=== PATIENT | male | born 1950 | race Caucasian/White ===

== ENCOUNTER 2021-12-17 15:43 | Observation (INO) | payer OTHER, MEDICARE ==
[2021-12-17] MEDS ORDERED: MORPHINE SULFATE 4 MG/ML SYRINGE IV STA (16:13)
[2021-12-17] MEDS ORDERED: SODIUM CHLORIDE 0.9% 500 ML 500 ML IV STA (16:13)
[2021-12-17] MEDS ORDERED: ONDANSETRON 4 MG/2 ML VIAL IVP STA (16:17)
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
[2021-12-17 16:27] LABS: Basophils % (A) 0 %; Eosinophils # (A) 0.1 k/uL (0-0.7); Eosinophils % (A) 1 %; HCT 47.1 % (39.0-53.0); HGB 14.7 gm/dL (13.0-17.5); Lymphocytes % (A) 17 %; MCH 28.2 pg (25.0-35.0); MCHC 31.1 g/dL (31.0-37.0); MCV 90.6 fL (80.0-100.0); Mean Platelet Volume 8.7; Monocytes # (A) 0.5 k/uL (0-1.0); Monocytes % (A) 4 %; Neutrophils # (A) 9.1 k/uL (1.3-7.7); Neutrophils % (A) 77 %; Platelet Count 228 k/uL (150-450); RDW 15.2 % (11.5-15.5); WBC 11.9 k/uL (3.8-10.6)
[2021-12-17 16:35] LABS: Albumin 4.3 g/dL (3.5-5.0); Calcium 9.3 mg/dL (8.4-10.2); Potassium 4.2 mmol/L (3.5-5.1); Total Bilirubin 0.9 mg/dL (0.2-1.3); Total Protein 7.5 g/dL (6.3-8.2)
[2021-12-17 16:42] LABS: INR 0.9 (<1.2); Prothrombin Time 9.6 sec (9.0-12.0)
[2021-12-17] MEDS ORDERED: HYDROmorphone 0.5 MG/0.5 ML SYRINGE IVP STA (17:45)
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
[2021-12-17] MEDS ORDERED: HYDROmorphone 1 MG/ML 1 ML SYRINGE IVP STA (18:32)
[2021-12-17] MEDS ORDERED: ONDANSETRON 4 MG/2 ML VIAL IVP PRN (19:00)
[2021-12-17] MEDS ORDERED: NALOXONE 0.4 MG/ML 1 ML VIAL IV PRN (19:00)
[2021-12-17] MEDS ORDERED: DIPH,PERTUS(ACELL)TETVAC-LF 0.5 ML VIAL IM ONE (19:02)
[2021-12-17] MEDS: SODIUM CHLORIDE 0.9% 1,000 ML IV SCH (19:21)
[2021-12-17] MEDS: KETOROLAC 15 MG/ML 1 ML VIAL IVP SCH (20:51)
[2021-12-18] MEDS: HYDROmorphone 0.5 MG/0.5 ML SYRINGE IVP PRN ×5 (00:13→19:34)
[2021-12-18] MEDS: SODIUM CHLORIDE 0.9% 1,000 ML IV SCH ×3 (03:00→18:09)
[2021-12-18] MEDS: KETOROLAC 15 MG/ML 1 ML VIAL IVP SCH ×3 (06:01→20:44)
[2021-12-18] MEDS ORDERED: ALBUTEROL NEBULIZED 2.5 MG/3 ML INHALATION PRN (08:48)
[2021-12-18] MEDS ORDERED: BUDESONIDE 0.5 MG/2 ML NEBU INHALATION PRN (08:48)
[2021-12-18] MEDS ORDERED: MONTELUKAST 10 MG TAB PO SCH (09:00)
[2021-12-18] MEDS ORDERED: PANTOPRAZOLE 40 MG TABLET PO SCH (09:00)
[2021-12-18] MEDS ORDERED: PANTOPRAZOLE 40 MG/10 ML VIAL IV SCH (09:00)
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
--- NOTE | 2021-12-18 10:06 | XR ---
EXAMINATION TYPE: XR tibia fibula RT DATE OF EXAM: 12/18/2021 CLINICAL HISTORY: pain TECHNIQUE: AP and lateral images of the right tibia and fibula are obtained. COMPARISON: 12/17/2021 FINDINGS: Medial malleolar fracture is redemonstrated. Vague linear lucency lateral malleolus may ref lect additional fracture. No additional fractures identified within the [id number]. Total knee art hroplasty changes noted. The overlying soft tissue appears unremarkable. IMPRESSION: Medial malleolar fracture is redemonstrated. Vague linear lucency lateral malleolus may reflect addit ional fracture. No additional fractures identified at this time.
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
[2021-12-18 11:03] LABS: HCT 40.5 % (39.0-53.0); HGB 12.7 gm/dL (13.0-17.5); MCH 29.1 pg (25.0-35.0); MCHC 31.5 g/dL (31.0-37.0); MCV 92.7 fL (80.0-100.0); Mean Platelet Volume 9.1; Platelet Count 185 k/uL (150-450); RBC 4.37 m/uL (4.30-5.90); RDW 15.2 % (11.5-15.5); WBC 11.1 k/uL (3.8-10.6)
[2021-12-18 11:18] LABS: ALT 71 U/L (4-49); AST 50 U/L (17-59); African American GFR (CKD) 67 (>60 ml/min/1.73 sqM); Albumin 3.6 g/dL (3.5-5.0); Albumin/Globulin Ratio 1.3; Alkaline Phosphatase 61 U/L (38-126); Anion Gap 4 mmol/L; Blood Urea Nitrogen 25 mg/dL (9-20); Calcium 8.5 mg/dL (8.4-10.2); Carbon Dioxide 29 mmol/L (22-30); Chloride 101 mmol/L (98-107); Globulin 2.7 g/dL; Glucose 97 mg/dL (74-99); Non-African American GFR(CKD) 58 (>60 ml/min/1.73 sqM); Potassium 4.4 mmol/L (3.5-5.1); Sodium 134 mmol/L (137-145); Total Bilirubin 0.9 mg/dL (0.2-1.3); Total Protein 6.3 g/dL (6.3-8.2)
[2021-12-18] MEDS: SPIRONOLACTONE 25 MG TAB PO SCH (12:13)
[2021-12-18] MEDS: ISOSORBIDE MONONITRATE ER 30 MG TAB.ER.24H PO SCH (12:13)
[2021-12-18] MEDS: ASPIRIN 81 MG PO SCH (12:13)
[2021-12-18] MEDS: ATORVASTATIN 40 MG TAB PO SCH (12:14)
[2021-12-18] MEDS: METOPROLOL TARTRATE 25 MG TAB PO SCH (12:14)
[2021-12-18] MEDS: BRIMONIDINE TARTRATE 0.2% DROPS 5 ML BTL BOTH EYES SCH (12:14)
--- NOTE | 2021-12-18 13:07 | P.PN ---
Progress Note - Text Progress Note Date: 12/18/21 Orthopedics: Previously placed splint over the right lower extremity has been removed at the bedside. A new right lower extremity leg splint has been placed for his bimalleolar ankle fracture. Patient will remain strict nonweightbearing on right lower extremity. Patient will be cleared for discharge from an orthopedic standpoint once cleared by trauma surgery. We will plan to have the patient follow up early next week on 12/20/2021, or 12/21/2021, for further evaluation at [facility]. Pertinent studies: X-rays of the right tibia and fibula taken on 12/18/2021: Medial malleolus fracture redemonstrated; a linear lucency at the lateral malleolus which could represent fracture; no additional fractures identified at this time; evidence of right total knee arthroplasty changes
[2021-12-18 14:26] LABS: Appearance,Urine Clear (Clear); Bilirubin,Urine Negative (Negative); Blood,Urine Negative (Negative); Color,Urine Yellow; Glucose,Urine (UA) Negative (Negative); Ketones,Urine Negative (Negative); Leukocyte Esterase,Urine Negative (Negative); Nitrite,Urine Negative (Negative); PH, Urine 5.5 (5.0-8.0); Protein,Urine Negative (Negative); Specific Gravity,Urine 1.017 (1.001-1.035); Urobilinogen,Urine <2.0 mg/dL (<2.0)
[2021-12-18] MEDS: LOSARTAN-HCTZ 50-12.5 MG 1 EACH TAB PO SCH (14:40)
--- NOTE | 2021-12-18 16:27 | XR ---
EXAMINATION TYPE: XR chest 1V portable DATE OF EXAM: 12/18/2021 COMPARISON: NONE HISTORY: Bloody sputum TECHNIQUE: Single view portable FINDINGS: There is no heart failure nor confluent pneumonic infiltrate. Costophrenic angles are clear . There are no hilar masses. Bony thorax appears intact. IMPRESSION: No active cardiopulmonary disease.
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
[2021-12-19] MEDS: HYDROmorphone 0.5 MG/0.5 ML SYRINGE IVP PRN ×2 (01:35→04:13)
[2021-12-19 03:25] VITALS: RESP 18
[2021-12-19] MEDS: SODIUM CHLORIDE 0.9% 1,000 ML IV SCH (04:14)
[2021-12-19] MEDS: KETOROLAC 15 MG/ML 1 ML VIAL IVP SCH (05:40)
[2021-12-19 07:55] VITALS: BP 126/74; TEMP 98
[2021-12-19] MEDS ORDERED: PANTOPRAZOLE 40 MG TABLET PO SCH (09:00)
[2021-12-19] MEDS: ATORVASTATIN 40 MG TAB PO SCH (10:01)
[2021-12-19] MEDS: SPIRONOLACTONE 25 MG TAB PO SCH (10:02)
[2021-12-19] MEDS: ASPIRIN 81 MG PO SCH (10:02)
[2021-12-19] MEDS: BRIMONIDINE TARTRATE 0.2% DROPS 5 ML BTL BOTH EYES SCH (10:05)
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
[2021-12-19 10:27] VITALS: PULSE 54
[2021-12-19] MEDS: LOSARTAN-HCTZ 50-12.5 MG 1 EACH TAB PO SCH (10:43)
[2021-12-19] MEDS: ISOSORBIDE MONONITRATE ER 30 MG TAB.ER.24H PO SCH (10:43)
[2021-12-19] MEDS: METOPROLOL TARTRATE 25 MG TAB PO SCH (10:43)
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
[2021-12-19 11:14] LABS: Basophils % (A) 0 %; Eosinophils % (A) 1 %; HCT 42.3 % (39.0-53.0); HGB 12.9 gm/dL (13.0-17.5); Hypochromasia Slight; Lymphocytes # (A) 0.9 k/uL (1.0-4.8); Lymphocytes % (A) 10 %; MCH 28.9 pg (25.0-35.0); MCHC 30.6 g/dL (31.0-37.0); MCV 94.5 fL (80.0-100.0); Mean Platelet Volume 8.2; Monocytes # (A) 0.5 k/uL (0-1.0); Monocytes % (A) 6 %; Neutrophils # (A) 7.3 k/uL (1.3-7.7); Neutrophils % (A) 82 %; Platelet Count 171 k/uL (150-450); RBC 4.48 m/uL (4.30-5.90); RDW 15.3 % (11.5-15.5); WBC 8.9 k/uL (3.8-10.6)
[2021-12-19 11:28] LABS: ALT 54 U/L (4-49); AST 38 U/L (17-59); African American GFR (CKD) 69 (>60 ml/min/1.73 sqM); Albumin 3.7 g/dL (3.5-5.0); Albumin/Globulin Ratio 1.2; Alkaline Phosphatase 62 U/L (38-126); Anion Gap 6 mmol/L; Blood Urea Nitrogen 22 mg/dL (9-20); Calcium 8.6 mg/dL (8.4-10.2); Carbon Dioxide 25 mmol/L (22-30); Chloride 106 mmol/L (98-107); Glucose 108 mg/dL (74-99); Non-African American GFR(CKD) 60 (>60 ml/min/1.73 sqM); Potassium 4.8 mmol/L (3.5-5.1); Sodium 137 mmol/L (137-145); Total Bilirubin 0.9 mg/dL (0.2-1.3); Total Protein 6.7 g/dL (6.3-8.2)
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
== END 2021-12-19 12:16 | disposition home or self-care (01) ==
LOC: EC 15:43 → 6NMEDSUR 19:00
PROVIDERS: ADMIT Surgery; ATTEND Surgery
DX: S36.429A Contusion of unspecified part of small intestine, initial encounter (principal); S20.219A Contusion of unspecified front wall of thorax, initial encounter; S82.51XA Displaced fracture of medial malleolus of right tibia, initial encounter for closed fracture; S00.81XA Abrasion of other part of head, initial encounter; R04.2 Hemoptysis; M54.2 Cervicalgia; Z23 Encounter for immunization; Z79.82 Long term (current) use of aspirin; Z79.899 Other long term (current) drug therapy; V43.52XA Car driver injured in collision with other type car in traffic accident, initial encounter; Y92.410 Unspecified street and highway as the place of occurrence of the external cause; I10 Essential (primary) hypertension; I25.10 Atherosclerotic heart disease of native coronary artery without angina pectoris; E78.5 Hyperlipidemia, unspecified; E66.9 Obesity, unspecified; Z68.41 Body mass index [BMI] 40.0-44.9, adult; J45.909 Unspecified asthma, uncomplicated; L40.9 Psoriasis, unspecified; M19.90 Unspecified osteoarthritis, unspecified site; Z96.651 Presence of right artificial knee joint; Z83.3 Family history of diabetes mellitus; Z82.49 Family history of ischemic heart disease and other diseases of the circulatory system
CPT/HCPCS: 99285; 96376 ×4; 96361 ×3; 96375 ×2; 90471; 96374; 36415; 80053 ×3; 83690; 85025 ×2; 85027; 85610; 85730; 81003; 73590; 73610; 71045; 72125; 70450; 71260; 74177; 90715; G0378 ×3; L0120; J2270; J2405; J1170 ×4; J1885 ×3; C9113; Q9967

== ENCOUNTER → 2023-06-14 | Outpatient (CLI) | payer MEDICARE ==
[2023-06-14 09:17] VITALS: BP 120/71; PULSE 89; RESP 15; TEMP 98.2
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
== END ==
LOC: PNWHC3 08:12
PROVIDERS: ATTEND Specialist
DX: M51.36 Other intervertebral disc degeneration, lumbar region (principal); M19.90 Unspecified osteoarthritis, unspecified site; J45.909 Unspecified asthma, uncomplicated; I10 Essential (primary) hypertension; E78.5 Hyperlipidemia, unspecified; K21.9 Gastro-esophageal reflux disease without esophagitis; Z79.899 Other long term (current) drug therapy; Z79.82 Long term (current) use of aspirin
CPT/HCPCS: 99211

== ENCOUNTER 2023-06-27 08:17 | Day surgery (SDC) | payer MEDICARE ==
[~2023-06-27 08:17] MED LIST: LACTATED RINGERS 1,000 ML IV SCH
[2023-06-27 08:37] LABS: Glucose,Whole Blood 121 mg/dL (70-110)
[2023-06-27] MEDS ORDERED: methylPREDNISolone ACETATE 40 MG/ML 1 ML VIAL ONE (08:43)
[2023-06-27] MEDS ORDERED: IOPAMIDOL M200 10 ML VIAL ONE (08:43)
[2023-06-27 08:57] VITALS: RESP 16; TEMP 98.3
[2023-06-27 09:18] VITALS: BP 122/56; PULSE 58
--- NOTE | 2023-06-27 09:20 | FL ---
Intraoperative/procedural fluoroscopic services were provided for lumbar epidural steroid injection. Total fluoroscopy time is 8.5 seconds with a total of 1 submitted image to PACS. Total DAP [id number] mG ym2. Please see the operative note for further details.
--- NOTE | 2023-06-27 09:35 | P.PCN ---
Date of Procedure: 06/27/23 Description of Procedure: PREOPERATIVE DIAGNOSIS: lumbar radiculopathy POSTOPERATIVE DIAGNOSIS: Lumbar radiculopathy PROCEDURE 1. Lumbar epidural steroid injection under fluoroscopic guidance at the L 4/5 level. 2. Lumbar epidurogram. Imaging: Fluoroscopy was used, images where saved to the medical record ANESTHESIA: Local only EBL: Minimal PROCEDURE INDICATION: The patient with low back pain and radiculitis symptoms unresponsive to conservative treatment. Fluoroscopy was used to optimize visualization of the needle placement and to maximize safety. PROCEDURE DESCRIPTION / TECHNIQUE: The patient was seen and identified in the preoperative area. Risks, benefits, complications including but not limited to infections, bleeding, allergic r eaction to medications, nerve damage and incomplete pain relief, as well as alternatives to the procedure were discussed with the patient. The patient agreed to proceed with the procedure and signed the consent. IV was started if indicated above, and vital signs were stable. Patient was taken to the OR and time out was completed. The patient was placed in the prone position on procedure table and a pillow was placed under the abdomen to reduce lumbar lordosis. The lumbosacral area was prepped and draped in the usual sterile fashion. Vitals were closely monitored during the procedure. Using anterior-posterior fluoroscopy, the L4/5 interlaminar space was identified and the skin over this site was marked and then infiltrated with 1% lidocaine subcutaneously. Subsequently, a 20-gauge Tuohy epidural needle was inserted and advanced toward the epidural space using the Loss of resistance technique and guided by AP and lateral fluoroscopy. The correct needle position in the epidural space was verified with the injection of 1 mL of Omnipaque 180 contrast to observe an acceptable epidurogram, after negative aspiration for blood and CSF and in the absence of paresthesias. Again after negative aspiration, a 3 ml mixture containing 40mg of depomedrol and 2 ml of preservative free Normal Saline was injected and a washout of epidurogram was seen. Needle was withdrawn intact, skin was cleansed, and bandages were applied. COMPLICATIONS: None DISPOSITION / PLANS: The patient was placed in a supine position and transferred to the recovery area in a stable condition for observation. There was no evidence of lower extremity motor or sensory deficit after the procedure. Patient was discharged from the recovery room after meeting discharge criteria. Home discharge instructions were given to the patient by the staff. The patient was reexamined prior to discharge. The patient will follow up as directed.
== END 2023-06-27 09:23 | disposition home or self-care (01) ==
LOC: ORPAIN 08:17
PROVIDERS: ATTEND Hospitalist
DX: M54.16 Radiculopathy, lumbar region (principal); Z79.82 Long term (current) use of aspirin
CPT/HCPCS: 62323; J1030; Q9966

== ENCOUNTER → 2023-07-24 | Outpatient (CLI) | payer MEDICARE ==
[2023-07-24 08:57] VITALS: BP 134/82; PULSE 85; RESP 15; TEMP 98.5
--- NOTE | 2023-07-24 12:30 | P.PAINPG ---
PQRS Measure Charge Sheet Comment: HISTORY OF PRESENT ILLNESS: 72 yr old male w at side presents today w severe and chronic LBP x 2 yrs secondary to DDD, spondylosis and facet arthropathy without myelopathy for evaluation s/p LYNN L4-L5 #1. Pt states he experienced 60 % pain relief x 2-3 wks s/p procedure. Pt states pain level is provoked at 8 /10 in intensity, constant, localized in the mid to lower lumbar spine, predominantly axial, achy in character w occasional shooting pain towards the BLEs and ankles. Pain is provoked by standing/ walking/laying in 1 position for periods of 15 min or more. Pain is alleviated by PT integrated w massage x 6 wks which ended in May 2023, chiropractic treatments semi monthly in January 2023, heat, medications, topical, repositioning and rest. Oswestry axial pain score at 23. Interventional procedures include LYNN L4-L5 #1 Medications include Tyl #3, Ibu REVIEW OF ORGAN SYSTEMS: CONSTITUTIONAL: No fevers or chills. No recent weight loss. NEUROLOGICAL: + numbness and tingling along the distal extremities. No seizure disorders or headaches. MUSCULOSKELETAL: + pain PSYCHIATRIC: Denies current depression or suicidal thoughts. Physical Examinations : Constitutional : Cooperative , not in acute distress . Neurologic : Cranial nerve II to XII intact. No focal neurological deficits. Psychiatric : alert & oriented x 3. Matching mood & appropriate affect. Judgment & insight intact. Musculoskeletal : Cervical Spine Motor strength in the deltoid and biceps: Normal right side. Normal Left side Motor strength biceps and the wrist extensors: Normal right side . Normal left side Motor strength in the triceps muscle: Normal right side. Normal left side Deep tendon reflexes: Normal at the biceps. Normal at Brachioradialis. Normal at triceps Vertebral body tenderness to deep palpation over Cervical facet loading test: positive bilaterally Spurling test: positive bilaterally Neck distraction test: positive bilaterally Lucy sign: positive bilaterally Lumbar spine Motor strength lower extremities ,thigh and legs 5/5 Right side , 5/5 Left side Deep tendon reflexes : Normal Knee Jerk. Normal Ankle Jerk Vertebral body tenderness over L5 Carter Test positive Lumbar facet Loading Test: positive Right / positive Left Range of motion of the lumbar spine Flexion 30 degrees, extension 10 degrees Straight Leg Raise test: Left/ Right positive at 35 degrees Efrain test: positive right / positive left. Severe tenderness over the Sacroiliac joint on the Right / Left sides Gaenslen test: positive bilaterally Seated flexion test: positive bilaterally. Sacral spine : Severe tenderness over the Sacroiliac joint: right side / left side Range of motion: Flexion of the lumbar spine <60 degrees Range of motion: Extension of the lumbar spine <20 degrees Gaenslen's Test positive Daniel's Test positive Efrain test: positive right side / left side Thigh Thrust Test Sacral Thrust Test Imaging: MRI noncontrast of the lumbar spine from 04/17/23 reviewed Assessment/ Plan : Lumbar DDD Recommendation of LYNN L5-S1 #2. May need a series of injections for optimal pain relief. Risks, benefits of procedure discussed and patient verbalized understanding. Admits to anti- coagulant use or medical history of diabetes. Protocol for discontinuation/ continuation of medications ivania procedure discussed. Minimal anesthesia provided, if clinically indicated, consisting of Versed and Fentanyl. All questions answered. I have spent greater than 30 minutes on patient care today. Dr Owen was available by phone for the evaluation of this patient. The time was used to review the medical records including relevant urine studies and Prescription history (MAPs), review of the available imaging, evaluation and examination of the patient, coordination of care with the medical staff and if applicable referring physicians, as well as creation of the medical record - Pain Location Bilateral Lower Back Non-Pharmacological Interventions: Ice, Position/Reposition, Sitting Pharmacological Interventions: Epidural, PRN Medication PQRS Narrative: Hx Alcohol Use (MH) No Home Medications: Ambulatory Orders Albuterol Nebulized [Ventolin Nebulized] 2.5 mg INHALATION RT-TID PRN 12/17/21 Aspirin EC [Ecotrin Low Dose] 81 mg PO DAILY 12/17/21 Atorvastatin [Lipitor] 40 mg PO DAILY 12/17/21 Brimonidine Tartrate [Alphagan P 0.15% Ophth Soln] 1 drops BOTH EYES DAILY 12/17/21 Fluocinonide [Fluocinonide 0.1%] 1 applic TOPICAL BID 12/17/21 Losartan/Hydrochlorothiazide [Losartan-Hctz 50-12.5 mg Tab] 1 tab PO DAILY 12/17/21 Metoprolol Tartrate [Lopressor] 25 mg PO DAILY 12/17/21 Spironolactone 12.5 mg PO DAILY 12/17/21 metHOTREXate sodium 15 mg PO MO 12/17/21 HYDROcodone/APAP 7.5-325MG [[place] 7.5-325] 1 tab PO Q4H PRN 3 Days #18 tab 12/19/21 Benralizumab [Fasenra] 1 dose SQ Q56D 06/23/23 Famotidine [Pepcid] 10 mg PO DAILY 06/23/23 Folic Acid 1 mg PO DAILY 06/23/23 Furosemide [Lasix] 20 mg PO BID 06/23/23 metFORMIN HCL [Glucophage] 500 mg PO BID 06/23/23 Controlled Substance Measures - Controlled Substance Measures Is patient prescribed a controlled substance at discharge?: No
== END ==
LOC: PNWHC3 08:08
PROVIDERS: ATTEND Specialist
DX: M51.36 Other intervertebral disc degeneration, lumbar region (principal); Z79.82 Long term (current) use of aspirin
CPT/HCPCS: 99211

== ENCOUNTER 2023-08-10 09:35 | Day surgery (SDC) | payer MEDICARE ==
[2023-08-08 10:39] VITALS: BMI 41.0
[2023-08-10 10:05] LABS: Glucose,Whole Blood 108 mg/dL (70-110)
[2023-08-10 10:13] VITALS: TEMP 98.1
[2023-08-10] MEDS ORDERED: IOPAMIDOL M200 10 ML VIAL ONE (10:14)
[2023-08-10] MEDS ORDERED: methylPREDNISolone ACETATE 40 MG/ML 1 ML VIAL ONE (10:14)
--- NOTE | 2023-08-10 10:27 | P.PCN ---
Date of Procedure: 08/10/23 Procedure(s) Performed: PREOPERATIVE DIAGNOSIS: 1- Lumbar Degenerative Disc Diseases 2-lumbar radiculopathy POSTOPERATIVE DIAGNOSIS: 1-lumbar degenerative disc disease. 2-lumbar radiculopathy. PROCEDURE 1. Lumbar epidural steroid injection under fluoroscopic guidance at the L5-S1 level. (Fluoroscopy imaging was available in radiology department) 2. Lumbar epidurogram. ANESTHESIA: Lidocaine 1% 3 and then only. EBL: Minimal PROCEDURE INDICATION: The patient with low back pain and radiculitis symptoms unresponsive to conservative treatment. Fluoroscopy was used to optimize visualization of the needle placement and to maximize safety. PROCEDURE DESCRIPTION / TECHNIQUE: The patient was seen and identified in the preoperative area. Risks, benefits, complications including but not limited to infections ,bleeding ,allergic reaction to the medications ,nerve damage and not complete pain releife , and alternatives were discussed with the patient. The patient agreed to proceed with the procedure and signed the consent, and vital signs were stable. Patient was taken to the OR and time out was completed. The patient was placed in the prone position on procedure table and a pillow was placed under the abdomen to reduce lumbar lordosis. The lumbosacral area was prepped and draped in the usual sterile fashion.ere closely monitored during the procedure. Vital signs was monitered during the entire procedure. Using anterior-posterior fluoroscopy, the L5-S1 interlaminar space was identified and the skin over this site was marked and then infiltrated with 1% lidocaine subcutaneously. Subsequently, a 20-gauge Tuohy epidural needle was inserted and advanced toward the epidural space using the ``Loss of resistance technique and guided by AP and lateral fluoroscopy. The correct needle position in the epidural space was verified with the injection of 2 mL of the water soluble contrast dye Isovue 200 contrast and observing an excellent epidurogram with the epidural spread of the dye, after negative aspiration for blood and CSF and in the absence of paresthesias. Again after negative aspiration, a 6 ml mixture containing 40 mg of Depo-medrol ( Preservetive Free ), and 2 ml of preservative free Normal Saline, and 2 ml of preservative free lidocaine 1% solution was injected and a washout of epidurogram was seen. Needle was withdrawn intact, skin was cleansed, and bandages were applied. COMPLICATIONS: None DISPOSITION / PLANS: The patient was placed in a supine position and transferred to the recovery area in a stable condition for observation. There was no evidence of lower extremity motor or sensory deficit after the procedure. Patient was discharged from the recovery room after meeting discharge criteria. Home discharge instructions were given to the patient by the staff. The patient was reexamined prior to discharge. The patient will schedule a follow up in the clinic in 2-4 weeks.
[2023-08-10 10:37] VITALS: BP 134/77; PULSE 68; RESP 17
--- NOTE | 2023-08-10 10:40 | FL ---
Fluoroscopy History: LESI 3 sec fl time used dap [id number] lesi with doctor leopoldo
== END 2023-08-10 11:15 | disposition home or self-care (01) ==
LOC: ORPAIN 09:35
PROVIDERS: ATTEND Specialist
DX: M51.16 Intervertebral disc disorders with radiculopathy, lumbar region (principal); E11.9 Type 2 diabetes mellitus without complications; Z79.82 Long term (current) use of aspirin; Z79.899 Other long term (current) drug therapy
CPT/HCPCS: 62323; J1030; Q9966

== ENCOUNTER → 2023-09-11 | Outpatient (CLI) | payer MEDICARE ==
[2023-09-11 08:44] VITALS: BP 129/82; PULSE 89; RESP 15; TEMP 98.7
--- NOTE | 2023-09-11 13:56 | P.PAINPG ---
PQRS Measure Charge Sheet Comment: HISTORY OF PRESENT ILLNESS: A 72 yr old male w at side presents today w severe and chronic LBP x 2 yrs secondary to DDD, spondylosis and facet arthropathy without myelopathy for evaluation s/p LYNN L5- S1 #2. Pt states he experienced 0 % pain relief x 2-3 wks s/p procedure. Pt states pain level is provoked at 9/10 in intensity, constant, localized in the mid to lower lumbar spine, predominantly axial, achy in character w occasional shooting pain towards the BLEs and ankles. Pain is provoked by standing/ walking/laying in 1 position for periods > 15 min. Pain is alleviated by PT integrated w massage x 6 wks which ended in May 2023, chiropractic treatments semi monthly in January 2023, heat, medications, topical, repositioning and rest. Oswestry axial pain score at 23. Interventional procedures include LYNN L4-L5 #1, L5-S1 x1 Medications include Tyl #3, Ibu REVIEW OF ORGAN SYSTEMS: CONSTITUTIONAL: No fevers or chills. No recent weight loss. NEUROLOGICAL: + numbness and tingling along the distal extremities. No seizure disorders or headaches. MUSCULOSKELETAL: + pain PSYCHIATRIC: Denies current depression or suicidal thoughts. Physical Examinations : Constitutional : Cooperative , not in acute distress . Neurologic : Cranial nerve II to XII intact. No focal neurological deficits. Psychiatric : alert & oriented x 3. Matching mood & appropriate affect. Judgment & insight intact. Musculoskeletal : Cervical Spine Motor strength in the deltoid and biceps: Normal right side. Normal Left side Motor strength biceps and the wrist extensors: Normal right side . Normal left side Motor strength in the triceps muscle: Normal right side. Normal left side Deep tendon reflexes: Normal at the biceps. Normal at Brachioradialis. Normal at triceps Vertebral body tenderness to deep palpation over Cervical facet loading test: positive bilaterally Spurling test: positive bilaterally Neck distraction test: positive bilaterally Lucy sign: positive bilaterally Lumbar spine Motor strength lower extremities ,thigh and legs 5/5 Right side , 5/5 Left side Deep tendon reflexes : Normal Knee Jerk. Normal Ankle Jerk Vertebral body tenderness Carter Test positive Lumbar facet Loading Test: positive Right / positive Left over L4-L5-, L5-S1 Range of motion of the lumbar spine Flexion 30 degrees, extension 10 degrees Straight Leg Raise test: Left/ Right positive at 35 degrees Efrain test: positive right / positive left. Severe tenderness over the Sacroiliac joint on the Right / Left sides Gaenslen test: positive bilaterally Seated flexion test: positive bilaterally. Sacral spine : Severe tenderness over the Sacroiliac joint: right side / left side Range of motion: Flexion of the lumbar spine <60 degrees Range of motion: Extension of the lumbar spine <20 degrees Gaenslen's Test positive Daniel's Test positive Efrain test: positive right side / left side Thigh Thrust Test Sacral Thrust Test Imaging: MRI noncontrast of the lumbar spine from 04/17/23 reviewed Assessment/ Plan : Lumbar DDD Recommendation of BL L4-L5, L5-S1 #1. May need a series of injections, up until RFA, for optimal pain relief. Risks, benefits of procedure discussed and patient verbalized understanding. Admits to anti- coagulant use or medical history of diabetes. Protocol for discontinuation/ continuation of medications ivania procedure discussed. Minimal anesthesia provided, if clinically indicated, consisting of Versed and Fentanyl. All questions answered. I have spent greater than 30 minutes on patient care today. Dr Owen was available by phone for the evaluation of this patient. The time was used to review the medical records including relevant urine studies and Prescription history (MAPs), review of the available imaging, evaluation and examination of the patient, coordination of care with the medical staff and if applicable referring physicians, as well as creation of the medical record PQRS Narrative: Hx Alcohol Use (MH) No Home Medications: Ambulatory Orders Aspirin EC [Ecotrin Low Dose] 81 mg PO DAILY 12/17/21 Atorvastatin [Lipitor] 40 mg PO DAILY 12/17/21 Brimonidine Tartrate [Alphagan P 0.15% Ophth Soln] 1 drops BOTH EYES DAILY 12/17/21 Fluocinonide [Fluocinonide 0.1%] 1 applic TOPICAL BID 12/17/21 Losartan/Hydrochlorothiazide [Losartan-Hctz 50-12.5 mg Tab] 1 tab PO DAILY 12/17/21 Metoprolol Tartrate [Lopressor] 25 mg PO DAILY 12/17/21 Spironolactone 12.5 mg PO DAILY 12/17/21 metHOTREXate sodium 15 mg PO MO 12/17/21 HYDROcodone/APAP 7.5-325MG [[place] 7.5-325] 1 tab PO Q4H PRN 3 Days #18 tab 12/19/21 Benralizumab [Fasenra] 1 dose SQ Q56D 06/23/23 Famotidine [Pepcid] 10 mg PO DAILY 06/23/23 Folic Acid 1 mg PO DAILY 06/23/23 Furosemide [Lasix] 20 mg PO BID 06/23/23 metFORMIN HCL [Glucophage] 500 mg PO BID 06/23/23 Ibuprofen [Advil] 200 mg PO Q8HR PRN 08/10/23 Controlled Substance Measures - Controlled Substance Measures Is patient prescribed a controlled substance at discharge?: No
== END ==
LOC: PNWHC3 08:17
PROVIDERS: ATTEND Specialist
DX: M51.37 Other intervertebral disc degeneration, lumbosacral region (principal); Z79.82 Long term (current) use of aspirin
CPT/HCPCS: 99211

== ENCOUNTER 2023-09-29 08:14 | Day surgery (SDC) | payer MEDICARE ==
[2023-09-29 08:41] VITALS: TEMP 97.6
[2023-09-29 08:52] LABS: Glucose,Whole Blood 98 mg/dL (70-110)
[2023-09-29] MEDS ORDERED: ROPIVACAINE 5MG/ML 20ML VIAL ONE (09:11)
[2023-09-29] MEDS ORDERED: fentaNYL (PF) 50 MCG/ML 2 ML AMP ONE (09:12)
[2023-09-29] MEDS ORDERED: MIDAZOLAM 2 MG/2 ML VIAL ONE (09:12)
--- NOTE | 2023-09-29 09:47 | P.PCN ---
Description of Procedure: Preprocedure diagnosis. 1. Lumbar spondylosis with facet joint arthropathy without myelopathy. 2. Lumbar degenerative disc disease. Postprocedure diagnosis. As above. Procedure done. Bilateral diagnostic block with local anesthetics at L3, L4, L5 medial branch to target the facet joint L4- 5 and L5-S1 with fluoroscopic guidance (fluoroscopy images are available in the radiology department) . Anesthesia. As per anesthesia department. In OR, continuous pulse ox, EKG, blood pressure and verbal communication was maintained. Blood loss. Minimal. Indication. The patient has low back pain secondary to lumbar facet joint arthropathy. Discussed the procedure and alternative and complications which includes infection, bleeding, nerve damage, paralysis ,aggravation of pain. Patient understands and all questions were answered. Patient iunderstands that if any pain relief occurs it will last for a few hours to a few days maximum. Procedure description. After getting consent patient was taken in the OR in prone position. Back prepped with chlorhexidine and draped in sterile fashion. After injecting 5 mL of plain 1% lidocaine subcutaneously, a 22-gauge spinal needle was introduced under tunnel vision of the fluoroscope at the junction of the superior articular process with RIGHT ala of the sacrum. With slight oblique fluoroscope, after injecting 5 mL of plain 1% lidocaine subcutaneously, a 22-gauge spinal needle was introduced under tunnel vision of the fluoroscope at the junction of the superior articular process with RIGHT L5 transverse process, junction of the superior articular process with the RIGHT L4 transverse process. Negative CSF, negative blood, negative paresthesia. After needle p osition confirmation by AP and crosstable lateral view, after negative aspiration, half milliliters of 0.5% ropivacaine were injected at each point. In exactly same way, LEFT sided injections were done at the following 3 points. Junction of the superior articular process with left ala of the sacrum, junction of the superior articular process with the left L5 transverse process, junction of the superior articular process with left L4 transverse process using 0.5 mL of 0.5% preservative-free ropivacaine at each point. Spinal needles were taken out and bandages were applied. Disposition. Patient tolerated the procedure well. No complication. Discharged home in stable condition.
[2023-09-29 09:56] LABS: Glucose,Whole Blood 109 mg/dL (70-110)
[2023-09-29 10:01] VITALS: RESP 16
[2023-09-29 10:27] VITALS: BP 130/79; PULSE 65
--- NOTE | 2023-09-29 12:37 | FL ---
EXAMINATION TYPE: FL guided pain mgmt statistic DATE OF EXAM: 09/29/2023 FLUOROSCOPY Fluoroscopy time of 1 minute 10 seconds was used during bilateral lumbar facet blocks. 4 image/s docu ment/s the procedure. .[id number] Gycm2 DAP
== END 2023-09-29 10:24 ==
LOC: ORPAIN 08:14
PROVIDERS: ATTEND Pain Medicine Interventional Pain Medicine
DX: M51.36 Other intervertebral disc degeneration, lumbar region (principal); M47.816 Spondylosis without myelopathy or radiculopathy, lumbar region; I25.10 Atherosclerotic heart disease of native coronary artery without angina pectoris; I10 Essential (primary) hypertension; E78.5 Hyperlipidemia, unspecified; J45.909 Unspecified asthma, uncomplicated; G47.33 Obstructive sleep apnea (adult) (pediatric); K21.9 Gastro-esophageal reflux disease without esophagitis; E11.9 Type 2 diabetes mellitus without complications; Z79.51 Long term (current) use of inhaled steroids; Z79.82 Long term (current) use of aspirin; Z79.84 Long term (current) use of oral hypoglycemic drugs; Z79.899 Other long term (current) drug therapy; Z90.49 Acquired absence of other specified parts of digestive tract; Z96.653 Presence of artificial knee joint, bilateral; Z98.890 Other specified postprocedural states
CPT/HCPCS: 64493; 64494 ×2; J2250; J3010; J2795

== ENCOUNTER → 2023-10-18 | Outpatient (CLI) | payer MEDICARE ==
[2023-10-18 09:06] VITALS: BP 147/86; PULSE 77; RESP 15; TEMP 98.5
--- NOTE | 2023-10-18 14:27 | P.PAINPG ---
PQRS Measure Charge Sheet Comment: HISTORY OF PRESENT ILLNESS: A 72 yr old male w at side presents today w severe and chronic LBP x 2 yrs secondary to DDD, spondylosis and facet arthropathy without myelopathy for evaluation s/p BL MBB L3-L5 #1. Pt states he experienced 100 % pain relief x 4 hrs s/p procedure. Pt states pain level is provoked at 9/10 in intensity, constant, localized in the mid to lower lumbar spine, predominantly axial, achy in character w occasional shooting pain towards the BLEs and ankles. Pain is provoked by standing/ walking/laying in 1 position for periods > 15 min. Pain is alleviated by PT integrated w massage x 6 wks which ended in May 2023, chiropractic treatments semi monthly in January 2023, heat, medications, topical, repositioning and rest. Oswestry axial pain score at 22. Interventional procedures include LYNN L4-L5 #1, L5-S1 x1, BL MBB L3-L5 x1 Medications include Tyl #3, Ibu REVIEW OF ORGAN SYSTEMS: CONSTITUTIONAL: No fevers or chills. No recent weight loss. NEUROLOGICAL: + numbness and tingling along the distal extremities. No seizure disorders or headaches. MUSCULOSKELETAL: + pain PSYCHIATRIC: Denies current depression or suicidal thoughts. Physical Examinations : Constitutional : Cooperative , not in acute distress . Neurologic : Cranial nerve II to XII intact. No focal neurological deficits. Psychiatric : alert & oriented x 3. Matching mood & appropriate affect. Judgment & insight intact. Musculoskeletal : Cervical Spine Motor strength in the deltoid and biceps: Normal right side. Normal Left side Motor strength biceps and the wrist extensors: Normal right side . Normal left side Motor strength in the triceps muscle: Normal right side. Normal left side Deep tendon reflexes: Normal at the biceps. Normal at Brachioradialis. Normal at triceps Vertebral body tenderness to deep palpation over Cervical facet loading test: positive bilaterally Spurling test: positive bilaterally Neck distraction test: positive bilaterally Lucy sign: positive bilaterally Lumbar spine Motor strength lower extremities ,thigh and legs 5/5 Right side , 5/5 Left side Deep tendon reflexes : Normal Knee Jerk. Normal Ankle Jerk Vertebral body tenderness Carter Test positive Lumbar facet Loading Test: positive Right / positive Left over L4-L5-, L5-S1 Range of motion of the lumbar spine Flexion 30 degrees, extension 10 degrees Straight Leg Raise test: Left/ Right positive at 35 degrees Efrain test: positive right / positive left. Severe tenderness over the Sacroiliac joint on the Right / Left sides Gaenslen test: positive bilaterally Seated flexion test: positive bilaterally. Sacral spine : Severe tenderness over the Sacroiliac joint: right side / left side Range of motion: Flexion of the lumbar spine <60 degrees Range of motion: Extension of the lumbar spine <20 degrees Gaenslen's Test positive Daniel's Test positive Efrain test: positive right side / left side Thigh Thrust Test Sacral Thrust Test Imaging: MRI noncontrast of the lumbar spine from 04/17/23 reviewed Assessment/ Plan : Lumbar DDD Recommendation of BL MBB L4-L5, L5-S1 #2. May need a series of injections, up until RFA, for optimal pain relief. Risks, benefits of procedure discussed and patient verbalized understanding. Admits to anti- coagulant use or medical history of diabetes. Protocol for discontinuation/ continuation of medications ivania procedure discussed. Minimal anesthesia provided, if clinically indicated, consisting of Versed and Fentanyl. All questions answered. I have spent greater than 30 minutes on patient care today. Dr Owen was available by phone for the evaluation of this patient. The time was used to review the medical records including relevant urine studies and Prescription history (MAPs), review of the available imaging, evaluation and examination of the patient, coordination of care with the medical staff and if applicable referring physicians, as well as creation of the medical record PQRS Narrative: Hx Alcohol Use (MH) No Home Medications: Ambulatory Orders Aspirin EC [Ecotrin Low Dose] 81 mg PO QAM 12/17/21 Atorvastatin [Lipitor] 40 mg PO DAILY 12/17/21 Brimonidine Tartrate [Alphagan P 0.15% Ophth Soln] 1 drops BOTH EYES DAILY 12/17/21 Fluocinonide [Fluocinonide 0.1%] 1 applic TOPICAL BID 12/17/21 Losartan/Hydrochlorothiazide [Losartan-Hctz 50-12.5 mg Tab] 1 tab PO DAILY 12/17/21 Metoprolol Tartrate [Lopressor] 25 mg PO DAILY 12/17/21 Spironolactone 12.5 mg PO DAILY 12/17/21 metHOTREXate sodium 15 mg PO MO 12/17/21 HYDROcodone/APAP 7.5-325MG [[place] 7.5-325] 1 tab PO Q4H PRN 3 Days #18 tab 12/19/21 Benralizumab [Fasenra] 1 dose SQ Q56D 06/23/23 Famotidine [Pepcid] 10 mg PO DAILY 06/23/23 Folic Acid 1 mg PO DAILY 06/23/23 Furosemide [Lasix] 20 mg PO BID 06/23/23 metFORMIN HCL [Glucophage] 500 mg PO BID 06/23/23 Ibuprofen [Advil] 200 mg PO Q8HR PRN 08/10/23 Controlled Substance Measures - Controlled Substance Measures Is patient prescribed a controlled substance at discharge?: No
== END ==
LOC: PNWHC3 08:09
PROVIDERS: ATTEND Specialist
DX: M51.37 Other intervertebral disc degeneration, lumbosacral region (principal); Z79.82 Long term (current) use of aspirin
CPT/HCPCS: 99211

== ENCOUNTER → 2023-11-20 | Outpatient (CLI) | payer MEDICARE ==
--- NOTE | 2023-11-20 13:16 | P.PAINPG ---
PQRS Measure Charge Sheet Comment: HISTORY OF PRESENT ILLNESS: A 72 yr old male w at side presents today w severe and chronic LBP x 2 yrs secondary to DDD, spondylosis and facet arthropathy without myelopathy for evaluation s/p BL MBB L3-L5 #2. Pt states he experienced 80 % pain relief x 24 hrs s/p procedure. Pt states pain level is provoked at 8/10 in intensity, constant, localized in the mid to lower lumbar spine, predominantly axial, achy in character w occasional shooting pain towards the BLEs and ankles. Pain is provoked by standing/ walking/laying in 1 position for periods > 15 min. Pain is alleviated by PT integrated w massage x 6 wks which ended in May 2023, chiropractic treatments semi monthly in January 2023, physician guided home stretching regimen since May 2023, heat, medications, topical, repositioning and rest. Oswestry axial pain score at 21. Interventional procedures include LYNN L4-L5 #1, L5-S1 x1, BL MBB L3-L5 x2 Medications include Tyl #3, Ibu REVIEW OF ORGAN SYSTEMS: CONSTITUTIONAL: No fevers or chills. No recent weight loss. NEUROLOGICAL: + numbness and tingling along the distal extremities. No seizure disorders or headaches. MUSCULOSKELETAL: + pain PSYCHIATRIC: Denies current depression or suicidal thoughts. Physical Examinations : Constitutional : Cooperative , not in acute distress . Neurologic : Cranial nerve II to XII intact. No focal neurological deficits. Psychiatric : alert & oriented x 3. Matching mood & appropriate affect. Judgment & insight intact. Musculoskeletal : Cervical Spine Motor strength in the deltoid and biceps: Normal right side. Normal Left side Motor strength biceps and the wrist extensors: Normal right side . Normal left side Motor strength in the triceps muscle: Normal right side. Normal left side Deep tendon reflexes: Normal at the biceps. Normal at Brachioradialis. Normal at triceps Vertebral body tenderness to deep palpation over Cervical facet loading test: positive bilaterally Spurling test: positive bilaterally Neck distraction test: positive bilaterally Lucy sign: positive bilaterally Lumbar spine Motor strength lower extremities ,thigh and legs 5/5 Right side , 5/5 Left side Deep tendon reflexes : Normal Knee Jerk. Normal Ankle Jerk Vertebral body tenderness Carter Test positive Lumbar facet Loading Test: positive Right / positive Left over L4-L5-, L5-S1 Range of motion of the lumbar spine Flexion 30 degrees, extension 10 degrees Straight Leg Raise test: Left/ Right positive at 35 degrees Efrain test: positive right / positive left. Severe tenderness over the Sacroiliac joint on the Right / Left sides Gaenslen test: positive bilaterally Seated flexion test: positive bilaterally. Sacral spine : Severe tenderness over the Sacroiliac joint: right side / left side Range of motion: Flexion of the lumbar spine <60 degrees Range of motion: Extension of the lumbar spine <20 degrees Gaenslen's Test positive Daniel's Test positive Efrain test: positive right side / left side Thigh Thrust Test Sacral Thrust Test Imaging: MRI noncontrast of the lumbar spine from 04/17/23 reviewed Assessment/ Plan : Lumbar DDD Recommendation of BL RFA L4-L5, L5-S1. Exhibited optimal pain relief w prior MBB procedures. Risks, benefits of procedure discussed and patient verbalized understanding. Admits to anti- coagulant use or medical history of diabetes. Protocol for discontinuation/ continuation of medications ivania procedure discussed. Minimal anesthesia provided, if clinically indicated, consisting of Versed and Fentanyl. All questions answered. I have spent greater than 30 minutes on patient care today. Dr Owen was available by phone for the evaluation of this patient. The time was used to review the medical records including relevant urine studies and Prescription history (MAPs), review of the available imaging, evaluation and examination of the patient, coordination of care with the medical staff and if applicable referring physicians, as well as creation of the medical record PQRS Narrative: Hx Alcohol Use (MH) No Home Medications: Ambulatory Orders Aspirin EC [Ecotrin Low Dose] 81 mg PO QAM 12/17/21 Atorvastatin [Lipitor] 40 mg PO DAILY 12/17/21 Brimonidine Tartrate [Alphagan P 0.15% Ophth Soln] 1 drops BOTH EYES DAILY 12/17/21 Fluocinonide [Fluocinonide 0.1%] 1 applic TOPICAL BID 12/17/21 Losartan/Hydrochlorothiazide [Losartan-Hctz 50-12.5 mg Tab] 1 tab PO DAILY 12/17/21 Metoprolol Tartrate [Lopressor] 25 mg PO DAILY 12/17/21 Spironolactone 12.5 mg PO DAILY 12/17/21 metHOTREXate sodium 15 mg PO MO 12/17/21 HYDROcodone/APAP 7.5-325MG [[place] 7.5-325] 1 tab PO Q4H PRN 3 Days #18 tab 12/19/21 Benralizumab [Fasenra] 1 dose SQ Q56D 06/23/23 Famotidine [Pepcid] 10 mg PO DAILY 06/23/23 Folic Acid 1 mg PO DAILY 06/23/23 Furosemide [Lasix] 20 mg PO BID 06/23/23 metFORMIN HCL [Glucophage] 500 mg PO BID 06/23/23 Ibuprofen [Advil] 200 mg PO Q8HR PRN 08/10/23 Controlled Substance Measures - Controlled Substance Measures Is patient prescribed a controlled substance at discharge?: No
[2023-11-20 14:37] VITALS: BP 133/77; PULSE 72; RESP 15; TEMP 98.4
== END ==
LOC: PNWHC3 08:12
PROVIDERS: ATTEND Specialist
DX: M51.37 Other intervertebral disc degeneration, lumbosacral region (principal); Z79.82 Long term (current) use of aspirin
CPT/HCPCS: 99211

== ENCOUNTER 2023-12-08 10:54 | Day surgery (SDC) | payer MEDICARE ==
[2023-12-08] MEDS: LACTATED RINGERS 1,000 ML IV ONE (11:21)
[2023-12-08] MEDS ORDERED: LACTATED RINGERS 1,000 ML IV SCH (11:22)
[2023-12-08 11:32] VITALS: TEMP 97.7
[2023-12-08 11:43] LABS: Glucose,Whole Blood 118 mg/dL (70-110)
[2023-12-08] MEDS ORDERED: MIDAZOLAM 2 MG/2 ML VIAL ONE (11:47)
[2023-12-08] MEDS ORDERED: fentaNYL (PF) 50 MCG/ML 2 ML AMP ONE (11:47)
[2023-12-08] MEDS ORDERED: ROPIVACAINE 5MG/ML 20ML VIAL ONE (11:47)
--- NOTE | 2023-12-08 12:29 | FL ---
Fluoroscopy History: Ean Lumbar Rad Freq Ean Lumbar Rad Freq 1.15min fluoro time .[id number] DAP
[2023-12-08] MEDS: IV FLUID CONTINUATION 1,000 ML IV ONE (12:32)
--- NOTE | 2023-12-08 12:36 | P.PCN ---
Description of Procedure: Preprocedure diagnosis. 1. Lumbar spondylosis with facet joint arthropathy without myelopathy. 2. Lumbar degenerative disc disease. Procedure diagnosis. 1. Lumbar spondylosis with facet joint arthropathy without myelopathy. Space 2. Lumbar degenerative disc disease. Procedure.Bilateral radiofrequency thermocoagulation L3, L4 and L5 medial branch, with fluoroscopic guidance (fluoroscopy images are available in the radiology department) (to Denervate the facet joint at bilateral L4- 5 and L5-S1 levels) Anesthesia. Monitored anesthesia care as per anesthesia department, moderate sedation with intravenous Versed 2 mg and fentanyl 100 g and local infiltration with ropivacaine 0.5%. Continuous verbal communication was maintained with patient. EBL minimal. Procedure indication. The patient with low back pain secondary to lumbar facet arthropathy who he had more than 50% relief of her pain with previous diagnostic lumbar medial branch block with local anesthetics.The patient was seen and identified in the preoperative area. Risks: Benefits, complications, including but not limited to risk of infection, bleeding, ALLERGIC reaction to the medications and no complete pain relief and alternatives were discussed with the patient, the patient admitted to proceed with the procedure and signed the consent. Procedure description/technique. Patient was taken to the OR and timeout was completed. The patient was placed in prone position on the procedure table. The lumbar area was prepped and draped in the usual sterile fashion. After injecting 5 ml of 1% Lidocaine subcutaneously,using AP and then oblique, lateral view of fluoroscopy, 18-gauge 100 mm radiofrequency cannula with a 10 mm active tip was advanced and guided by fluoroscopy at the junction of supirior articular process with RIGHT ala of the sacrum, transverse process of L4&L5. Each site then underwent positive sensory testing with 50 Hz and 0-1 V and negative motor testing at 2.5 Hz and 0-3 V with local stimulation but no radicular symptoms down the leg. Thereafter each sites underwent radiofrequency thermocoagulation at 80C for 90 seconds after injecting 1 mL of preservative- free 0.5% ropivacaine. Repeat radiofrequency ablation was done at each points after rotating the needle 180 with same setting. This same procedure was repeated twice on the LEFT side at the junction of superior articular process with ala of sacrum,transverse process of L4, L5 with the same settings after positive sensory,negative motor stimulation and infiltration of 1.0 ml 5% Ropivacaine at each site . RF needles were taken out. At the end of the procedure the skin was cleansed and Band-Aids were applied. Disposition patient tolerated the procedure well. No complication. She was placed in supine position and transferred to the recovery area in stable condition for observation and was discharged home from recovery room after meeti ng discharge criteria. Discharge instructions given to the patient by the staff. The patient were examined prior to discharge the patient will schedule a follow-up in the clinic in 2-4 weeks.
[2023-12-08 12:54] VITALS: BP 117/77; PULSE 61; RESP 18
== END 2023-12-08 13:02 | disposition home or self-care (01) ==
LOC: ORPAIN 10:54
PROVIDERS: ATTEND Pain Medicine Interventional Pain Medicine
DX: M47.816 Spondylosis without myelopathy or radiculopathy, lumbar region (principal); M51.36 Other intervertebral disc degeneration, lumbar region; E11.9 Type 2 diabetes mellitus without complications; Z79.82 Long term (current) use of aspirin
CPT/HCPCS: 64635; 64636 ×2; 99152; J2250; J3010; J2795; 99153

== ENCOUNTER → 2023-12-28 | Outpatient (CLI) | payer MEDICARE ==
[2023-12-28 08:42] VITALS: BP 132/72; PULSE 72; RESP 15; TEMP 98.5
--- NOTE | 2023-12-28 15:02 | P.PAINPG ---
PQRS Measure Charge Sheet Comment: HISTORY OF PRESENT ILLNESS: A 72 yr old male w at side presents today w severe and chronic LBP x 2 yrs secondary to DDD, spondylosis and facet arthropathy without myelopathy for evaluation s/p BL RFA L3-L5. Pt states he experienced 0% pain relief s/p procedure. Pt states pain level is provoked at 8/10 in intensity, constant, localized in the lower lumbar spine, predominantly axial, achy in character w occasional shooting pain towards the R hip and BLEs. Pain is provoked by standing/ walking/laying in 1 position for periods > 15 min. Pain is alleviated by PT integrated w massage x 6 wks which ended in May 2023, chiropractic treatments semi monthly in January 2023, physician guided home stretching regimen since May 2023, heat, medications, topical, repositioning and rest. Oswestry axial pain score at 20. Interventional procedures include LYNN L4-L5 #1, L5-S1 x1, BL RFA L3-L5 Medications include [place] 10/325mg, Neurontin, Ibu REVIEW OF ORGAN SYSTEMS: CONSTITUTIONAL: No fevers or chills. No recent weight loss. NEUROLOGICAL: + numbness and tingling along the distal extremities. No seizure disorders or headaches. MUSCULOSKELETAL: + pain PSYCHIATRIC: Denies current depression or suicidal thoughts. Physical Examinations : Constitutional : Cooperative , not in acute distress . Neurologic : Cranial nerve II to XII intact. No focal neurological deficits. Psychiatric : alert & oriented x 3. Matching mood & appropriate affect. Judgment & insight intact. Musculoskeletal : Cervical Spine Motor strength in the deltoid and biceps: Normal right side. Normal Left side Motor strength biceps and the wrist extensors: Normal right side . Normal left side Motor strength in the triceps muscle: Normal right side. Normal left side Deep tendon reflexes: Normal at the biceps. Normal at Brachioradialis. Normal at triceps Vertebral body tenderness to deep palpation over Cervical facet loading test: positive bilaterally Spurling test: positive bilaterally Neck distraction test: positive bilaterally Lucy sign: positive bilaterally Lumbar spine Motor strength lower extremities ,thigh and legs 5/5 Right side , 5/5 Left side Deep tendon reflexes : Normal Knee Jerk. Normal Ankle Jerk Vertebral body tenderness Carter Test positive Lumbar facet Loading Test: positive Right / positive Left over L4-L5-, L5-S1 Range of motion of the lumbar spine Flexion 30 degrees, extension 10 degrees Straight Leg Raise test: Left/ Right positive at 35 degrees Efrain test: positive right / positive left. Severe tenderness over the Sacroiliac joint on the Right / Left sides Gaenslen test: positive bilaterally Seated flexion test: positive bilaterally. Sacral spine : Severe tenderness over the Sacroiliac joint: right side / left side Range of motion: Flexion of the lumbar spine <60 degrees Range of motion: Extension of the lumbar spine <20 degrees Gaenslen's Test positive Daniel's Test positive Efrain test: positive right side / l eft side Thigh Thrust Test Sacral Thrust Test Imaging: MRI noncontrast of the lumbar spine from 04/17/23 reviewed Assessment/ Plan : Lumbar DDD Recommendation of followup w their referral to Dr Garcia (neurosurgery). January RTC on an as needed basis. All questions answered. I have spent greater than 30 minutes on patient care today. Dr Owen was available by phone for the evaluation of this patient. The time was used to review the medical records including relevant urine studies and Prescription history (MAPs), review of the available imaging, evaluation and examination of the patient, coordination of care with the medical staff and if applicable referring physicians, as well as creation of the medical record PQRS Narrative: Hx Alcohol Use (MH) No Home Medications: Ambulatory Orders Aspirin EC [Ecotrin Low Dose] 81 mg PO QAM 12/17/21 Atorvastatin [Lipitor] 40 mg PO DAILY 12/17/21 Brimonidine Tartrate [Alphagan P 0.15% Ophth Soln] 1 drops BOTH EYES DAILY PRN 12/17/21 Fluocinonide [Fluocinonide 0.1%] 1 applic TOPICAL BID 12/17/21 Losartan/Hydrochlorothiazide [Losartan-Hctz 50-12.5 mg Tab] 1 tab PO DAILY 12/17/21 Metoprolol Tartrate [Lopressor] 12.5 mg PO BID 12/17/21 Spironolactone 12.5 mg PO DAILY 12/17/21 metHOTREXate sodium 15 mg PO MO 12/17/21 HYDROcodone/APAP 7.5-325MG [[place] 7.5-325] 1 tab PO Q4H PRN 3 Days #18 tab 12/19/21 Benralizumab [Fasenra] 1 dose SQ Q56D 06/23/23 Famotidine [Pepcid] 10 mg PO DAILY 06/23/23 Folic Acid 1 mg PO DAILY 06/23/23 Furosemide [Lasix] 40 mg PO DAILY 06/23/23 metFORMIN HCL [Glucophage] 500 mg PO BID 06/23/23 Ibuprofen [Advil] 800 mg PO Q8HR PRN 08/10/23 Clotrimazole/Betamethasone Dip [Clotrimazole-Betamethasone Lot] 1 applic TOPICAL DAILY PRN 12/08/23 Docusate [Colace] 100 mg PO DAILY 12/08/23 Econazole 1% Cream [Spectazole] 1 cream TOPICAL DAILY PRN 12/08/23 Pantoprazole Sodium 40 mg PO DAILY 12/08/23 allopurinoL 300 mg PO DAILY 12/08/23 predniSONE 5 mg PO DAILY 12/08/23 Controlled Substance Measures - Controlled Substance Measures Is patient prescribed a controlled substance at discharge?: No
== END ==
LOC: PNWHC3 08:03
PROVIDERS: ATTEND Specialist
DX: M51.37 Other intervertebral disc degeneration, lumbosacral region (principal); M47.817 Spondylosis without myelopathy or radiculopathy, lumbosacral region; G89.29 Other chronic pain
CPT/HCPCS: 99211

== ENCOUNTER → 2024-01-16 | Outpatient (CLI) | payer MEDICARE ==
--- NOTE | 2024-01-16 10:47 | CT ---
EXAMINATION TYPE: CT abdomen wo con DATE OF EXAM: 01/16/2024 COMPARISON: 12/17/2021 HISTORY: chest pain back pain abd pain CT DLP: 1773.4 mGycm Examination of the solid and hollow viscera is limited given the lack of contrast. FINDINGS: LUNG BASES: No evidence for nodule. No evidence for infiltrate. LIVER/GB: The gallbladder is surgically absent. Underlying hepatic steatosis and mild hepatomegaly. N o space-occupying hepatic lesion. PANCREAS: No pancreatic mass identified. No inflammatory process seen. SPLEEN: No evidence for splenomegaly. No intrasplenic lesions seen. ADRENALS: No adrenal nodules identified. No evidence for thickening. KIDNEYS: No evidence for renal mass. No nephrolithiasis. No hydronephrosis. BOWEL: Visualized bowel loops reveals normal caliber. Lymph nodes: No evidence for adenopathy greater than 1 cm. Abdominal aorta: Atheromatous changes seen. At the level of the aortic hiatus there is a mild aneurys m noted measuring 3.2 cm AP dimension. The remainder of the abdominal aorta is of normal caliber. Other: No significant abnormality. IMPRESSION: 1. Mild abdominal aortic aneurysm at the level of the aortic hiatus. 2. Hepatomegaly with underlying hepatic steatosis.
== END | disposition home or self-care (01) ==
LOC: RADCTMAIN 09:27
PROVIDERS: ATTEND Internal Medicine Interventional Cardiology
DX: I71.40 Abdominal aortic aneurysm, without rupture, unspecified (principal); K76.0 Fatty (change of) liver, not elsewhere classified; R16.0 Hepatomegaly, not elsewhere classified
CPT/HCPCS: 74150

== ENCOUNTER → 2024-01-25 | Outpatient (CLI) | payer MEDICARE ==
[2024-01-25 14:39] LABS: HCT 42.1 % (39.6-50.0); HGB 13.2 g/dL (13.0-17.0); MCH 30.1 pg (27.0-32.0); MCHC 31.4 g/dL (32.0-37.0); MCV 95.9 FL (80.0-97.0); Mean Platelet Volume 11.8 FL (9.5-12.2); NRBC Per 100 WBC 0 X 10*3/uL (0.00-0.01); Platelet Count 261 X 10*3/uL (140-440); RBC 4.39 X 10*6/uL (4.40-5.60); WBC 7.34 X 10*3/uL (4.50-10.00)
[2024-01-25 15:15] LABS: ALT 100 U/L (10-49); AST 86 U/L (14-35); Albumin 4.3 g/dL (3.8-4.9); Albumin/Globulin Ratio 1.65 Ratio (1.60-3.17); Alkaline Phosphatase 65 U/L (41-126); BUN/Creat Ratio 11.93 Ratio (12.00-20.00); Blood Urea Nitrogen 17.9 mg/dL (9.0-27.0); Carbon Dioxide 21.7 mmol/L (21.6-31.8); Chloride 103 mmol/L (96-109); Globulin 2.6 g/dL (1.6-3.3); Glucose 135 mg/dL (70-110); Sodium 142 mmol/L (135-145); Total Bilirubin 0.6 mg/dL (0.3-1.2); Total Protein 6.9 g/dL (6.2-8.2)
[2024-01-26 15:33] LABS: Amylase 23 U/L (23-121); Lipase 13 U/L (14-60)
== END | disposition home or self-care (01) ==
LOC: LABWHC1 10:13
PROVIDERS: ATTEND Internal Medicine Interventional Cardiology
DX: I10 Essential (primary) hypertension (principal); I25.10 Atherosclerotic heart disease of native coronary artery without angina pectoris; E11.9 Type 2 diabetes mellitus without complications
CPT/HCPCS: 36415; 80053; 82150; 83690; 85027

== ENCOUNTER → 2024-01-26 | Outpatient (CLI) | payer MEDICARE ==
--- NOTE | 2024-01-26 15:54 | XR ---
EXAMINATION TYPE: XR thoracic spine complete DATE OF EXAM: 01/26/2024 COMPARISON: None HISTORY: Back pain TECHNIQUE: 4 view thoracic spine FINDINGS: Spondylosis is present. There are 12 thoracic type vertebral bodies. Pedicles are intact. B jose heights are preserved. Disc heights are preserved. IMPRESSION: 1. Mild spondylosis within the thoracic spine
--- NOTE | 2024-01-26 15:57 | XR ---
EXAMINATION TYPE: XR lumbar spine 2 or 3V DATE OF EXAM: 01/26/2024 COMPARISON: None HISTORY: Low back pain TECHNIQUE: 3 view lumbar spine FINDINGS: There are 5 lumbar-type T12 bodies. Pedicles are intact. Spondylosis of L2 is evident. Disc heights are preserved. Vertebral body heights are preserved. Limbus vertebra of L5 is noted. IMPRESSION: 1. No acute osseous abnormality lumbar spine
== END | disposition home or self-care (01) ==
LOC: RADXRMAIN 13:04
PROVIDERS: ATTEND Internal Medicine Geriatric Medicine
DX: M47.814 Spondylosis without myelopathy or radiculopathy, thoracic region (principal); M54.50 Low back pain, unspecified
CPT/HCPCS: 72072; 72100

== ENCOUNTER → 2024-02-02 | Day surgery (SDC) | payer MEDICARE ==
[~2024-02-02] MED LIST changes: +ALPRAZolam 0.25 MG TAB PO PRN; +ALPRAZolam 0.5 MG TAB PO PRN; +ASPIRIN 81 MG ONE; +HEPARIN SODIUM 1,000 UN/ML (10ML VL) ONE; +HYDROcodone/APAP 7.5-325MG 1 EACH TAB ONE; -LACTATED RINGERS 1,000 ML IV SCH; +NITROGLYCERIN SL TABS 0.4 MG TAB SUBLINGUAL PRN; +SODIUM CHLORIDE 0.9% 1,000 ML in EMPTY BAG 1 BAG IV SCH; +VERAPAMIL 2.5 MG/ML 2 ML AMP ONE; +fentaNYL (PF) 50 MCG/ML 2 ML AMP ONE
[2024-02-02] MEDS: SODIUM CHLORIDE 0.9% 1,000 ML IV SCH (07:03)
[2024-02-02 07:08] LABS: Glucose,Whole Blood 122 mg/dL (70-110)
[2024-02-02] MEDS: HYDROcodone/APAP 7.5-325MG 1 EACH TAB PO PRN (07:17)
[2024-02-02] MEDS: ASPIRIN 325 MG TAB PO STA (07:18)
[2024-02-02 07:59] VITALS: TEMP 98.3
--- NOTE | 2024-02-02 09:10 | CA ---
Transthoracic Echo Report Name: Kar Moncada Age: 73 Gender: M : 1950 Exam Date: 02/02/2024 08:05 Exam Location: [place] [facility] Ht (in): 68 Wt (lb): 278 Ordering Physician: Linda Monique MD Attending/Referring Phys: Putty Worker Milena Hou RDCS Procedure CPT: Indications: assess valves/function Cardiac Hx: Technical Quality: Technically difficult study Contrast 1: Definity Total Dose (mL): 2 Contrast 2: Total Dose (mL): MEASUREMENTS (Male / Female) Normal Values 2D ECHO LV Diastolic Diameter PLAX 4.5 cm 4.2 - 5.9 / 3.9 - 5.3 cm LV Systolic Diameter PLAX 3.8 cm IVS Diastolic Thickness 1.3 cm 0.6 - 1.0 / 0.6 - 0.9 cm LVPW Diastolic Thickness 1.5 cm 0.6 - 1.0 / 0.6 - 0.9 cm LV Relative Wall Thickness 0.6 RV Internal Dim ED PLAX 3.9 cm LVOT Diameter 2.0 cm LA Volume 116.8 cm??? 18 - 58 / 22 - 52 cm??? LA Volume Index 46.3 cm???/m??? 16 - 28 cm???/m??? M-MODE LV Diastolic Diameter MM 6.5 cm 4.2 - 5.9 / 3.9 - 5.3 cm LV Systolic Diameter MM 4.1 cm LV Cardiac Index MM Teich 3341.4 cm???/min???m??? IVS Diastolic Thickness MM 1.2 cm 0.6 - 1.0 / 0.6 - 0.9 cm LVPW Diastolic Thickness MM 1.6 cm 0.6 - 1.0 / 0.6 - 0.9 cm LV Relative Wall Thickness MM 0.4 0.24 - 0.42 / 0.22 - 0.42 LV Mass Index MM 179.8 g/m??? 49 - 115 / 43 - 95 g/m??? Aortic Root Diameter MM 4.0 cm LA Systolic Diameter MM 4.5 cm LA Ao Ratio MM 1.1 DOPPLER AV Peak Velocity 149.0 cm/s AV Peak Gradient 8.9 mmHg AV Mean Velocity 88.0 cm/s AV Mean Gradient 3.8 mmHg AV Velocity Time Integral 26.1 cm LVOT Peak Velocity 96.3 cm/s LVOT Peak Gradient 3.7 mmHg LVOT Velocity Time Integral 21.2 cm LVOT Stroke Volume 67.2 cm??? LVOT Stroke Volume Index 28.6 ml/m??? LVOT Cardiac Index 1598.6 cm???/min???m??? AV Area Cont Eq vti 2.6 cm??? AV Area Cont Eq pk 2.1 cm??? MV Area PHT 3.5 cm??? Mitral E Point Velocity 68.5 cm/s Mitral A Point Velocity 78.2 cm/s Mitral E to A Ratio 0.9 MV Deceleration Time 219.6 ms MV E' Velocity 6.1 cm/s Mitral E to MV E' Ratio 11.2 TR Peak Velocity 260.4 cm/s TR Peak Gradient 27.1 mmHg Right Ventricular Systolic Press 32.1 mmHg FINDINGS Left Ventricle Severely increased left ventricular mass. Mild concentric left ventricular hypertrophy. Mildly reduced global left ventricular systolic function. Left ventricular ejection fraction is estimated at 45-50 %. Grade 2 diastolic dysfunction. There is inferoseptal and basal mild hypokinesia noted Right Ventricle Right ventricular dilatation. Right ventricular systolic pressure within normal limits. Right Atrium Right atrium not well visualized. Left Atrium Moderately increased left atrial volume. Moderately increased left atrial area. Mitral Valve Structurally normal mitral valve. No mitral stenosis, regurgitation or prolapse. Aortic Valve No aortic valve stenosis or regurgitation. Aortic valve sclerosis. Tricuspid Valve Structurally normal tricuspid valve. Mild tricuspid regurgitation. Pulmonic Valve Pulmonic valve not well visualized. Pericardium No pericardial effusion. Aorta Normal size aortic root and proximal ascending aorta. CONCLUSIONS Technically difficult study. LV size is normal there is moderate concentric LVH with inferoseptal basal hypokinesia. Right ventricle is enlarged but RV pressures are in the normal range. Mitral annular calcification enlarged atria no significant mitral or tricuspid regurgitation. No pericardial effusion. Previewed by: Dr. Linda Monique MD (Electronically Signed) Final Date: 02 Feb 2024 09:09
[2024-02-02] MEDS: MIDAZOLAM 2 MG/2 ML VIAL IVP ONE ×3 (10:43→10:52)
[2024-02-02] MEDS: LIDOCAINE 1% INJ 10MG/ML (20 ML MDV) SQ ONE (10:48)
[2024-02-02] MEDS: VERAPAMIL 2.5 MG/ML 4 ML VIAL INTRAARTER ONE (10:49)
[2024-02-02] MEDS: HEPARIN SODIUM 1,000 UN/ML (10ML VL) IVP ONE (10:57)
[2024-02-02] MEDS: IOPAMIDOL-370 100ML BTL INJ ONE (11:14)
--- NOTE | 2024-02-02 11:22 | P.CARDCATH ---
Date of Procedure: 02/02/24 Description of Procedure: History: Patient was referred for cardiac catheterization to evaluate for CAD. This patient has history of known CAD with a total occlusion of RCA and subtotal occlusion of mid LAD without significant disease and circumflex based on a cardiac cath in 2016. He has diabetes obesity obstructive sleep apnea rheumatoid arthritis and hypertension. He has obstructive sleep apnea wears his CPAP regularly. Because of symptoms strongly suggestive of angina he was advised to cardiac cath after due discussion regarding risks benefits and options he was brought in for the procedure with optimal hydration. I requested Dr. Mckeon to assist me in the procedure which we performed together. Moderate conscious sedation time was 13 minutes. Patient was administered Versed oxygen saturation hemodynamics and EKG were monitored closely Procedure: Left heart catheterization and coronary angiography Performed by: Dr. Jake Mckeon Assisted by: Dr. SUSAN Monique Procedure Details: The risks, benefits, complications, treatment options, and expected outcomes were discussed with the patient. The patient and/or family concurred with the proposed plan, giving informed consent. Patient was brought to the finishing lab technician after IV hydration was begun and oral premedication was given. Patient was further sedated with midazolam. Patient was prepped and draped in the usual manner. Under strict aseptic precautions and local anesthesia with the help of ultrasound, a 6 [place] intro ducer was placed in the right radial artery. Using a JL 3/5 and a JR 4/0 catheters I performed coronary angiography and the pigtail catheter was used to check LV pressures and LV gram was not performed. After the procedure was completed the sheaths and catheters were all removed. Hemostasis was achieved with TR band. Saturation in the fingers of the right hand was about 97%. Moderate conscious sedation time was 13 minutes. Patient's oxygen saturation hemodynamics and EKG were monitored closely. Findings: Hemodynamics: The left ventricle end-diastolic pressure was 10 mmHg without any gradient across aortic valve Left Main: No significant disease, mild calcification distally, trifurcates into LAD circumflex and ramus intermedius LAD: This vessel is totally occluded in the midportion after 2 diagonal branches and has a subtotal/total occlusion but feels a late with antegrade injection of the left coronary artery. Distal segment as well as the segment of LAD just beyond the total occlusion is diffusely diseased perhaps not easily graftable. 2 diagonal branches have 30 to 40% narrowing and supplied a fair amount of myocardium and has no significant disease in the mid and distal portion. CIRC: The ramus intermedius is a fair caliber vessel supplies a fair amount of myocardium has minor irregularities and ostial disease of about 30 to 40%. The circumflex itself runs in the AV groove and gives off at least a 2 good-sized distal branches. The ostium of the circumflex is heavily calcified as eccentric 80 to 90% lesion which represents a progression of disease. Circumflex also provides with its left atrial branch and distal branches and reach network of collaterals that opacifies the distal branches of RCA and also to some extent the main trunk of RCA. RCA: This is a dominant vessel which is totally occluded in the midportion without much antegrade flow but there is a rich network of collaterals coming from the circumflex system that opacifies the distal branches of RCA LV: Not performed Closure Device: TR band Complications: None Estimated Blood Loss: Minimal Impression: This patient has normal filling pressures and no gradient. A right dominant system with total occlusion of mid RCA as well as mid LAD with collaterals ipsilateral for LAD and contralateral from circumflex to the RCA with 80% ostial circumflex lesion that is heavily calcified Pre Procedure Diagnosis: CAD triple-vessel Final Post Procedure Diagnosis: CAD triple-vessel Recommendation: Based on the findings and the progression of disease in RCA, I would recommend aortocoronary bypass surgery especially if LAD is graftable. Grafts will be placed to the distal LAD, the branches of circumflex and also distal RCA. If surgery is thought to be a high risk then we can attempt percut aneous intervention of circumflex ostium which is heavily calcified and also involves the distal left main to some extent. However surgery would be the first option. Discussed this with the patient and family. For now we will optimize medical therapy and patient will be hydrated prior to discharge. Complications: None; patient tolerated the procedure well. Disposition: ESU - hemodynamically stable. Condition: Stable Discharge Disposition: Discharge patient home later on today.
[2024-02-02 13:20] VITALS: RESP 16
--- NOTE | 2024-02-02 13:37 | XR ---
EXAMINATION TYPE: XR chest 2V DATE OF EXAM: 02/02/2024 COMPARISON: 12/18/2021 INDICATION: Pre surgical TECHNIQUE: Frontal and lateral views of the chest are obtained. FINDINGS: The heart size is normal. The pulmonary vasculature is normal. The lungs are clear. IMPRESSION: 1. No acute pulmonary process.
[2024-02-02 13:52] LABS: Appearance,Urine Clear (Clear); Bilirubin,Urine Negative (Negative); Blood,Urine Negative (Negative); Color,Urine Colorless; Glucose,Urine (UA) Negative (Negative); Ketones,Urine Negative (Negative); Leukocyte Esterase,Urine Negative (Negative); Nitrite,Urine Negative (Negative); Protein,Urine Negative (Negative); Specific Gravity,Urine 1.036 (1.001-1.035); Urobilinogen,Urine <2.0 mg/dL (<2.0)
[2024-02-02 14:13] VITALS: BP 121/68; PULSE 60
--- NOTE | 2024-02-02 14:57 | US ---
EXAMINATION TYPE: Pre-Operative Non-Invasive Evaluation of the hand for Potential Radial Artery Negrito bynum, Measurements only DATE OF EXAM: 02/02/2024 2:21 PM CLINICAL INDICATION: Male, 73 years old with history of PreOp Cardiac Surgery; Preop SIDE PERFORMED: Left TECHNIQUE: Radial artery is measured utilizing real time linear array sonography. Dominant hand: Right Duplex Findings: Radial Artery: Color flow seen Measurements in mm, transverse view: Left Radial: Proximal: 3.4 x 3.1 mm Mid: 3.2 x 2.5 mm Distal: 2.9 x 2.1 mm IMPRESSION: 1. Bilateral Radial artery measurements listed above. 2. Performing surgeon to determine viability as conduit.
[2024-02-02 15:25] LABS: HCT 38.4 % (39.0-53.0); HGB 12.1 gm/dL (13.0-17.5); MCH 30.3 pg (25.0-35.0); MCHC 31.5 g/dL (31.0-37.0); MCV 96.4 fL (80.0-100.0); Mean Platelet Volume 9.5; Platelet Count 187 k/uL (150-450); RBC 3.98 m/uL (4.30-5.90); RDW 13.9 % (11.5-15.5)
[2024-02-02 15:35] LABS: INR 0.9 (<1.2); Partial Thromboplastin Time 25.2 sec (22.0-30.0); Prothrombin Time 10.3 sec (10.0-12.5)
[2024-02-02 15:36] LABS: ALT 82 U/L (4-49); AST 76 U/L (17-59); African American GFR (CKD) 73 (>60 ml/min/1.73 sqM); Albumin 3.7 g/dL (3.5-5.0); Alkaline Phosphatase 66 U/L (38-126); Anion Gap 8 mmol/L; Blood Urea Nitrogen 19 mg/dL (9-20); Calcium 8.7 mg/dL (8.4-10.2); Carbon Dioxide 23 mmol/L (22-30); Chloride 107 mmol/L (98-107); Glucose 147 mg/dL (74-99); Magnesium 1.9 mg/dL (1.6-2.3); Non-African American GFR(CKD) 64 (>60 ml/min/1.73 sqM); Potassium 3.7 mmol/L (3.5-5.1); Sodium 138 mmol/L (137-145); Total Bilirubin 0.5 mg/dL (0.2-1.3); Total Protein 6.3 g/dL (6.3-8.2)
--- NOTE | 2024-02-02 16:21 | P.GSCN ---
History of Present Illness Consult date: 02/02/24 Reason for Consult: Multivessel coronary artery disease Requesting physician: Linda Monique History of present illness: This is a 73-year-old gentleman who follows on an outpatient basis with Dr. Júnior Paniagua for his primary care and with Dr. SUSAN Monique for his cardiology care. He has a past medical history significant for coronary artery disease, hypertension, hyperlipidemia, remote history of SVT status post adenosine and cardioversion around 20 years ago, chronic kidney disease stage III, obstructive sleep apnea with home CPAP use, asthma, diabetes mellitus type 2, morbid obesity with a BMI of 42.9 kg/m, psoriasis, and is a lifetime non-smoker. Recently, the patient has been experiencing episodes of progressive shortness of breath with activity, episodes of nausea chest pain and diaphoresis. He denies any recent fever, chills, emesis, constipation, hemoptysis, hematemesis, lightheadedness, headache, cough, presyncope or syncope. Subsequently, he presented to Dr. Monique's office with the above-mentioned symptoms, he was recommended to undergo coronary angiography and optimize medical therapy. Med ications were adjusted by Dr. Monique with the addition of nitrates. The heart catheterization was completed today February 02, 2024 which revealed a right dominant system with total occlusion of the mid right coronary artery as well as the mid left anterior descending coronary artery with collaterals ipsilateral from the LAD and contralateral from the circumflex coronary artery to the right coronary artery with an 80% ostial circumflex lesion that was found to be heavily calcified. A transthoracic 2D echocardiogram was also completed which demonstrated severely increased left ventricular mass, mildly reduced global left ventricular systolic function with the left ventricular ejection fraction of 45 to 50%, grade 2 diastolic dysfunction, no mitral valve stenosis, regurgitation or prolapse, no aortic valve stenosis or regurgitation, mild tricuspid valve regurgitation, no pericardial effusion and a normal size aortic root and proximal ascending aorta. Subsequently, due to the findings on the cardiac catheterization and progression of his disease he was referred to Dr. Cristino Samson from cardiothoracic surgery for further evaluation and treatment recommendations including myocardial revascularization surgery. Review of Systems A review of systems was completed and was negative except as mentioned in the HPI. 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, NIDDM type II, CKD stage III, JOSÉ LUIS with cpap History of Any Multi-Drug Resistant Organisms: None Reported Past Surgical History: Cholecystectomy, Heart Catheterization, Hernia Repair, Joint Replacement Additional Past Surgical History / Comment(s): Bilateral eye cataract removed, bilateral total knees, total R hip, PAIN CLINIC PROCEDURE, COLONOSCOPY, EGD Past Anesthesia/Blood Transfusion Reactions: No Reported Reaction Past Psychological History: No Psychological Hx Reported Smoking Status: Never smoker Past Alcohol Use History: Rare Past Drug Use History: None Reported - Past Family History Father Family Medical History: CVA/TIA, Diabetes Mellitus Additional Family Medical History / Comment(s): Massive cva at 78yrs Mother Additional Family Medical History / Comment(s): Chronic kidney disease, coronary artery disease, history of myocardial infarction Medications and Allergies Home Medications Medication Instructions Recorded Confirmed Type Aspirin EC [Ecotrin Low Dose] 81 mg PO QAM 12/17/21 02/02/24 History Atorvastatin [Lipitor] 40 mg PO HS 12/17/21 02/02/24 History Spironolactone 12.5 mg PO QAM 12/17/21 02/02/24 History metHOTREXate sodium 20 mg PO MO 12/17/21 02/02/24 History HYDROcodone/APAP 7.5-325MG [[place] 1 tab PO Q4H PRN 3 Days #18 tab 12/19/21 02/02/24 Rx 7.5-325] Benralizumab [Fasenra] 1 dose SQ Q56D 06/23/23 01/31/24 History Folic Acid 1 mg PO SUTUWETHFRSA 06/23/23 02/02/24 History Furosemide [Lasix] 40 mg PO QAM 06/23/23 02/02/24 History metFORMIN HCL [Glucophage] 500 mg PO BID 06/23/23 02/02/24 History Clotrimazole/Betamethasone Dip 1 applic TOPICAL DAILY PRN 12/08/23 01/31/24 History [Clotrimazole-Betamethasone Lot] Docusate [Colace] 100 mg PO DAILY 12/08/23 02/02/24 History Econazole 1% Cream [Spectazole] 1 cream TOPICAL DAILY PRN 12/08/23 01/31/24 History Pantoprazole Sodium 40 mg PO BID 12/08/23 02/02/24 History Cholecalciferol (Vitamin D3) 50 mcg PO QAM 01/31/24 02/02/24 History [Vitamin D3 (50 Mcg = 2000 Iu)] Gabapentin 300 mg PO QAM 01/31/24 02/02/24 History Gabapentin 600 mg PO HS 01/31/24 02/02/24 History Isosorbide Mononitrate ER [Imdur] 30 mg PO QAM 01/31/24 02/02/24 History Losartan [Cozaar] 50 mg PO QAM 01/31/24 02/02/24 History Magnesium 400 mg PO QAM 01/31/24 02/02/24 History Allergies Allergy/AdvReac Type Severity Reaction Status Date / Time empagliflozin Allergy Nausea & Verified 01/31/24 11:39 [From Jardiance] Vomiting semaglutide [From Ozempic] Allergy Nausea & Verified 01/31/24 11:39 Vomiting Surgical - Exam Vital Signs Temp Pulse Resp BP Pulse Ox 98.3 F 87 18 144/70 97 02/02/24 07:32 02/02/24 07:32 02/02/24 07:32 02/02/24 07:32 02/02/24 07:32 - General well developed, well nourished, no distress, no pain, chronically ill, obese - Eyes PERRL, normal ocular movement, no pale, no icteric - ENT normal pinna, normal nares, normal mucosa, no hearing loss, no congestion - Neck Neck is supple, no lymphadenopathy. no masses, no bruits, trachea midline, no venous distension - Respiratory Lungs essentially clear throughout, diminished to his bilateral bases. Respirations are symmetrical and nonlabored. No wheezes, rhonchi or crackles. - Cardiovascular Regular rhythm and rate. S1 and S2 present, negative for S3, gallop or murmur. +1 edema to his bilateral lower extremities. - Abdomen Abdomen is soft, nontender nondistended. Active bowel sounds present all 4 abdominal quadrants. No guarding or rigidity. No organomegaly appreciated. Obese. - Genitourinary Deferred - Rectum Deferred - Integumentary Skin is warm and dry. No clubbing or cyanosis is present. no rash, no growths, no abnormal pigmentation - Neurologic No focal deficits. normal coordination, normal sensation - Musculoskeletal Equal strength bilateral. Moves all 4 extremities. - Psychiatric oriented to time, oriented to person, oriented to place, speech is normal, memory intact Results - Labs 02/02/24 15:09 02/02/24 15:09 Abnormal Lab Results - Last 24 Hours (Table) 02/02/24 02/02/24 02/02/24 Range/Units 07:07 13:28 15:09 Glucose 147 H (74-99) mg/dL POC Glucose (mg/dL) 122 H (70-110) mg/dL AST 76 H (17-59) U/L ALT 82 H (4-49) U/L Ur Specific [place] 1.036 H (1.001-1.035) Diabetes panel 02/02/24 Range/Units 15:09 Sodium 138 (137-145) mmol/L Potassium 3.7 (3.5-5.1) mmol/L Chloride 107 (98-107) mmol/L Carbon Dioxide 23 (22-30) mmol/L BUN 19 (9-20) mg/dL Creatinine 1.16 (0.66-1.25) mg/dL Glucose 147 H (74-99) mg/dL Calcium 8.7 (8.4-10.2) mg/dL AST 76 H (17-59) U/L ALT 82 H (4-49) U/L Alkaline Phosphatase 66 (38-126) U/L Total Protein 6.3 (6.3-8.2) g/dL Albumin 3.7 (3.5-5.0) g/dL Calcium panel 02/02/24 Range/Units 15:09 Calcium 8.7 (8.4-10.2) mg/dL Albumin 3.7 (3.5-5.0) g/dL Pituitary panel 02/02/24 Range/Units 15:09 Sodium 138 (137-145) mmol/L Potassium 3.7 (3.5-5.1) mmol/L Chloride 107 (98-107) mmol/L Carbon Dioxide 23 (22-30) mmol/L BUN 19 (9-20) mg/dL Creatinine 1.16 (0.66-1.25) mg/dL Glucose 147 H (74-99) mg/dL Calcium 8.7 (8.4-10.2) mg/dL Adrenal panel 02/02/24 Range/Units 15:09 Sodium 138 (137-145) mmol/L Potassium 3.7 (3.5-5.1) mmol/L Chloride 107 (98-107) mmol/L Carbon Dioxide 23 (22-30) mmol/L BUN 19 (9-20) mg/dL Creatinine 1.16 (0.66-1.25) mg/dL Glucose 147 H (74-99) mg/dL Calcium 8.7 (8.4-10.2) mg/dL Total Bilirubin 0.5 (0.2-1.3) mg/dL AST 76 H (17-59) U/L ALT 82 H (4-49) U/L Alkaline Phosphatase 66 (38-126) U/L Total Protein 6.3 (6.3-8.2) g/dL Albumin 3.7 (3.5-5.0) g/dL - Imaging Additional studies: Cardiac catheterization and transthoracic 2D echocardiogram results reviewed. Assessment and Plan Assessment: Multivessel coronary artery disease History of coronary artery disease Hypertension Hyperlipidemia Remote history of SVT status post adenosine and cardioversion 20 years ago Chronic kidney disease stage III Obstructive sleep apnea with home CPAP use Asthma, on Fasenra Psoriasis, on methotrexate Diabetes mellitus type 2 Morbid obesity with a BMI of 42.9 kg/m Lifetime non-smoker GERD Plan: The patient was seen and examined in the extended stay unit with the patient's present at his bedside. His chart and diagnostics reviewed. His case was discussed in detail with Dr. Cristino Samson from cardiothoracic surgery. Preoperative testing and preoperative teaching has been initiated. The usual course of myocardial vascularization surgery was discussed with the patient. A clinical frailty score was calculated with the result of 4 which shows fit/mild frailty. A 5 m walk test was completed and the patient tolerated well, with slight shortness of breath. Time 1: 2.93 seconds, Time 2: 2.80 seconds, Time 3: 3.41 seconds. Once his preoperative testing has been completed and obtained an STS risk or will be calculated and discussed with the patient. Continue to maximize medical management. He is scheduled to see Dr. Cristino Samson as an outpatient on Monday, February 06, 2023 at 1:00 pm to discuss treatment options. Medical management other comorbidities per primary care service and cardiology service. More recommendations to follow based on patient's clinical course and as his preoperative testing has been obtained. Thank you Dr. Monique for this consult and we will look forward to working with you in the care of this patient. I have personally seen and examined the patient, performed the documentation and the assessment and plan as written. Number of minutes spent on the visit: 30. J CARLOS Preciado
[2024-02-02 16:54] LABS: Lymphocytes # (M) 1.62 k/uL (1.0-4.8); Monocytes # (M) 0.06 k/uL (0-1.0); Neutrophils # (M) 4.32 k/uL (1.3-7.7); Neutrophils % (M) 72 %; Nucleated Red Blood Cells 0 /100 WBC (0-0); Total Cells Counted 100
[2024-02-02 16:55] LABS: RBC Morphology Normal
[2024-02-02 20:11] LABS: Chol/HDL Ratio 2.63 Ratio; Hepatitis A Antibody IgM Nonreactive (Nonreactive); Hepatitis B Core IgM Nonreactive (Nonreactive); Hepatitis B Surface Antigen Nonreactive (Nonreactive); Hepatitis C IgG Antibody Nonreactive (Nonreactive); LDL Cholesterol,Calculated 17.5 mg/dL (0.0-131.0)
--- NOTE | 2024-02-04 17:04 | US ---
EXAMINATION TYPE: US vein mapping BILAT DATE OF EXAM: 02/02/2024 2:22 PM COMPARISON: NONE CLINICAL INDICATION: Male, 73 years old with history of PreOp Cardiac Surgery; Preop SIDE PERFORMED: Bilateral TECHNIQUE: Lower extremity saphenous vein is examined and measured utilizing real time linear array sonography. Patient History: Smoker: Unknown Heart Disease: Yes Previous DVT: No Vascular Surgery: No Discoloration: No Hypertension: Yes Diabetes: Unknown Paralysis: No Varicosities: No Edema: No DUPLEX FINDINGS: Greater Saphenous: Color flow seen Lesser Saphenous: Color flow seen Measurements in mm: Right Greater Saphenous: Groin: 5.1 x 5.4 mm High Thigh: 4.3 x 5.0 mm Mid Thigh: 5.0 x 3.9 mm Above Knee: 4.5 x 3.4 mm Knee: 4.7 x 4.1 mm Below Knee: 3.0 x 2.7 mm Mid Calf: 2.3 x 1.9 mm At Ankle: 2.6 x 2.3 mm Left Greater Saphenous: Groin: 5.3 x 5.2 mm High Thigh: 5.7 x 5.0 mm Mid Thigh: 4.3 x 4.0 mm Above Knee: 3.4 x 3.3 mm Knee: 4.3 x 3.6 mm Below Knee: 2.6 x 2.4 mm Mid Calf: 2.7 x 1.9 mm At Ankle: 2.3 x 1.8 mm IMPRESSION: 1. Bilateral GSV measurements listed above. 2. Performing surgeon to determine viability as conduit.
--- NOTE | 2024-02-04 17:04 | US ---
EXAMINATION TYPE: US arterial LE single level DATE OF EXAM: 02/02/2024 3:04 PM CLINICAL INDICATION: Male, 73 years old with history of Ankle Brachial Index (DEVON) ; pre open heart History of: Smoker: n Hypertension: y Diabetic: y Hyperlipidemia: y TIA/CVA: n Previous Vascular Surgery: n CAD: n ME: yes Vascular Ulcers: n Claudication: n Gangrene: n Doppler Waveforms: Right: Multiphasic Left: Multiphasic Right Brachial Pressure: right radial approach Left Brachial Pressure: 121 Ankle-Brachial Indices: Right: CNO Left: PT = 120, DP = CNO (Vessel hardening > 1.4; Normal 0.9 - 1.4, Moderate 0.7 - 0.9, Severe 0.5-0.7) Toe Brachial Indices: Right: 1.0 Left: 0.7 IMPRESSION: Unable to obtain right ankle brachial index. Normal left ankle brachial index. Normal bilateral toe b rachial indices.
--- NOTE | 2024-02-04 17:12 | US ---
EXAMINATION TYPE: US carotid duplex BILAT DATE OF EXAM: 02/02/2024 COMPARISON: NONE CLINICAL INDICATION: Male, 73 years old with history of Pre-Op Cardiac Surgery; PreOp TECHNIQUE: Carotid duplex ultrasound examination. Indirect Doppler criteria was utilized. FINDINGS: EXAM MEASUREMENTS: RIGHT: Peak Systolic Velocity (PSV) cm/sec ----- Right CCA: 91.9 ----- Right ICA: 95.3 ----- Right ECA: 90.5 ICA/CCA ratio: 1.0 RIGHT: End Diastole cm/sec ----- Right CCA: 24.8 ----- Right ICA: 31.8 ----- Right ECA: 15.4 LEFT: Peak Systolic Velocity (PSV) cm/sec ----- Left CCA: 73.2 ----- Left ICA: 108.2 ----- Left ECA: 97.8 ICA/CCA ratio: 1.5 LEFT: End Diastole cm/sec ----- Left CCA: 24.8 ----- Left ICA: 35.7 ----- Left ECA: 15.0 VERTEBRALS (direction of flow): Right Vertebral: Antegrade Left Vertebral: Antegrade Rhythm: Normal ENVIRONMENTAL HEALTH MANAGER NOTES: No elevated velocities. Plaque bilateral bulbs. IMPRESSION: Atherosclerotic plaque within both carotid bulbs with less than 50% stenosis . No elevated velocities . Criteria for Assigning % of Stenosis / Diameter reduction (Estimation based on the indirect measurements of the internal carotid artery velocities (ICA PSV). 1. Normal (no stenosis)=ICA PSV < 125 cm/s: ratio < 2.0: ICA EDV<40 cm/s. 2. Less than 50% stenosis=ICA PSV < 125 cm/s: ratio < 2.0: ICA EDV<40 cm/s. 3. 50 to 69% stenosis=ICA PSV of 125 to 230 cm/s: ration 2.0 ? 4.0: ICA EDV 40-100 cm/s. 4. Greater than 70% stenosis to near occlusion= ICA PSV > 230 cm/s: ratio > 4.0: ICA EDV > 100 cm/s. 5. Near occlusion= ICA PSV velocities may be low or undetectable: variable ratio and ICA EDV. 6. Total occlusion=unable to detect flow.
== END ==
LOC: CATHCVL 06:43
PROVIDERS: ATTEND Internal Medicine Interventional Cardiology
DX: I25.10 Atherosclerotic heart disease of native coronary artery without angina pectoris (principal); I25.2 Old myocardial infarction; I10 Essential (primary) hypertension; G47.33 Obstructive sleep apnea (adult) (pediatric)
CPT/HCPCS: 94150; 93458; 76937; 80061; 80053; 80074; 84443; 83735; 85025; 85610; 85730; 81003; 87070; 83036; 71046; 93931; 93970; 93922; 93880; C8929; C1769; C1894; J2250; J2001; Q9957; J1644; Q9967; 93306

== ENCOUNTER → 2024-02-19 | Outpatient (CLI) | payer MEDICARE ==
[2024-02-19 10:13] LABS: INR 0.9 (<1.2); Partial Thromboplastin Time 25.1 sec (22.0-30.0); Prothrombin Time 9.9 sec (10.0-12.5)
[2024-02-19 14:33] LABS: HCT 38.3 % (39.6-50.0); HGB 12.3 g/dL (13.0-17.0); MCH 30.4 pg (27.0-32.0); MCHC 32.1 g/dL (32.0-37.0); MCV 94.8 FL (80.0-97.0); NRBC Per 100 WBC 0 X 10*3/uL (0.00-0.01); Platelet Count 201 X 10*3/uL (140-440); RBC 4.04 X 10*6/uL (4.40-5.60); RDW 13.8 % (11.5-14.5); WBC 6.98 X 10*3/uL (4.50-10.00)
[2024-02-19 14:49] LABS: ALT 69 U/L (10-49); AST 51 U/L (14-35); Albumin 4.1 g/dL (3.8-4.9); Albumin/Globulin Ratio 1.71 Ratio (1.60-3.17); Alkaline Phosphatase 87 U/L (41-126); BUN/Creat Ratio 15.75 Ratio (12.00-20.00); Blood Urea Nitrogen 25.2 mg/dL (9.0-27.0); Calcium 9.7 mg/dL (8.7-10.3); Carbon Dioxide 23.3 mmol/L (21.6-31.8); Chloride 102 mmol/L (96-109); Globulin 2.4 g/dL (1.6-3.3); Glucose 147 mg/dL (70-110); Magnesium 1.8 mg/dL (1.5-2.4); Sodium 141 mmol/L (135-145); Total Bilirubin 0.3 mg/dL (0.3-1.2); Total Protein 6.5 g/dL (6.2-8.2)
== END | disposition home or self-care (01) ==
LOC: LABWHC1 09:08
PROVIDERS: ATTEND Thoracic Surgery (Cardiothoracic Vascular Surgery)
DX: I25.10 Atherosclerotic heart disease of native coronary artery without angina pectoris (principal)
CPT/HCPCS: 36415; 80053; 83735; 85027; 85610; 85730; 86850; 86900; 86901; 86920

== ENCOUNTER 2024-02-26 05:34 | Inpatient (IN) | payer MEDICARE ==
[~2024-02-26 05:34] MED LIST changes: +ALBUMIN HUMAN 25% 50 ML IV ONE; +ALBUMIN HUMAN 5% 500 ML IVPB ONE; -ALPRAZolam 0.25 MG TAB PO PRN; -ALPRAZolam 0.5 MG TAB PO PRN; +ASPIRIN 325 MG TAB PO ONE; -ASPIRIN 81 MG ONE; +CALCIUM CHLORIDE 100 MG/ML 10 ML SYRINGE IV ONE; +CARDIOPLEGIC SOLN (K+ 16 MEQ/L 1,000 ML with SODIUM BICARB (1 MEQ/ML) 20 ML, LIDOCAINE ... PERFUSION ONE; +CHLORHEXIDINE GLUCONATE 15 ML CUP MUCOUS MEM ONE; +CLEVIDIPINE BUTYRATE 25 MG in EMPTY BAG 1 BAG IV ONE; +HEPARIN SODIUM 1,000 UN/ML (10ML VL) IV ONE; -HEPARIN SODIUM 1,000 UN/ML (10ML VL) ONE; +HEPARIN SODIUM,PORCINE (1 ML) 5,000 UNIT in SODIUM CHLORIDE 0.9% 500 ML 500 ML IV ONE; -HYDROcodone/APAP 7.5-325MG 1 EACH TAB ONE; +INSULIN REGULAR 100 UNIT in SODIUM CHLORIDE 0.9% 100 ML IV ONE; +MAGNESIUM SULFATE 16.24 MEQ in EMPTY SYRINGE 1 SYR IV ONE; +MANNITOL 25% 12.5 GM/50 ML VIAL IV ONE; +NITROGLYCERIN SL TABS 0.4 MG TAB SUBLINGUAL ONE; -NITROGLYCERIN SL TABS 0.4 MG TAB SUBLINGUAL PRN; +NITROGLYCERIN-D5W PMX 25 MG/250 ML BTL IV ONE; +NITROGLYCERIN-D5W PMX 50 MG in DEXTROSE/WATER 1 250ML.BAG IV ONE; +NOREPINEPHRINE 4 MG in SODIUM CHLORIDE 0.9% 250 ML IV ONE; +PAPAVERINE 360 MG in SODIUM CHLORIDE 0.9% 90 ML IV ONE; +PHENYLEPHRINE 10 MG/ML VIAL IV ONE; +PHENYLEPHRINE 40 MG in SODIUM CHLORIDE 0.9% 250 ML IV ONE; +PROTAMINE SULFATE 10 MG/ML 25 ML VIAL IV ONE; +PROTAMINE SULFATE 250 MG in EMPTY BAG 1 BAG IV ONE; +SODIUM BICARB 8.4% 50 ML SYR (1 MEQ/ML) IV ONE; +SODIUM CHLORIDE 0.9% 1,000 ML IV ONE; -SODIUM CHLORIDE 0.9% 1,000 ML in EMPTY BAG 1 BAG IV SCH; +TRANEXAMIC ACID 2,000 MG in SODIUM CHLORIDE 0.9% 80 ML IV ONE; -VERAPAMIL 2.5 MG/ML 2 ML AMP ONE; +ceFAZolin 1,000 MG in SODIUM CHLORIDE 0.9% IRRIGATIO 1,000 ML IRRIGATION ONE; +ceFAZolin 3 GM in SODIUM CHLORIDE 0.9% 100 ML IVPB ONE; -fentaNYL (PF) 50 MCG/ML 2 ML AMP ONE; +propofoL 1,000 MG/100 ML VIAL IV ONE
[2024-02-26] MEDS ORDERED: LIDOCAINE 1% (10MG/ML) FOR IV START INTRADERMA PRN (05:39)
[2024-02-26] MEDS ORDERED: LACTATED RINGERS 1,000 ML IV SCH (05:39)
[2024-02-26] MEDS ORDERED: MIDAZOLAM 2 MG/2 ML VIAL IV PRN (05:39)
[2024-02-26] MEDS ORDERED: fentaNYL (PF) 50 MCG/ML 2 ML AMP IVP PRN (05:39)
[2024-02-26] MEDS: ATORVASTATIN 10 MG TAB PO ONE (06:03)
[2024-02-26] MEDS: METOPROLOL TARTRATE 12.5 MG TAB PO ONE (06:04)
[2024-02-26 06:24] LABS: Glucose,Whole Blood 142 mg/dL (70-110)
[2024-02-26] MEDS: LACTATED RINGERS 1,000 ML IV ONE (06:28)
[2024-02-26] MEDS: IV FLUID CONTINUATION 1,000 ML IV ONE (06:56)
[2024-02-26] MEDS ORDERED: HEPARIN SODIUM,PORCINE 10,000 UNIT/ML 1 ML VIAL ONE (07:28)
[2024-02-26] MEDS ORDERED: PHENYLEPHRINE-0.9% NACL SYG 1,000 MCG/10 ML SYRINGE ONE (07:28)
[2024-02-26] MEDS ORDERED: MIDAZOLAM HCL 10 MG/10 ML VIAL ONE (07:28)
[2024-02-26] MEDS ORDERED: PROPOFOL 10 MG/ML 20 ML VIAL IV ONE (07:28)
[2024-02-26] MEDS ORDERED: VECURONIUM 10 MG VIAL IV ONE (07:28)
[2024-02-26] MEDS ORDERED: SUCCINYLCHOLINE CHLORIDE 200 MG/10 ML VIAL IV ONE (07:28)
[2024-02-26] MEDS ORDERED: PHENYLEPHRINE 10 MG/ML VIAL ONE (07:28)
[2024-02-26] MEDS ORDERED: WATER FOR INJECTION, STERILE 10 ML VIAL IV ONE (07:28)
[2024-02-26] MEDS ORDERED: fentaNYL (PF) 50 MCG/ML 50 ML VIAL ONE (07:28)
[2024-02-26] MEDS ORDERED: PROTAMINE SULFATE 10 MG/ML 25 ML VIAL IV ONE (07:28)
[2024-02-26] MEDS ORDERED: ALBUMIN HUMAN 5% (25gm) 500 ML VIAL IVPB ONE (07:28)
--- NOTE | 2024-02-26 07:39 | P.ANPRN ---
Procedure Note - Anesthesia - Invasive Line Right Arterial Line Time Out Performed: Yes Date of Procedure: 02/26/24 Time of Procedure: 07:05 Location of Patient: PreOp Preparation: Sterile Prep, Sterile Dressing Arterial Line Location: Radial Ultrasound Used: No Needle Guage: 20 g Image Stored and Saved: No Narrative: Right radial arterial line placed by PRODUCTION RECORDER under sterile conditions Right Central Line Time Out Performed: Yes Date of Procedure: 02/26/24 Time of Procedure: 07:15 Location of Patient: PreOp Preparation: Sterile Prep, Sterile Dressing Central Line Location: Internal Jugular Ultrasound Used: Yes Purpose - Visualization and Identification of Vasculature: Yes Needle Guage: 18 Image Stored and Saved: Yes Narrative: Right neck prepped and draped. Under u/s guidance, 1% lidocaine, 5 ml injected subq. 18 G needle advanced to RIJ. Wire inserted and seen in IJ on u/s. Small ryland made over the wire and the cordis advanced over the wire. Line secured in place. Biopatch and dressing applied Right [place] Time Out Performed: Yes Date of Procedure: 02/26/24 Time of Procedure: 07:25 Location of Patient: PreOp Preparation: Sterile Prep, Sterile Dressing [place] Line Location: Internal Jugular Ultrasound Used: No Narrative: SWAN had all ports flushed and balloon tested. Advanced to 20 cm and balloon inflated. Advanced until RV and PA waveforms obtained. Balloon deflated and catheter secured at 45 cm.
[2024-02-26 08:24] LABS: ABG Base Excess 1.2 mmol/L; ABG Glucose Whole Blood 136 mg/dL (75-99); ABG HCO3 27 mmol/L (21-25); ABG Hematocrit 34 % (34.0-46.0); ABG Ionized Calcium 4.9 mg/dL (4.5-5.3); ABG Lactic Acid Whole Blood 1.9 mmol/L (0.5-1.6); ABG Oxygen Saturation 98.6 % (94-97); ABG PCO2 46 mmHg (35-45); ABG PH 7.37 (7.35-7.45); ABG PO2 187 mmHg (83-108); ABG Sodium Whole Blood 141 mmol/L (135-146); ABG TCO2 25 mmol/L (19-24); Allen Test Performed? Yes
[2024-02-26] MEDS: SODIUM CHLORIDE 0.9% 500 ML 500 ML with HEPARIN SODIUM,PORCINE (1 ML) 5,000 UNIT IV ONE (08:57)
[2024-02-26] MEDS: PAPAVERINE 360 MG in SODIUM CHLORIDE 0.9% 90 ML IV ONE (08:57)
[2024-02-26] MEDS: DILTIAZEM 125 MG in SODIUM CHLORIDE 0.9% 100 ML IV ONE (08:57)
[2024-02-26] MEDS: ceFAZolin 1,000 MG in SODIUM CHLORIDE 0.9% 1,000 ML IRRIGATION ONE (08:57)
[2024-02-26 10:02] LABS: ABG Glucose Whole Blood 143 mg/dL (75-99); ABG HCO3 24 mmol/L (21-25); ABG Hematocrit 30 % (34.0-46.0); ABG Oxygen Saturation 99.2 % (94-97); ABG PCO2 39 mmHg (35-45); ABG PO2 264 mmHg (83-108); ABG Potassium Whole Blood 4.2 mmol/L (3.4-4.5); ABG Sodium Whole Blood 142 mmol/L (135-146); ABG TCO2 22 mmol/L (19-24); Allen Test Performed? Yes
[2024-02-26 10:44] LABS: ABG Base Excess -0.7 mmol/L; ABG Glucose Whole Blood 144 mg/dL (75-99); ABG HCO3 24 mmol/L (21-25); ABG Hematocrit 30 % (34.0-46.0); ABG Ionized Calcium 4.9 mg/dL (4.5-5.3); ABG Oxygen Saturation 99.1 % (94-97); ABG PCO2 37 mmHg (35-45); ABG PH 7.41 (7.35-7.45); ABG PO2 296 mmHg (83-108); ABG Potassium Whole Blood 4.2 mmol/L (3.4-4.5); ABG Sodium Whole Blood 142 mmol/L (135-146); ABG TCO2 22 mmol/L (19-24); Allen Test Performed? Yes
[2024-02-26 11:47] LABS: ABG Base Excess -1.9 mmol/L; ABG Glucose Whole Blood 133 mg/dL (75-99); ABG HCO3 23 mmol/L (21-25); ABG Hematocrit 29 % (34.0-46.0); ABG Ionized Calcium 4.8 mg/dL (4.5-5.3); ABG Oxygen Saturation 99.1 % (94-97); ABG PCO2 39 mmHg (35-45); ABG PH 7.38 (7.35-7.45); ABG PO2 283 mmHg (83-108); ABG Potassium Whole Blood 4.2 mmol/L (3.4-4.5); ABG Sodium Whole Blood 141 mmol/L (135-146); ABG TCO2 22 mmol/L (19-24); Allen Test Performed? Yes
[2024-02-26 12:32] LABS: ABG Ionized Calcium 6.3 mg/dL (4.5-5.3); ABG Lactic Acid Whole Blood 2.1 mmol/L (0.5-1.6)
[2024-02-26 12:33] LABS: ABG Lactic Acid Whole Blood 2.3 mmol/L (0.5-1.6)
[2024-02-26 12:36] LABS: ABG Base Excess -2.7 mmol/L; ABG Glucose Whole Blood 144 mg/dL (75-99); ABG HCO3 22 mmol/L (21-25); ABG Hematocrit 30 % (34.0-46.0); ABG Ionized Calcium 4.7 mg/dL (4.5-5.3); ABG Oxygen Saturation 98.6 % (94-97); ABG PCO2 39 mmHg (35-45); ABG PH 7.37 (7.35-7.45); ABG PO2 213 mmHg (83-108); ABG Potassium Whole Blood 4.1 mmol/L (3.4-4.5); ABG Sodium Whole Blood 141 mmol/L (135-146); ABG TCO2 21 mmol/L (19-24); Allen Test Performed? Yes
[2024-02-26 12:40] LABS: ABG Lactic Acid Whole Blood 2.8 mmol/L (0.5-1.6)
[2024-02-26] MEDS ORDERED: DEXTROSE 5% IN WATER 100 ML with AMIODARONE 150 MG IV PRN (12:46)
[2024-02-26] MEDS ORDERED: BRIMONIDINE TARTRATE 0.2% DROPS 5 ML BTL BOTH EYES PRN (12:46)
[2024-02-26] MEDS ORDERED: BENZOCAINE/MENTHOL LOZENG 1 EACH LOZENGE MUCOUS MEM PRN (12:46)
[2024-02-26] MEDS ORDERED: Magnesium Replacement Protocol 1 EACH MISC MISCELLANE PRN ×2 (12:46→19:17)
[2024-02-26] MEDS ORDERED: DEXTROSE 50% SYRINGE 50 ML IVP PRN ×2 (12:46)
[2024-02-26] MEDS ORDERED: AMIODARONE 360 MG in DEXTROSE 5% IN WATER 200 ML IV PRN (12:46)
[2024-02-26] MEDS ORDERED: DEXMEDETOMIDINE/0.9% NACL(PMX) 400 MCG in EMPTY BAG 1 BAG IV SCH (12:46)
[2024-02-26] MEDS ORDERED: hydrALAZINE HCL 20 MG/ML 1 ML VIAL IVP PRN (12:46)
[2024-02-26] MEDS ORDERED: Potassium Replacement Protocol 1 EACH MISC MISCELLANE PRN (12:46)
[2024-02-26] MEDS ORDERED: AMIODARONE 450 MG in DEXTROSE 5% IN WATER 250 ML IV PRN (12:46)
[2024-02-26] MEDS ORDERED: BENRALIZUMAB 30 MG/ML SQ SCH (12:46)
[2024-02-26] MEDS: ALBUMIN HUMAN 5% 250 ML IVPB ONE (13:07)
[2024-02-26] MEDS: LACTATED RINGERS 1,000 ML IV SCH (13:11)
--- NOTE | 2024-02-26 13:12 | P.OP ---
Date of Procedure: 02/26/24 Preoperative Diagnosis: Coronary artery disease Postoperative Diagnosis: Same Procedure(s) Performed: Off-pump CABG x 4 with PARKS to LAD, sequential left radial artery graft off the PARKS to intermediate and first diagonal, saphenous vein graft to PDA, endo vascular vein harvest, endovascular left radial artery harvest, ligation of the left atrial appendage with 35mm AtriCure clip. Implants: 35 mm AtriCure clip. Anesthesia: GETA Surgeon: Cristino Samson Installment Loan Collector #1: Lonnie Paulino Installment Loan Collector #2: Onel Mondragon Estimated Blood Loss (ml): 500 IV fluids (ml): 2,500 Urine output (ml): 200 Pathology: none sent Condition: stable Disposition: ICU Indications for Procedure: 73-year-old male with stable anginal symptomatology, left ventricular function is diminished. Cardiac catheterization demonstrated severe three-vessel coronary artery disease with complete occlusion of both the right and LAD. Surgical revascularization was requested by Dr. Monique Operative Findings: Left ventricle was enlarged and overall ventricular function was poor. Initial DAVID demonstrated 2+ central regurgitation. Following revascularization, this diminished to trace. Left ventricular function was relatively unchanged on completion DAVID. PARKS and saphenous vein conduits were good. The left radial artery conduit had calcification at the wrist and again at the brachial and. The intervening segment was utilized but was short. The LAD was a 1.5 mm vessel of good quality. The PDA was a 1.5 mm vessel of good quality. The intermediate and first diagonal were both 1.75 mm vessel was of excellent quality. Circumflex branches were small and therefore not grafted. Description of Procedure: Patient was brought to the operating room placed supine on the operating table. General anesthesia was induced. DAVID probe was placed. Anterior torso and bilateral lower extremities were sterilely prepped and draped. Left upper extremity was also sterilely prepped and draped. Left radial artery was harvested on a vascularized pedicle using endoscopic harvest technique with findings as noted above. Left greater saphenous vein was harvested using endovascular technique and was of good quality. Both incisions were closed with layers of Vicryl suture. Both conduits were prepared on the back table. Simultaneous midline sternotomy was performed. The left hemisternum was retracted upwards and the left internal mammary artery harvested on a vascularized pedicle. Left pleural space was drained with a 32 Welsh chest tube. Sternum sternal retractor was placed and the pericardium was opened in the midline. The heart was exposed with pericardial sutures. The patient was heparinized and ACT's were maintained greater than 250 during grafting. 35 mm AtriCure clip was applied to the base of the left atrial appendage. We began grafting with the PARKS to the LAD. The PARKS was tunneled into the pericardial s ac. The LAD was stabilized in its midportion and opened with placement of a 1.5 mm flow through to control the flow of blood. End-to-side anastomosis between the PARKS and the LAD was performed with running 8-0 Prolene suture. On completion anastomosis the flow through was removed 50 probing the proximal distal portion of the anastomosis. Suture was tied good result and hemostasis. Length was good. JONG pedicle was tacked surrounding epicardium with 6-0 silk. Next the high lateral wall was exposed and the diagonal and intermediate coronary arteries were identified. Radial artery was examined and trimmed appropriately to remove the calcific segments. The diagonal was stabilized and opened longitudinally. Blood flow was controlled with a 1.5 mm flow through. End-to-side anastomosis between the radial artery and the first diagonal was performed with running 7-0 Prolene suture. On completion of the anastomosis the flow through was removed effectively probing the proximal distal portion of the anastomosis. Suture was tied with good result and hemostasis. Good backbleeding was noted in the radial artery. Next the intermediate coronary artery was stabilized and opened. Blood flow was controlled with a 1.5 mm flow through. Soch-as-ixce anastomosis was performed between the radial and the intermediate with running 7-0 Prolene suture. On completion of the anastomosis the flow through was removed effectively probing the proximal distal portion of the anastomosis. Suture was tied with good result and hemostasis. Again good backbleeding was noted into the radial artery. Graft was noted to lay well. Bulldog was removed distally and placed proximally. Radial was not of adequate length to reach the ascending aorta but it did easily reach the PARKS as it entered the pericardial space. Bulldogs were placed proximally and distally on the PARKS and the it was opened longitudinally and the proximal anastomosis constructed with running 8-0 Prolene suture. On completion of the anastomosis it was de-aired by backbleeding and the suture tied and then the inflow open to all 3 arterial grafts. Next the inferior wall was exposed. The PDA was stabilized. It was a 1.5 mm vessel. It was opened and blood flow controlled with a 1.5 mm flow through. Saphenous vein was anastomosed in end-to-side fashion with running 7-0 Prolene suture. On completion anastomosis the flow through was removed probing the proximal distal portion of the anastomosis. Suture was tied with good result and hemostasis. Good backbleeding was noted to the first valve. Heart was lowered in anatomic position and the vein cut to appropriate length to reach the ascending aorta. A heartstring device was deployed in the proximal ascending aorta in the midline and the proximal anastomosis constructed with running 5-0 Prolene suture. On completion of the proximal anastomosis the heartstring device was removed and the suture tied with good result and hemostasis. Vein graft was de-aired with needle holes in the inflow open. All the grafts were limb noted to lay well. There was no significant hemorrhage. Heparin was reversed with protamine. Good hemostasis was obtained throughout. The mediastinum was drained with 236 Welsh chest tubes. Mediastinum was irrigated with antibiotic solution and the sternum was closed with 8 sternal wires. Fascia was closed with 0 Ethibond. Subcutaneous and subcuticular layers were closed with layers of Vicryl suture. Dry sterile dressings were applied and the patient was transferred to the ICU in stable condition.
[2024-02-26] MEDS: NITROGLYCERIN-D5W PMX 50 MG in DEXTROSE/WATER 1 250ML.BAG IV SCH (13:26)
[2024-02-26] MEDS: DILTIAZEM 125 MG in SODIUM CHLORIDE 0.9% 100 ML IV SCH (13:29)
[2024-02-26] MEDS: INSULIN REGULAR 100 UNIT in SODIUM CHLORIDE 0.9% 100 ML IV SCH (13:31)
[2024-02-26] MEDS: DOPamine DRIP 800 MG in DEXTROSE/WATER 1 250ML.BAG IV SCH (13:32)
[2024-02-26] MEDS: CLEVIDIPINE BUTYRATE 25 MG in EMPTY BAG 1 BAG IV SCH (13:32)
[2024-02-26 13:35] LABS: Glucose,Whole Blood 167 mg/dL (70-110)
[2024-02-26 13:40] LABS: ABG HCO3 23 mmol/L (21-25); ABG Oxygen Saturation 99.9 % (94-97); ABG PCO2 45 mmHg (35-45); ABG PH 7.32 (7.35-7.45); ABG PO2 256 mmHg (83-108); ABG TCO2 24 mmol/L (19-24); Allen Test Performed? Yes
[2024-02-26 13:45] LABS: Basophils % (A) 0 %; Eosinophils % (A) 0 %; HCT 32.6 % (39.0-53.0); HGB 10.1 gm/dL (13.0-17.5); Lymphocytes # (A) 1.1 k/uL (1.0-4.8); Lymphocytes % (A) 7 %; MCHC 31.1 g/dL (31.0-37.0); MCV 96.4 fL (80.0-100.0); Monocytes # (A) 0.7 k/uL (0-1.0); Monocytes % (A) 4 %; Neutrophils # (A) 14.4 k/uL (1.3-7.7); Neutrophils % (A) 88 %; Platelet Count 145 k/uL (150-450); RBC 3.38 m/uL (4.30-5.90); RDW 13.7 % (11.5-15.5); WBC 16.3 k/uL (3.8-10.6)
[2024-02-26 13:51] LABS: INR 1.1 (<1.2); Partial Thromboplastin Time 25.6 sec (22.0-30.0); Prothrombin Time 11.7 sec (10.0-12.5)
[2024-02-26 13:56] LABS: Ionized Calcium 4.9 mg/dL (4.5-5.3)
[2024-02-26 14:16] LABS: Glucose,Whole Blood 162 mg/dL (70-110)
--- NOTE | 2024-02-26 14:22 | XR ---
EXAMINATION TYPE: XR chest 1V portable DATE OF EXAM: 02/26/2024 HISTORY: Post Op CABG COMPARISON: NONE TECHNIQUE: Single view of the chest is submitted. FINDINGS: Endotracheal tube, NG tube, SG catheter, mediastinal drains and chest tubes are appropriately placed. Post operative changes of CABG. No sizeable pneumothorax. Scattered Pleural-parenchymal opacities may reflect atelectasis. The heart is not enlarged. IMPRESSION: 1. Post operative changes of CABG.
[2024-02-26 14:25] LABS: ALT 37 U/L (4-49); AST 49 U/L (17-59); African American GFR (CKD) 74 (>60 ml/min/1.73 sqM); Albumin 3.4 g/dL (3.5-5.0); Alkaline Phosphatase 57 U/L (38-126); Anion Gap 8 mmol/L; Blood Urea Nitrogen 22 mg/dL (9-20); Calcium 8.8 mg/dL (8.4-10.2); Carbon Dioxide 21 mmol/L (22-30); Chloride 110 mmol/L (98-107); Glucose 158 mg/dL (74-99); Magnesium 1.6 mg/dL (1.6-2.3); Non-African American GFR(CKD) 64 (>60 ml/min/1.73 sqM); Sodium 139 mmol/L (137-145); Total Bilirubin 0.8 mg/dL (0.2-1.3); Total Protein 5.3 g/dL (6.3-8.2)
[2024-02-26 15:17] LABS: Glucose,Whole Blood 176 mg/dL (70-110)
[2024-02-26] MEDS: ONDANSETRON 4 MG/2 ML VIAL IVP PRN (15:53)
[2024-02-26] MEDS ORDERED: MUPIROCIN 2% OINT 22 GM TUBE NASAL ONE (16:00)
[2024-02-26 16:11] LABS: Glucose,Whole Blood 159 mg/dL (70-110)
[2024-02-26] MEDS: ALBUMIN HUMAN 5% 250 ML in EMPTY BAG 1 BAG IVPB PRN (16:14)
--- NOTE | 2024-02-26 16:17 | P.CNPUL ---
History of Present Illness Consult date: 02/26/24 Requesting physician: Cristino Samson Reason for consult: other (Ventilator/critical care management) Chief complaint: coronary artery disease History of present illness: This is a 73-year-old male patient with a known history of obstructive sleep apnea, obesity, asthma, psoriasis, chronic back pain. FEV1 value is 60% of predicted. He was recently found to have significant coronary artery disease and was brought in today electively for bypass surgery. He did undergo off-pump coronary artery bypass grafting x 4 with a PARKS to the LAD, sequential left radial artery graft to the intermediate and first diagonal, SVG to the PDA. Ligation of the left atrial appendage with a 35 mm AtriCure clip. He is seen in follow-up in the intensive care unit. He is intubated on the mechanical venti lator. He is currently on pressure support of 10 and CPAP of 5 with 50% FiO2. His sedation is off. Plan is for early extubation protocol. Arterial blood gases revealed a PaO2 of 256, pCO2 of 45 and a pH of 7.32. His cardiac output is 7.2. Cardiac index 3.1. PA pressure 29/15. CVP 11. He is on lactated Ringer's at 50 MLS per hour. A Cardizem drip at 5 mg/h. Nitroglycerin drip at 5 mcg/min, insulin drip at 6 units/h. Dopamine drip at 3 mcg/kg/min. Mediastinal split chest tube and a left pleural chest tubes are in place. Dust x-ray reveals catheters and drains in appropriate position. Postoperative changes. No pneumothorax. White count 16.3. Hemoglobin 10.1. Platelets 145. Sodium 139. Potassium 4.0. Bicarb 21. BUN 22. Creatinine 1.15. Glucose 167. He is initiated on bronchodilators. Heparin for DVT prophylaxis. 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 History of Any Multi-Drug Resistant Organisms: None Reported Past Surgical History: Cholecystectomy, Heart Catheterization, Hernia Repair, Joint Replacement Additional Past Surgical History / Comment(s): Bilateral eye cataract removed, bilateral total knees, total R hip, PAIN CLINIC PROCEDURE, COLONOSCOPY,rt inguinal hernia repair Past Anesthesia/Blood Transfusion Reactions: No Reported Reaction Additional Past Anesthesia/Blood Transfusion Reaction / Comment(s): no hx blood transfusion Smoking Status: Never smoker - Past Family History Father Family Medical History: CVA/TIA, Diabetes Mellitus Additional Family Medical History / Comment(s): Massive cva at 78yrs Mother Additional Family Medical History / Comment(s): Chronic kidney disease, coronary artery disease, history of myocardial infarction- at age 93 Medications and Allergies Home Medications Medication Instructions Recorded Confirmed Type Aspirin EC [Ecotrin Low Dose] 81 mg PO QAM 12/17/21 02/20/24 History Atorvastatin [Lipitor] 40 mg PO HS 12/17/21 02/20/24 History Spironolactone 12.5 mg PO QAM 12/17/21 02/20/24 History metHOTREXate sodium 20 mg PO MO 12/17/21 02/20/24 History Benralizumab [Fasenra] 1 dose SQ Q56D 06/23/23 02/20/24 History Folic Acid 1 mg PO SUTUWETHFRSA 06/23/23 02/20/24 History Furosemide [Lasix] 40 mg PO QAM 06/23/23 02/20/24 History metFORMIN HCL [Glucophage] 500 mg PO BID 06/23/23 02/20/24 History Clotrimazole/Betamethasone Dip 1 applic TOPICAL DAILY PRN 12/08/23 02/20/24 History [Clotrimazole-Betamethasone Lot] Docusate [Colace] 100 mg PO DAILY 12/08/23 02/20/24 History Econazole 1% Cream [Spectazole] 1 cream TOPICAL DAILY PRN 12/08/23 02/20/24 History Pantoprazole Sodium 40 mg PO BID 12/08/23 02/20/24 History Cholecalciferol (Vitamin D3) 50 mcg PO QAM 01/31/24 02/20/24 History [Vitamin D3 (50 Mcg = 2000 Iu)] Gabapentin 300 mg PO QAM 01/31/24 02/20/24 History Gabapentin 600 mg PO HS 01/31/24 02/20/24 History Isosorbide Mononitrate ER [Imdur] 30 mg PO QAM 01/31/24 02/20/24 History Losartan [Cozaar] 50 mg PO QAM 01/31/24 02/23/24 History Magnesium 400 mg PO QAM 01/31/24 02/20/24 History Brimonidine 0.15% 1 drop BOTH EYES DAILY PRN 02/20/24 02/20/24 History HYDROcodone/APAP 7.5-325MG [[place] 1 tab PO Q6H PRN 02/20/24 02/20/24 History 7.5-325] Allergies Allergy/AdvReac Type Severity Reaction Status Date / Time empagliflozin Allergy Nausea & Verified 02/20/24 15:01 [From Jardiance] Vomiting semaglutide [From Ozempic] Allergy Nausea & Verified 02/20/24 15:01 Vomiting Physical Exam Vitals: Vital Signs Temp Pulse Pulse Resp BP BP BP 02/26/24 15:41 15 02/26/24 15:20 02/26/24 15:00 68 26 H 02/26/24 14:45 69 24 02/26/24 14:30 67 15 02/26/24 14:15 66 20 100/49 02/26/24 14:00 66 16 02/26/24 13:45 67 17 02/26/24 13:30 70 15 02/26/24 13:21 02/26/24 13:15 02/26/24 06:01 98.3 F 81 18 136/75 133/72 Pulse Ox FiO2 02/26/24 15:41 100 02/26/24 15:20 50 02/26/24 15:00 97 40 02/26/24 14:45 97 02/26/24 14:30 97 02/26/24 14:15 100 02/26/24 14:00 97 50 02/26/24 13:45 100 02/26/24 13:30 100 100 02/26/24 13:21 100 02/26/24 13:15 100 02/26/24 06:01 95 Intake and Output 02/26/24 02/26/24 02/26/24 06:59 14:59 22:59 Intake Total 300 219.499 62.627 Output Total 1027 110 Balance 300 -807.501 -47.373 Intake: IV 300 217.0 56.5 Diltiazem 125 mg In 10 5 Sodium Chloride 0.9% 100 ml @ 5 MG/HR 5 mls/hr IV .Q24H YA Rx#:[id number] Lactated Ringers 1,000 ml 100 50 @ 50 mls/hr IV .Q20H YA Rx#:[id number] Nitroglycerin-D5w Pmx 50 3.0 1.5 mg In Dextrose/Water 1 250ml.bag @ 5 MCG/MIN 1.5 mls/hr IV .Q24H YA Rx#: [id number] Intake, IV Titration 2.499 6.127 Amount Insulin Regular 100 unit 2.499 6.127 In Sodium Chloride 0.9% 100 ml @ Per Protocol IV .Q0M YA Rx#:[id number] Output: Chest Tube Drainage 135 80 Chest Tube Left Lateral 25 0 Chest Chest Tube Mediastinal 110 80 Urine 292 30 Estimated Blood Loss 600 Other: Voiding Method Indwelling Catheter Indwelling Catheter Weight 127.4 kg ABP, PAP, CO, CI - Last 8 Hours Arterial Blood Pressure 101/50 Arterial Blood Pressure 96/53 Arterial Blood Pressure 100/50 Arterial Blood Pressure 92/46 Arterial Blood Pressure 105/48 Arterial Blood Pressure 106/49 Arterial Blood Pressure 115/50 Pulmonary Artery Pressure 29/15 Pulmonary Artery Pressure 35/20 Pulmonary Artery Pressure 33/17 Pulmonary Artery Pressure 32/17 Pulmonary Artery Pressure 37/19 Pulmonary Artery Pressure 33/17 Pulmonary Artery Pressure 34/14 Cardiac Output 7.2 Cardiac Output 6.3 Cardiac Output 6.3 Cardiac Output 6.3 Cardiac Output 6.3 Cardiac Output 6.3 Cardiac Index 3.1 Cardiac Index 2.7 Cardiac Index 2.7 Cardiac Index 2.7 Cardiac Index 2.7 Cardiac Index 2.7 GENERAL EXAM: Intubated, sedated 73-year-old male patient on the mechanical ventilator, in no apparent distress. HEAD: Normocephalic. EYES: Sluggish reaction of pupils, equal size. NOSE: Clear with pink turbinates. THROAT: Oral endotracheal and gastric tube secured in place. No erythema or exudates. NECK: Right IJ [place] catheter in place. No masses, no JVD. CHEST: Sternal dressing dry and intact. Heart hugger in place. Mediastinal and left pleural chest tubes in place. Pacer wires in place. LUNGS: Equal air entry with no crackles, wheeze, rhonchi or dullness. CVS: S1 and S2 normal with no audible murmur, regular rhythm. ABDOMEN: No hepatosplenomegaly,no guarding or rigidity. SPINE: No scoliosis or deformity SKIN: No rashes CENTRAL NERVOUS SYSTEM: Sedated, tone is normal in all 4 extremities. EXTREMITIES: Left upper extremity with Frank wrap in place. Right radial arterial line in place. Frank wraps to the bilateral lower extremities. Sequential compression devices in place. Peripheral pulses are intact. Results - Laboratory Findings CBC and BMP: 02/26/24 13:21 02/26/24 13:21 ABG ABG pH 7.32 (7.35-7.45) L 02/26/24 13:38 ABG pCO2 45 mmHg (35-45) 02/26/24 13:38 ABG pO2 256 mmHg (83-108) H 02/26/24 13:38 ABG O2 Saturation 99.9 % (94-97) H 02/26/24 13:38 PT/INR, D-dimer PT 11.7 sec (10.0-12.5) 02/26/24 13:21 INR 1.1 (<1.2) 02/26/24 13:21 Abnormal lab findings: Abnormal Labs 02/19/24 02/26/24 02/26/24 09:26 06:23 08:26 WBC RBC Hgb Hct Plt Count Neutrophils # ABG pH ABG pCO2 46 H ABG pO2 187 H ABG HCO3 27 H ABG Total CO2 25 H ABG O2 Saturation 98.6 H ABG Hematocrit ABG Potassium 5.0 H ABG Ionized Calcium ABG Glucose 136 H ABG Lactic Acid 1.9 H Hemoglobin 11.0 L Chloride Carbon Dioxide BUN Glucose POC Glucose (mg/dL) 142 H Total Protein Albumin Arterial Blood Potassium 5.0 H Arterial Blood Glucose 136 H Crossmatch See Detail 02/26/24 02/26/24 02/26/24 10:04 10:46 11:49 WBC RBC Hgb Hct Plt Count Neutrophils # ABG pH ABG pCO2 ABG pO2 264 H 296 H 283 H ABG HCO3 ABG Total CO2 ABG O2 Saturation 99.2 H 99.1 H 99.1 H ABG Hematocrit 30 L 30 L 29 L ABG Potassium ABG Ionized Calcium 6.3 H* ABG Glucose 143 H 144 H 133 H ABG Lactic Acid 2.1 H 2.3 H* 3.0 H* Hemoglobin 9.9 L 9.9 L 9.5 L Chloride Carbon Dioxide BUN Glucose POC Glucose (mg/dL) Total Protein Albumin Arterial Blood Potassium Arterial Blood Glucose 143 H 144 H 133 H Crossmatch 02/26/24 02/26/24 02/26/24 12:38 13:21 13:21 WBC 16.3 H RBC 3.38 L Hgb 10.1 L Hct 32.6 L Plt Count 145 L Neutrophils # 14.4 H ABG pH ABG pCO2 ABG pO2 213 H ABG HCO3 ABG Total CO2 ABG O2 Saturation 98.6 H ABG Hematocrit 30 L ABG Potassium ABG Ionized Calcium ABG Glucose 144 H ABG Lactic Acid 2.8 H* Hemoglobin 9.8 L Chloride 110 H Carbon Dioxide 21 L BUN 22 H Glucose 158 H POC Glucose (mg/dL) Total Protein 5.3 L Albumin 3.4 L Arterial Blood Potassium Arterial Blood Glucose 144 H Crossmatch 02/26/24 02/26/24 02/26/24 13:24 13:38 14:14 WBC RBC Hgb Hct Plt Count Neutrophils # ABG pH 7.32 L ABG pCO2 ABG pO2 256 H ABG HCO3 ABG Total CO2 ABG O2 Saturation 99.9 H ABG Hematocrit ABG Potassium ABG Ionized Calcium ABG Glucose ABG Lactic Acid Hemoglobin Chloride Carbon Dioxide BUN Glucose POC Glucose (mg/dL) 167 H 162 H Total Protein Albumin Arterial Blood Potassium Arterial Blood Glucose Crossmatch 02/26/24 15:14 WBC RBC Hgb Hct Plt Count Neutrophils # ABG pH ABG pCO2 ABG pO2 ABG HCO3 ABG Total CO2 ABG O2 Saturation ABG Hematocrit ABG Potassium ABG Ionized Calcium ABG Glucose ABG Lactic Acid Hemoglobin Chloride Carbon Dioxide BUN Glucose POC Glucose (mg/dL) 176 H Total Protein Albumin Arterial Blood Potassium Arterial Blood Glucose Crossmatch - Diagnostic Findings Chest x-ray: image reviewed Assessment and Plan Assessment: Coronary artery disease status post off-pump coronary artery bypass grafting x 4 with a PARKS to the LAD, sequential left radial artery graft to the first diag onal and intermediate, SVG to the PDA. Left atrial appendage ligation with clipping using 35mm atrial cure clip. Postoperative day #0 Obesity Obstructive sleep apnea Gastroesophageal reflux disease History of asthma, mild and intermittent History of psoriatic arthritis Chronic back pain Hyperlipidemia Hypertension Plan: The patient was seen and evaluated Chest x-ray, ABGs, labs and medications reviewed Will plan for early extubation protocol as tolerated Continue bronchodilators Heparin for DVT prophylaxis Assure the use of the incentive spirometer Continue to monitor closely here in the intensive care unit We will continue to follow and make further recommendations based on his clinical status I have personally seen and examined the patient, performed the documentation and the assessment and plan as written. Number of minutes spent on the visit: 20.
[2024-02-26] MEDS: IPRATROPIUM-ALBUTEROL 3 ML NEB INHALATION SCH ×2 (16:29)
[2024-02-26] MEDS: ceFAZolin 3 GM in SODIUM CHLORIDE 0.9% 100 ML IVPB SCH (17:02)
[2024-02-26] MEDS: ACETAMINOPHEN IV (For NPO) 1,000 MG in EMPTY BAG 1 BAG IVPB SCH (17:04)
[2024-02-26] MEDS: HEPARIN SODIUM,PORCINE 5,000 UNIT/ML 1 ML VIAL SQ SCH (17:06)
[2024-02-26 17:07] LABS: Basophils % (A) 0 %; Eosinophils % (A) 0 %; HCT 33.9 % (39.0-53.0); HGB 10.4 gm/dL (13.0-17.5); Lymphocytes # (A) 0.6 k/uL (1.0-4.8); Lymphocytes % (A) 3 %; MCH 30.2 pg (25.0-35.0); MCHC 30.8 g/dL (31.0-37.0); MCV 98.2 fL (80.0-100.0); Mean Platelet Volume 9.8; Monocytes # (A) 0.9 k/uL (0-1.0); Monocytes % (A) 4 %; Neutrophils # (A) 17.7 k/uL (1.3-7.7); Neutrophils % (A) 92 %; Platelet Count 157 k/uL (150-450); RBC 3.46 m/uL (4.30-5.90); RDW 13.7 % (11.5-15.5); WBC 19.2 k/uL (3.8-10.6)
[2024-02-26 17:13] LABS: Glucose,Whole Blood 151 mg/dL (70-110)
[2024-02-26 18:03] LABS: Glucose,Whole Blood 146 mg/dL (70-110)
[2024-02-26 18:59] LABS: Glucose,Whole Blood 143 mg/dL (70-110)
[2024-02-26 19:18] LABS: Basophils % (A) 0 %; Eosinophils # (A) 0.1 k/uL (0-0.7); Eosinophils % (A) 0 %; HCT 31.6 % (39.0-53.0); HGB 9.7 gm/dL (13.0-17.5); Lymphocytes # (A) 0.3 k/uL (1.0-4.8); Lymphocytes % (A) 1 %; MCH 29.6 pg (25.0-35.0); MCHC 30.6 g/dL (31.0-37.0); MCV 96.9 fL (80.0-100.0); Mean Platelet Volume 10.6; Monocytes # (A) 1.2 k/uL (0-1.0); Monocytes % (A) 6 %; Neutrophils # (A) 18.4 k/uL (1.3-7.7); Neutrophils % (A) 92 %; Platelet Count 140 k/uL (150-450); RBC 3.26 m/uL (4.30-5.90); RDW 13.8 % (11.5-15.5)
[2024-02-26 19:54] LABS: Glucose,Whole Blood 141 mg/dL (70-110)
[2024-02-26] MEDS: SENNOSIDES-DOCUSATE SODIUM 1 EACH TAB PO SCH (19:59)
[2024-02-26] MEDS: ATORVASTATIN 40 MG TAB PO SCH (19:59)
[2024-02-26] MEDS: GABAPENTIN 300 MG CAP PO SCH (19:59)
[2024-02-26] MEDS: MAGNESIUM SULFATE-D5W PMX 1 GM in DEXTROSE/WATER 1 100ML.BAG IVPB SCH (20:03)
[2024-02-26 20:46] LABS: Glucose,Whole Blood 146 mg/dL (70-110)
[2024-02-26] MEDS: METOCLOPRAMIDE 5 MG/ML 2 ML VIAL IVP PRN (21:51)
[2024-02-26 22:04] LABS: Glucose,Whole Blood 173 mg/dL (70-110)
--- NOTE | 2024-02-26 22:19 | P.CONS ---
History of Present Illness - Reason for Consult Consult date: 02/26/24 Medical management, chronic kidney disease, type 2 diabetes Requesting physician: Cristino Samson - Chief Complaint Post quadruple bypass surgery with left atrial appendage - History of Present Illness HISTORY OF PRESENT ILLNESS: 73-year-old with active medical history of obesity, psoriasis, atherosclerotic heart disease postangioplasty in the past, history of arrhythmia post cardioversion and adenosine treatment long time ago, history of recurrent asthma with worsening symptoms has been doing better lately, history of stage IIIa chronic kidney disease, history of type 2 diabetes on multi medication, severe psoriasis with psoriatic arthritis, chronic arthralgia, BPH, obstructive sleep apnea using CPAP, bilateral Fuchs dystrophy of both eyes. Patient found to have significant shortness of breath with atypical anginal symptoms on and off was referred to see cardiology and ended up having heart catheter with Dr. Monique which showed multiple artery blockage. Patient was referred to Dr. Samson for elective quadruple bypass surgery and prepare for it for the last 3 weeks. Ended up having his surgery this morning with 4 bypass PARKS to the LAD, sequential left radial artery graft to the intermediate and first diagonal, saphenous to the PDA and ligation of the left atrial appendage with AtriCure clip. Patient was transferred to the ICU on mechanical ventilation and he was successfully extubated shortly after coming to the intensive care unit. 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 He is awake by the time was seen and alert complaining of leg with pain. REVIEW OF SYSTEMS: CONSTITUTIONAL: Overweight lying in bed waking up from being extubated after open heart surgery complaining of significant pain. EYES: No icterus sclerae, no conjunctivitis. EARS, NOSE, MOUTH, THROAT, and FACE: No sore throat, lymphadenopathy, carotid bruits or deformity. RESPIRATORY: Mild shortness of breath no cough or wheezes. Still have 3 chest tubes. CARDIOVASCULAR: Positive chest pain from incision no palpitation PND or orthopnea. GASTROINTESTINAL: No Abd pain, Nausea or vomiting, no Diarrhea or constipation, No GI Bleed, no distention or masses. GENITOURINARY: Negative for Hematuria or UTI, no kidney stones. Anderson catheter is still in. INTEGUMENT/BREAST: Negative for any muscular injury with mild osteoarthritis.. HEMATOLOGIC/LYMPHATIC: Negative for bleed or purpura. MUSCULOSKELTAL: Negative for Myalgia or arthralgia. NEURLOGICAL: No LOC, Sz or syncope, blurred vision dizziness or abnormality.. BEHAVIORAL/PSYCH: Negative. ENDOCRINE: Negative. PHYSICAL EXAMINATION: General Appearance: Overweight awaking does not look in respiratory distress still complaining of pain. Neck HEENT: Supple, no lymphadenopathy, no thyroid enlargement, no carotid bruits. Lungs: Decreased breath sound bilaterally with fine rhonchi no crackles or wheezes. Chest Wall: Chest wall incision looks fine no bleeding has mediastinal and left pleural tube in place Heart: Regular rate and rhythm, S1, S2 normal, no murmur, rub or gallop. Back: Symmetric, no curvature, ROM normal, no CVA tenderness. Abdomen: Soft, non-tender, bowel sounds active all four quadrants, no masses, no organomegaly. Extremities: Both lower extremity wrapped with Frank no bleeding from the graft harvest site. Left upper extremity again wrapped with Frank wrap with no bleeding. Pulses: 2+ and symmetric. Skin: Skin color, texture, tugor normal, no rashes or lesions. Neurologic: Alert oriented x3 cranial nerves II through XII intact, no motor deficit. ASSESSMENT AND PLAN: _Post four-vessel bypass graft with PARKS to the LAD, sequential left radial to the first diagonal and intermediate and saphenous to the PDA. Doing well postsurgery continue post surgical protocol. _Post mechanical ventilation with extubation after coming to the ICU has been doing on high flow O2. _Type 2 diabetes:Has been on oral hypoglycemic agent, patient will remain on insulin currently resume Tradjenta or Jardiance beside metformin when ready probably will continue long-term insulin with Toujeo or Lantus. _Stage IIIa chronic kidney disease: Has been doing much better so far with hydration and management After surgery creatinine was down to 1.15 with GFR at 64. Continue IV hydration and watch kidney function by tomorrow continue to watch urine output. _Severe asthma: Seeing pulmonary on regular basis has been on Smith along with Ventolin and Pulmicort. _Severe psoriasis: Has been on methotrexate 20 mg a week which has not helped for now. _Obstructive sleep apnea: Provide he is CPAP on regular basis. _Severe lower back pain with chronic neuropathy of the lower extremity: Has been on hydrocodone and gabapentin. _Mild cardiomyopathy mostly systolic/diastolic component: Has been on furosemide, isosorbide, spironolactone and losartan. Will continue medication. _Hyperlipidemia: Remain on atorvastatin 40 mg a day. _Severe GERD/hiatal hernia: Continue on pantoprazole. _Arrhythmia with no sign of A-fib this to have significant PVCs patient end up having left atrial appendage with AtriCure clip to help against having any thrombus in the future with any arrhythmia in the left atrium. _GI prophylaxis: Remain on pantoprazole. _DVT prophylaxis: Patient will be on Lovenox. CODE STATUS: Full code. Dr. Samson thank very much for the consult if I can be any further help you please let me know. Past Medical History Past Medical History: Coronary Artery Disease (CAD), Heart Failure, Diabetes Mellitus, Eye Disorder, GERD/Reflux, Hyperlipidemia, Hypertension, Osteoarth ritis (OA), Supraventricular Tachycardia (SVT) Additional Past Medical History / Comment(s): SOB with activity,chronic constipation, BILAT FUCH'S DYSTROPHY in eyes,CKD stage III,JOSÉ LUIS uses cpap,psoriatic arthritis,degenerative discs disease,neuropathy jyoti legs-worse rt leg,per Dr Samson's H&P-remote hx of cardioversion w/ adenosine approx 20 yrs ago. History of Any Multi-Drug Resistant Organisms: None Reported Past Surgical History: Cholecystectomy, Heart Catheterization, Hernia Repair, Joint Replacement Additional Past Surgical History / Comment(s): Bilateral eye cataract removed, bilateral total knees, total R hip, PAIN CLINIC PROCEDURE, COLONOSCOPY,rt inguinal hernia repair Past Anesthesia/Blood Transfusion Reactions: No Reported Reaction Additional Past Anesthesia/Blood Transfusion Reaction / Comm: no hx blood transfusion Smoking Status: Never smoker - Past Family History Father Family Medical History: CVA/TIA, Diabetes Mellitus Additional Family Medical History / Comment(s): Massive cva at 78yrs Mother Additional Family Medical History / Comment(s): Chronic kidney disease, coronary artery disease, history of myocardial infarction- at age 93 Medications and Allergies Home Medications Medication Instructions Recorded Confirmed Type Aspirin EC [Ecotrin Low Dose] 81 mg PO QAM 12/17/21 02/20/24 History Atorvastatin [Lipitor] 40 mg PO HS 12/17/21 02/20/24 History Spironolactone 12.5 mg PO QAM 12/17/21 02/20/24 History metHOTREXate sodium 20 mg PO MO 12/17/21 02/20/24 History Benralizumab [Fasenra] 1 dose SQ Q56D 06/23/23 02/20/24 History Folic Acid 1 mg PO SUTUWETHFRSA 06/23/23 02/20/24 History Furosemide [Lasix] 40 mg PO QAM 06/23/23 02/20/24 History metFORMIN HCL [Glucophage] 500 mg PO BID 06/23/23 02/20/24 History Clotrimazole/Betamethasone Dip 1 applic TOPICAL DAILY PRN 12/08/23 02/20/24 History [Clotrimazole-Betamethasone Lot] Docusate [Colace] 100 mg PO DAILY 12/08/23 02/20/24 History Econazole 1% Cream [Spectazole] 1 cream TOPICAL DAILY PRN 12/08/23 02/20/24 History Pantoprazole Sodium 40 mg PO BID 12/08/23 02/20/24 History Cholecalciferol (Vitamin D3) 50 mcg PO QAM 01/31/24 02/20/24 History [Vitamin D3 (50 Mcg = 2000 Iu)] Gabapentin 300 mg PO QAM 01/31/24 02/20/24 History Gabapentin 600 mg PO HS 01/31/24 02/20/24 History Isosorbide Mononitrate ER [Imdur] 30 mg PO QAM 01/31/24 02/20/24 History Losartan [Cozaar] 50 mg PO QAM 01/31/24 02/23/24 History Magnesium 400 mg PO QAM 01/31/24 02/20/24 History Brimonidine 0.15% 1 drop BOTH EYES DAILY PRN 02/20/24 02/20/24 History HYDROcodone/APAP 7.5-325MG [Wellman 1 tab PO Q6H PRN 02/20/24 02/20/24 History 7.5-325] Allergies Allergy/AdvReac Type Severity Reaction Status Date / Time empagliflozin Allergy Nausea & Verified 02/20/24 15:01 [From Jardiance] Vomiting semaglutide [From Ozempic] Allergy Nausea & Verified 02/20/24 15:01 Vomiting Physical Exam Vitals: Vital Signs Temp Pulse Pulse Resp BP BP BP 02/26/24 20:15 86 24 02/26/24 20:00 98.6 F 89 24 106/59 02/26/24 19:45 86 20 02/26/24 19:30 89 17 02/26/24 19:15 88 14 02/26/24 19:00 81 18 02/26/24 18:45 88 14 02/26/24 18:30 84 25 H 02/26/24 18:15 81 16 89/47 02/26/24 18:01 79 21 02/26/24 17:45 83 17 02/26/24 17:30 90 17 111/58 02/26/24 17:15 83 22 100/49 02/26/24 17:00 84 24 100/49 02/26/24 16:45 82 24 02/26/24 16:42 84 02/26/24 16:32 80 02/26/24 16:30 80 20 02/26/24 16:15 76 26 H 02/26/24 16:00 97.5 F L 71 24 02/26/24 15:45 65 23 02/26/24 15:41 15 02/26/24 15:30 68 22 02/26/24 15:20 02/26/24 15:15 71 29 H 02/26/24 15:00 96.8 F L 68 26 H 02/26/24 14:45 69 24 02/26/24 14:30 67 15 02/26/24 14:15 66 20 100/49 02/26/24 14:00 66 16 02/26/24 13:45 67 17 02/26/24 13:30 96.3 F L 70 15 02/26/24 13:21 02/26/24 13:15 02/26/24 06:01 98.3 F 81 18 136/75 133/72 Pulse Ox FiO2 02/26/24 20:15 90 L 02/26/24 20:00 96 02/26/24 19:45 97 02/26/24 19:30 98 02/26/24 19:15 99 02/26/24 19:00 97 02/26/24 18:45 97 02/26/24 18:30 97 02/26/24 18:15 98 02/26/24 18:01 98 02/26/24 17:45 98 02/26/24 17:30 95 02/26/24 17:15 95 02/26/24 17:00 94 L 02/26/24 16:45 02/26/24 16:42 02/26/24 16:32 02/26/24 16:30 02/26/24 16:15 02/26/24 16:00 98 02/26/24 15:45 100 02/26/24 15:41 100 02/26/24 15:30 02/26/24 15:20 50 02/26/24 15:15 96 02/26/24 15:00 97 40 02/26/24 14:45 97 02/26/24 14:30 97 02/26/24 14:15 100 02/26/24 14:00 97 50 02/26/24 13:45 100 02/26/24 13:30 100 100 02/26/24 13:21 100 02/26/24 13:15 100 02/26/24 06:01 95 Intake and Output 02/26/24 02/26/24 02/26/24 06:59 14:59 22:59 Intake Total 300 251.030 987.242 Output Total 1027 617 Balance 300 -775.970 370.242 Intake: IV 300 217.0 928.0 ACETAMINOPHEN IV (For NPO 100 ) 1,000 mg In Empty Bag 1 bag @ 400 mls/hr IVPB Q6HR YA Rx#:[id number] Albumin Human 5% 250 ml 250 In Empty Bag 1 bag @ 250 mls/hr IVPB Q1HR PRN Rx#: [id number] CO/CI 30 Diltiazem 125 mg In 10 30 Sodium Chloride 0.9% 100 ml @ 5 MG/HR 5 mls/hr IV .Q24H YA Rx#:[id number] Lactated Ringers 1,000 ml 100 300 @ 50 mls/hr IV .Q20H YA Rx#:[id number] Magnesium Sulfate-D5w Pmx 100 1 gm In Dextrose/Water 1 100ml.bag @ 100 mls/hr IVPB Q1H YA Rx#: [id number] Nitroglycerin-D5w Pmx 50 3.0 9.0 mg In Dextrose/Water 1 250ml.bag @ 5 MCG/MIN 1.5 mls/hr IV .Q24H YA Rx#: [id number] Pressure Bags 9 ceFAZolin 3 gm In Sodium 100 Chloride 0.9% 100 ml @ 100 mls/hr IVPB Q8HR YA Rx#:[id number] Intake, IV Titration 34.030 59.242 Amount DOPamine DRIP 800 mg In 31.173 Dextrose/Water 1 250ml. bag @ 1 MCG/KG/MIN 2.389 mls/hr IV .Q24H YA Rx#: [id number] Insulin Regular 100 unit 2.499 26.159 In Sodium Chloride 0.9% 100 ml @ Per Protocol IV .Q0M YA Rx#:[id number] propofoL 1,000 mg In 31.531 1.910 Empty Bag 1 bag @ Titrate IV .Q0M YA Rx#: [id number] Output: Chest Tube Drainage 135 353 Chest Tube Left Lateral 25 123 Chest Chest Tube Mediastinal 110 230 Urine 292 264 Estimated Blood Loss 600 Other: Voiding Method Indwelling Catheter Indwelling Catheter Weight 127.4 kg ABP, PAP, CO, CI - Last 8 Hours Arterial Blood Pressure 102/50 Arterial Blood Pressure 105/52 Arterial Blood Pressure 98/46 Arterial Blood Pressure 105/47 Arterial Blood Pressure 88/52 Arterial Blood Pressure 105/46 Arterial Blood Pressure 103/48 Arterial Blood Pressure 105/46 Arterial Blood Pressure 102/45 Arterial Blood Pressure 104/45 Arterial Blood Pressure 113/46 Arterial Blood Pressure 124/46 Arterial Blood Pressure 115/44 Arterial Blood Pressure 107/43 Arterial Blood Pressure 100/41 Arterial Blood Pressure 102/43 Arterial Blood Pressure 92/39 Arterial Blood Pressure 86/39 Arterial Blood Pressure 97/45 Arterial Blood Pressure 95/43 Arterial Blood Pressure 97/37 Arterial Blood Pressure 101/50 Arterial Blood Pressure 96/53 Arterial Blood Pressure 100/50 Arterial Blood Pressure 92/46 Arterial Blood Pressure 105/48 Arterial Blood Pressure 106/49 Arterial Blood Pressure 115/50 Pulmonary Artery Pressure 34/18 Pulmonary Artery Pressure 33/16 Pulmonary Artery Pressure 31/14 Pulmonary Artery Pressure 29/13 Pulmonary Artery Pressure 29/14 Pulmonary Artery Pressure 27/11 Pulmonary Artery Pressure 30/13 Pulmonary Artery Pressure 31/14 Pulmonary Artery Pressure 32/15 Pulmonary Artery Pressure 29/11 Pulmonary Artery Pressure 27/9 Pulmonary Artery Pressure 31/14 Pulmonary Artery Pressure 29/8 Pulmonary Artery Pressure 30/9 Pulmonary Artery Pressure 28/10 Pulmonary Artery Pressure 30/9 Pulmonary Artery Pressure 29/10 Pulmonary Artery Pressure 32/14 Pulmonary Artery Pressure 31/14 Pulmonary Artery Pressure 32/14 Pulmonary Artery Pressure 31/10 Pulmonary Artery Pressure 29/15 Pulmonary Artery Pressure 35/20 Pulmonary Artery Pressure 33/17 Pulmonary Artery Pressure 32/17 Pulmonary Artery Pressure 37/19 Pulmonary Artery Pressure 33/17 Pulmonary Artery Pressure 34/14 Cardiac Output 6.5 Cardiac Output 7.2 Cardiac Output 6.3 Cardiac Index 2.8 Cardiac Index 3.1 Cardiac Index 2.7 Results CBC & Chem 7: 02/26/24 18:57 02/26/24 13:21 Labs: Abnormal Lab Results - Last 24 Hours (Table) 02/19/24 02/26/24 02/26/24 Range/Units 09:26 06:23 08:26 WBC (3.8-10.6) k/uL RBC (4.30-5.90) m/uL Hgb (13.0-17.5) gm/dL Hct (39.0-53.0) % MCHC (31.0-37.0) g/dL Plt Count (150-450) k/uL Neutrophils # (1.3-7.7) k/uL Lymphocytes # (1.0-4.8) k/uL Monocytes # (0-1.0) k/uL ABG pH (7.35-7.45) ABG pCO2 46 H (35-45) mmHg ABG pO2 187 H (83-108) mmHg ABG HCO3 27 H (21-25) mmol/L ABG Total CO2 25 H (19-24) mmol/L ABG O2 Saturation 98.6 H (94-97) % ABG Hematocrit (34.0-46.0) % ABG Potassium 5.0 H (3.4-4.5) mmol/L ABG Ionized Calcium (4.5-5.3) mg/dL ABG Glucose 136 H (75-99) mg/dL ABG Lactic Acid 1.9 H (0.5-1.6) mmol/L Hemoglobin 11.0 L (13.0-17.5) gm/dL Chloride (98-107) mmol/L Carbon Dioxide (22-30) mmol/L BUN (9-20) mg/dL Glucose (74-99) mg/dL POC Glucose (mg/dL) 142 H (70-110) mg/dL Total Protein (6.3-8.2) g/dL Albumin (3.5-5.0) g/dL Arterial Blood Potassium 5.0 H (3.4-4.5) mmol/L Arterial Blood Glucose 136 H (75-99) mg/dL Crossmatch See Detail 02/26/24 02/26/24 02/26/24 Range/Units 10:04 10:46 11:49 WBC (3.8-10.6) k/uL RBC (4.30-5.90) m/uL Hgb (13.0-17.5) gm/dL Hct (39.0-53.0) % MCHC (31.0-37.0) g/dL Plt Count (150-450) k/uL Neutrophils # (1.3-7.7) k/uL Lymphocytes # (1.0-4.8) k/uL Monocytes # (0-1.0) k/uL ABG pH (7.35-7.45) ABG pCO2 (35-45) mmHg ABG pO2 264 H 296 H 283 H (83-108) mmHg ABG HCO3 (21-25) mmol/L ABG Total CO2 (19-24) mmol/L ABG O2 Saturation 99.2 H 99.1 H 99.1 H (94-97) % ABG Hematocrit 30 L 30 L 29 L (34.0-46.0) % ABG Potassium (3.4-4.5) mmol/L ABG Ionized Calcium 6.3 H* (4.5-5.3) mg/dL ABG Glucose 143 H 144 H 133 H (75-99) mg/dL ABG Lactic Acid 2.1 H 2.3 H* 3.0 H* (0.5-1.6) mmol/L Hemoglobin 9.9 L 9.9 L 9.5 L (13.0-17.5) gm/dL Chloride (98-107) mmol/L Carbon Dioxide (22-30) mmol/L BUN (9-20) mg/dL Glucose (74-99) mg/dL POC Glucose (mg/dL) (70-110) mg/dL Total Protein (6.3-8.2) g/dL Albumin (3.5-5.0) g/dL Arterial Blood Potassium (3.4-4.5) mmol/L Arterial Blood Glucose 143 H 144 H 133 H (75-99) mg/dL Crossmatch 02/26/24 02/26/24 02/26/24 Range/Units 12:38 13:21 13:21 WBC 16.3 H (3.8-10.6) k/uL RBC 3.38 L (4.30-5.90) m/uL Hgb 10.1 L (13.0-17.5) gm/dL Hct 32.6 L (39.0-53.0) % MCHC (31.0-37.0) g/dL Plt Count 145 L (150-450) k/uL Neutrophils # 14.4 H (1.3-7.7) k/uL Lymphocytes # (1.0-4.8) k/uL Monocytes # (0-1.0) k/uL ABG pH (7.35-7.45) ABG pCO2 (35-45) mmHg ABG pO2 213 H (83-108) mmHg ABG HCO3 (21-25) mmol/L ABG Total CO2 (19-24) mmol/L ABG O2 Saturation 98.6 H (94-97) % ABG Hematocrit 30 L (34.0-46.0) % ABG Potassium (3.4-4.5) mmol/L ABG Ionized Calcium (4.5-5.3) mg/dL ABG Glucose 144 H (75-99) mg/dL ABG Lactic Acid 2.8 H* (0.5-1.6) mmol/L Hemoglobin 9.8 L (13.0-17.5) gm/dL Chloride 110 H (98-107) mmol/L Carbon Dioxide 21 L (22-30) mmol/L BUN 22 H (9-20) mg/dL Glucose 158 H (74-99) mg/dL POC Glucose (mg/dL) (70-110) mg/dL Total Protein 5.3 L (6.3-8.2) g/dL Albumin 3.4 L (3.5-5.0) g/dL Arterial Blood Potassium (3.4-4.5) mmol/L Arterial Blood Glucose 144 H (75-99) mg/dL Crossmatch 02/26/24 02/26/24 02/26/24 Range/Units 13:24 13:38 14:14 WBC (3.8-10.6) k/uL RBC (4.30-5.90) m/uL Hgb (13.0-17.5) gm/dL Hct (39.0-53.0) % MCHC (31.0-37.0) g/dL Plt Count (150-450) k/uL Neutrophils # (1.3-7.7) k/uL Lymphocytes # (1.0-4.8) k/uL Monocytes # (0-1.0) k/uL ABG pH 7.32 L (7.35-7.45) ABG pCO2 (35-45) mmHg ABG pO2 256 H (83-108) mmHg ABG HCO3 (21-25) mmol/L ABG Total CO2 (19-24) mmol/L ABG O2 Saturation 99.9 H (94-97) % ABG Hematocrit (34.0-46.0) % ABG Potassium (3.4-4.5) mmol/L ABG Ionized Calcium (4.5-5.3) mg/dL ABG Glucose (75-99) mg/dL ABG Lactic Acid (0.5-1.6) mmol/L Hemoglobin (13.0-17.5) gm/dL Chloride (98-107) mmol/L Carbon Dioxide (22-30) mmol/L BUN (9-20) mg/dL Glucose (74-99) mg/dL POC Glucose (mg/dL) 167 H 162 H (70-110) mg/dL Total Protein (6.3-8.2) g/dL Albumin (3.5-5.0) g/dL Arterial Blood Potassium (3.4-4.5) mmol/L Arterial Blood Glucose (75-99) mg/dL Crossmatch 02/26/24 02/26/24 02/26/24 Range/Units 15:14 16:05 16:10 WBC 19.2 H (3.8-10.6) k/uL RBC 3.46 L (4.30-5.90) m/uL Hgb 10.4 L (13.0-17.5) gm/dL Hct 33.9 L (39.0-53.0) % MCHC 30.8 L (31.0-37.0) g/dL Plt Count (150-450) k/uL Neutrophils # 17.7 H (1.3-7.7) k/uL Lymphocytes # 0.6 L (1.0-4.8) k/uL Monocytes # (0-1.0) k/uL ABG pH (7.35-7.45) ABG pCO2 (35-45) mmHg ABG pO2 (83-108) mmHg ABG HCO3 (21-25) mmol/L ABG Total CO2 (19-24) mmol/L ABG O2 Saturation (94-97) % ABG Hematocrit (34.0-46.0) % ABG Potassium (3.4-4.5) mmol/L ABG Ionized Calcium (4.5-5.3) mg/dL ABG Glucose (75-99) mg/dL ABG Lactic Acid (0.5-1.6) mmol/L Hemoglobin (13.0-17.5) gm/dL Chloride (98-107) mmol/L Carbon Dioxide (22-30) mmol/L BUN (9-20) mg/dL Glucose (74-99) mg/dL POC Glucose (mg/dL) 176 H 159 H (70-110) mg/dL Total Protein (6.3-8.2) g/dL Albumin (3.5-5.0) g/dL Arterial Blood Potassium (3.4-4.5) mmol/L Arterial Blood Glucose (75-99) mg/dL Crossmatch 02/26/24 02/26/24 02/26/24 Range/Units 17:11 18:02 18:57 WBC 20.0 H (3.8-10.6) k/uL RBC 3.26 L (4.30-5.90) m/uL Hgb 9.7 L (13.0-17.5) gm/dL Hct 31.6 L (39.0-53.0) % MCHC 30.6 L (31.0-37.0) g/dL Plt Count 140 L (150-450) k/uL Neutrophils # 18.4 H (1.3-7.7) k/uL Lymphocytes # 0.3 L (1.0-4.8) k/uL Monocytes # 1.2 H (0-1.0) k/uL ABG pH (7.35-7.45) ABG pCO2 (35-45) mmHg ABG pO2 (83-108) mmHg ABG HCO3 (21-25) mmol/L ABG Total CO2 (19-24) mmol/L ABG O2 Saturation (94-97) % ABG Hematocrit (34.0-46.0) % ABG Potassium (3.4-4.5) mmol/L ABG Ionized Calcium (4.5-5.3) mg/dL ABG Glucose (75-99) mg/dL ABG Lactic Acid (0.5-1.6) mmol/L Hemoglobin (13.0-17.5) gm/dL Chloride (98-107) mmol/L Carbon Dioxide (22-30) mmol/L BUN (9-20) mg/dL Glucose (74-99) mg/dL POC Glucose (mg/dL) 151 H 146 H (70-110) mg/dL Total Protein (6.3-8.2) g/dL Albumin (3.5-5.0) g/dL Arterial Blood Potassium (3.4-4.5) mmol/L Arterial Blood Glucose (75-99) mg/dL Crossmatch 02/26/24 02/26/24 Range/Units 18:58 19:52 WBC (3.8-10.6) k/uL RBC (4.30-5.90) m/uL Hgb (13.0-17.5) gm/dL Hct (39.0-53.0) % MCHC (31.0-37.0) g/dL Plt Count (150-450) k/uL Neutrophils # (1.3-7.7) k/uL Lymphocytes # (1.0-4.8) k/uL Monocytes # (0-1.0) k/uL ABG pH (7.35-7.45) ABG pCO2 (35-45) mmHg ABG pO2 (83-108) mmHg ABG HCO3 (21-25) mmol/L ABG Total CO2 (19-24) mmol/L ABG O2 Saturation (94-97) % ABG Hematocrit (34.0-46.0) % ABG Potassium (3.4-4.5) mmol/L ABG Ionized Calcium (4.5-5.3) mg/dL ABG Glucose (75-99) mg/dL ABG Lactic Acid (0.5-1.6) mmol/L Hemoglobin (13.0-17.5) gm/dL Chloride (98-107) mmol/L Carbon Dioxide (22-30) mmol/L BUN (9-20) mg/dL Glucose (74-99) mg/dL POC Glucose (mg/dL) 143 H 141 H (70-110) mg/dL Total Protein (6.3-8.2) g/dL Albumin (3.5-5.0) g/dL Arterial Blood Potassium (3.4-4.5) mmol/L Arterial Blood Glucose (75-99) mg/dL Crossmatch
[2024-02-26 23:12] LABS: Glucose,Whole Blood 163 mg/dL (70-110)
[2024-02-27 00:16] LABS: Glucose,Whole Blood 143 mg/dL (70-110)
[2024-02-27 01:02] LABS: Glucose,Whole Blood 136 mg/dL (70-110)
[2024-02-27 02:00] LABS: Glucose,Whole Blood 139 mg/dL (70-110)
[2024-02-27 03:00] LABS: Glucose,Whole Blood 122 mg/dL (70-110)
[2024-02-27 03:55] LABS: Glucose,Whole Blood 120 mg/dL (70-110)
[2024-02-27 04:15] LABS: Basophils % (A) 0 %; Eosinophils % (A) 0 %; HCT 31.4 % (39.0-53.0); HGB 9.5 gm/dL (13.0-17.5); Lymphocytes # (A) 0.4 k/uL (1.0-4.8); Lymphocytes % (A) 2 %; MCH 29.5 pg (25.0-35.0); MCHC 30.3 g/dL (31.0-37.0); MCV 97.3 fL (80.0-100.0); Monocytes # (A) 1.4 k/uL (0-1.0); Monocytes % (A) 7 %; Neutrophils # (A) 19.1 k/uL (1.3-7.7); Neutrophils % (A) 91 %; Platelet Count 148 k/uL (150-450); RBC 3.22 m/uL (4.30-5.90); RDW 13.8 % (11.5-15.5); WBC 21.1 k/uL (3.8-10.6)
[2024-02-27 04:18] LABS: Ionized Calcium 4.9 mg/dL (4.5-5.3)
[2024-02-27 04:26] LABS: ALT 35 U/L (4-49); AST 52 U/L (17-59); African American GFR (CKD) 65 (>60 ml/min/1.73 sqM); Albumin 3.2 g/dL (3.5-5.0); Alkaline Phosphatase 41 U/L (38-126); Blood Urea Nitrogen 23 mg/dL (9-20); Calcium 8.7 mg/dL (8.4-10.2); Carbon Dioxide 23 mmol/L (22-30); Glucose 111 mg/dL (74-99); Magnesium 2.2 mg/dL (1.6-2.3); Non-African American GFR(CKD) 57 (>60 ml/min/1.73 sqM); Potassium 4.3 mmol/L (3.5-5.1); Sodium 136 mmol/L (137-145); Total Bilirubin 0.6 mg/dL (0.2-1.3)
[2024-02-27 04:53] LABS: Anion Gap 6 mmol/L; Chloride 107 mmol/L (98-107)
[2024-02-27 04:55] LABS: Glucose,Whole Blood 117 mg/dL (70-110)
[2024-02-27] MEDS ORDERED: ACETAMINOPHEN TAB 325 MG TAB PO PRN (06:23)
[2024-02-27 07:08] LABS: Glucose,Whole Blood 109 mg/dL (70-110)
--- NOTE | 2024-02-27 08:08 | P.PN ---
Subjective Progress Note Date: 02/27/24 Principal diagnosis: Coronary artery disease. Previous medical history of coronary artery disease with previous myocardial infarction, hypertension, hyperlipidemia, cardiomyopathy/chronic heart failure with reduced ejection fraction, diabetes, chronic kidney disease stage III, asthma, obstructive sleep apnea with home CPAP use, SVT status post cardioversion 20 years ago, chronic back pain on chronic narcotics, psoriasis on methotrexate outpatient, GERD, morbid obesity, and l ifelong non-smoker POD #1 off-pump CABG x 4 with PARKS to LAD, sequential left radial artery graft o ff the PARKS to intermediate and first diagonal, saphenous vein graft to PDA, endovascular vein harvest, endovascular left radial artery harvest, ligation of the left atrial appendage with 35mm AtriCure clip Postoperative acute blood loss anemia, expected given hemodilution The patient was seen and examined this morning sitting up in recliner in the intensive care unit in no acute distress but does complain of expected postsurgical pain. He was successfully extubated yesterday at 16:10. Pain control will be difficult as he cannot have Toradol due to his kidney disease, IV narcotics could worsen his hypotension, and patient is already on chronic medications at home for pain. Will make adjustments to his pain control regimen as able. Remains in sinus rhythm to sinus tach, likely due to pain. Blood pressure soft although mean arterial pressure stable. Was on IV Cardizem this morning which has been stopped, continues on IV dopamine. Currently on 2 L nasal cannula with oxygen saturation in the high 90s. Only able to achieve 500 mL on his incentive spirometry. Chest x-ray, labs reviewed. Right internal jugular [place]/Cordis, right radial arterial line, mediastinal/left pleural chest tubes all remain. No other new concerns. Objective - Vital Signs Vital signs: Vital Signs Temp 99.1 F 02/27/24 04:00 Pulse 96 02/27/24 07:15 Resp 23 02/27/24 07:15 BP 82/60 02/27/24 07:15 Pulse Ox 93 L 02/27/24 07:15 FiO2 100 02/26/24 15:41 Intake & Output 02/26/24 02/27/24 02/27/24 18:59 06:59 18:59 Intake Total 475.378 2337.123 204.447 Output Total 1431 1243 50 Balance -457.690 218.123 154.447 Weight 120.4 kg Intake: IV 893.0 1297.0 104 ACETAMINOPHEN IV (For NPO 100 100 ) 1,000 mg In Empty Bag 1 bag @ 400 mls/hr IVPB Q6HR YA Rx#:[id number] Albumin Human 5% 250 ml 250 In Empty Bag 1 bag @ 250 mls/hr IVPB Q1HR PRN Rx#: [id number] CO/CI 120 40 Diltiazem 125 mg In 30 60 5 Sodium Chloride 0.9% 100 ml @ 5 MG/HR 5 mls/hr IV .Q24H YA Rx#:[id number] Lactated Ringers 1,000 ml 300 600 50 @ 20 mls/hr IV .Q24H YA Rx#:[id number] Magnesium Sulfate-D5w Pmx 200 1 gm In Dextrose/Water 1 100ml.bag @ 100 mls/hr IVPB Q1H YA Rx#: [id number] Nitroglycerin-D5w Pmx 50 9.0 18.0 mg In Dextrose/Water 1 250ml.bag @ 5 MCG/MIN 1.5 mls/hr IV .Q24H YA Rx#: [id number] Pressure Bags 99 9 ceFAZolin 3 gm In Sodium 100 100 Chloride 0.9% 100 ml @ 100 mls/hr IVPB Q8HR YA Rx#:[id number] Intake, IV Titration 80.310 164.123 100.447 Amount DOPamine DRIP 800 mg In 31.173 38.937 48.848 Dextrose/Water 1 250ml. bag @ 1 MCG/KG/MIN 2.389 mls/hr IV .Q24H YA Rx#: [id number] Diltiazem 125 mg In 61.833 Sodium Chloride 0.9% 100 ml @ 5 MG/HR 5 mls/hr IV .Q24H YA Rx#:[id number] Insulin Regular 100 unit 15.696 63.353 25.149 In Sodium Chloride 0.9% 100 ml @ Per Protocol IV .Q0M YA Rx#:[id number] Nitroglycerin-D5w Pmx 50 26.45 mg In Dextrose/Water 1 250ml.bag @ 5 MCG/MIN 1.5 mls/hr IV .Q24H YA Rx#: [id number] propofoL 1,000 mg In 33.441 Empty Bag 1 bag @ Titrate IV .Q0M YA Rx#: [id number] Output: Chest Tube Drainage 410 548 20 Chest Tube Left Lateral 110 338 10 Chest Chest Tube Mediastinal 300 210 10 Urine 421 695 30 Estimated Blood Loss 600 Other: Voiding Method Indwelling Catheter Indwelling Catheter ABP, PAP, CO, CI - Last Documented Arterial Blood Pressure 99/42 Pulmonary Artery Pressure 28/8 Cardiac Output 6.3 Cardiac Index 2.7 - Exam CONSTITUTIONAL: Appears somewhat comfortable, cooperative, no acute distress RESPIRATORY: Lungs sounds diminished bilaterally. Respirations even, nonlabored. Currently on 2 L nasal cannula with oxygen saturation 98%. Able to achieve 500 mL on incentive spirometry. Strong cough. CARDIOVASCULAR: S1, S2 present. Regular rate and rhythm, sinus rhythm to sinus tach on telemetry. Sternum stable. Palpable peripheral pulses bilaterally. Trace generalized edema present. No calf pain or tenderness noted. Heart h ugger in place with patient demonstrating appropriate use. Antiembolism stockings, SCDs present. GASTROINTESTINAL: Abdomen soft, nontender, nondistended, obese. Hypoactive bowel sounds present 4 quadrants. Tolerating clear liquids. Positive belching, denies flatus GENITOURINARY: Anderson present draining clear, yellow urine. Output overnight 35-60 mL per hour INTEGUMENTARY: Skin is warm and dry with evidence of good perfusion. Anterior chest incision well approximated and covered with dry intact dressing. Left radial artery harvest site well approximated without redness or drainage. NEUROLOGIC: Cranial nerves II through XII intact MUSKULOSKELETAL: Able to move all extremities, strength equal bilaterally PSYCHIATRIC: Alert and oriented to person place and time, appropriate affect, intact judgment and insight INVASIVE LINES AND TUBES: Mediastinal/left pleural chest tubes present and connected to wall suction, no air leaks present. Mediastinal tube with 70 mL serosanguineous drainage overnight, 500 mL since surgery. Left pleural chest tube with 195 mL serosanguineous drainage overnight, 450 mL since surgery. Right internal jugular [place]/Cordis, right radial arterial line present. Last CO/CI 6.3/2.7, PA /, CVP 4. - Allied health notes Allied health notes reviewed: nursing - Labs CBC & Chem 7: 02/27/24 03:55 02/27/24 03:55 Labs: Abnormal Lab Results - Last 24 Hours (Table) 02/19/24 02/26/24 02/26/24 Range/Units 09:26 08:26 10:04 WBC (3.8-10.6) k/uL RBC (4.30-5.90) m/uL Hgb (13.0-17.5) gm/dL Hct (39.0-53.0) % MCHC (31.0-37.0) g/dL Plt Count (150-450) k/uL Neutrophils # (1.3-7.7) k/uL Lymphocytes # (1.0-4.8) k/uL Monocytes # (0-1.0) k/uL ABG pH (7.35-7.45) ABG pCO2 46 H (35-45) mmHg ABG pO2 187 H 264 H (83-108) mmHg ABG HCO3 27 H (21-25) mmol/L ABG Total CO2 25 H (19-24) mmol/L ABG O2 Saturation 98.6 H 99.2 H (94-97) % ABG Hematocrit 30 L (34.0-46.0) % ABG Potassium 5.0 H (3.4-4.5) mmol/L ABG Ionized Calcium 6.3 H* (4.5-5.3) mg/dL ABG Glucose 136 H 143 H (75-99) mg/dL ABG Lactic Acid 1.9 H 2.1 H (0.5-1.6) mmol/L Hemoglobin 11.0 L 9.9 L (13.0-17.5) gm/dL Sodium (137-145) mmol/L Chloride (98-107) mmol/L Carbon Dioxide (22-30) mmol/L BUN (9-20) mg/dL Creatinine (0.66-1.25) mg/dL Glucose (74-99) mg/dL POC Glucose (mg/dL) (70-110) mg/dL Total Protein (6.3-8.2) g/dL Albumin (3.5-5.0) g/dL Arterial Blood Potassium 5.0 H (3.4-4.5) mmol/L Arterial Blood Glucose 136 H 143 H (75-99) mg/dL Crossmatch See Detail 02/26/24 02/26/24 02/26/24 Range/Units 10:46 11:49 12:38 WBC (3.8-10.6) k/uL RBC (4.30-5.90) m/uL Hgb (13.0-17.5) gm/dL Hct (39.0-53.0) % MCHC (31.0-37.0) g/dL Plt Count (150-450) k/uL Neutrophils # (1.3-7.7) k/uL Lymphocytes # (1.0-4.8) k/uL Monocytes # (0-1.0) k/uL ABG pH (7.35-7.45) ABG pCO2 (35-45) mmHg ABG pO2 296 H 283 H 213 H (83-108) mmHg ABG HCO3 (21-25) mmol/L ABG Total CO2 (19-24) mmol/L ABG O2 Saturation 99.1 H 99.1 H 98.6 H (94-97) % ABG Hematocrit 30 L 29 L 30 L (34.0-46.0) % ABG Potassium (3.4-4.5) mmol/L ABG Ionized Calcium (4.5-5.3) mg/dL ABG Glucose 144 H 133 H 144 H (75-99) mg/dL ABG Lactic Acid 2.3 H* 3.0 H* 2.8 H* (0.5-1.6) mmol/L Hemoglobin 9.9 L 9.5 L 9.8 L (13.0-17.5) gm/dL Sodium (137-145) mmol/L Chloride (98-107) mmol/L Carbon Dioxide (22-30) mmol/L BUN (9-20) mg/dL Creatinine (0.66-1.25) mg/dL Glucose (74-99) mg/dL POC Glucose (mg/dL) (70-110) mg/dL Total Protein (6.3-8.2) g/dL Albumin (3.5-5.0) g/dL Arterial Blood Potassium (3.4-4.5) mmol/L Arterial Blood Glucose 144 H 133 H 144 H (75-99) mg/dL Crossmatch 02/26/24 02/26/24 02/26/24 Range/Units 13:21 13:21 13:24 WBC 16.3 H (3.8-10.6) k/uL RBC 3.38 L (4.30-5.90) m/uL Hgb 10.1 L (13.0-17.5) gm/dL Hct 32.6 L (39.0-53.0) % MCHC (31.0-37.0) g/dL Plt Count 145 L (150-450) k/uL Neutrophils # 14.4 H (1.3-7.7) k/uL Lymphocytes # (1.0-4.8) k/uL Monocytes # (0-1.0) k/uL ABG pH (7.35-7.45) ABG pCO2 (35-45) mmHg ABG pO2 (83-108) mmHg ABG HCO3 (21-25) mmol/L ABG Total CO2 (19-24) mmol/L ABG O2 Saturation (94-97) % ABG Hematocrit (34.0-46.0) % ABG Potassium (3.4-4.5) mmol/L ABG Ionized Calcium (4.5-5.3) mg/dL ABG Glucose (75-99) mg/dL ABG Lactic Acid (0.5-1.6) mmol/L Hemoglobin (13.0-17.5) gm/dL Sodium (137-145) mmol/L Chloride 110 H (98-107) mmol/L Carbon Dioxide 21 L (22-30) mmol/L BUN 22 H (9-20) mg/dL Creatinine (0.66-1.25) mg/dL Glucose 158 H (74-99) mg/dL POC Glucose (mg/dL) 167 H (70-110) mg/dL Total Protein 5.3 L (6.3-8.2) g/dL Albumin 3.4 L (3.5-5.0) g/dL Arterial Blood Potassium (3.4-4.5) mmol/L Arterial Blood Glucose (75-99) mg/dL Crossmatch 02/26/24 02/26/24 02/26/24 Range/Units 13:38 14:14 15:14 WBC (3.8-10.6) k/uL RBC (4.30-5.90) m/uL Hgb (13.0-17.5) gm/dL Hct (39.0-53.0) % MCHC (31.0-37.0) g/dL Plt Count (150-450) k/uL Neutrophils # (1.3-7.7) k/uL Lymphocytes # (1.0-4.8) k/uL Monocytes # (0-1.0) k/uL ABG pH 7.32 L (7.35-7.45) ABG pCO2 (35-45) mmHg ABG pO2 256 H (83-108) mmHg ABG HCO3 (21-25) mmol/L ABG Total CO2 (19-24) mmol/L ABG O2 Saturation 99.9 H (94-97) % ABG Hematocrit (34.0-46.0) % ABG Potassium (3.4-4.5) mmol/L ABG Ionized Calcium (4.5-5.3) mg/dL ABG Glucose (75-99) mg/dL ABG Lactic Acid (0.5-1.6) mmol/L Hemoglobin (13.0-17.5) gm/dL Sodium (137-145) mmol/L Chloride (98-107) mmol/L Carbon Dioxide (22-30) mmol/L BUN (9-20) mg/dL Creatinine (0.66-1.25) mg/dL Glucose (74-99) mg/dL POC Glucose (mg/dL) 162 H 176 H (70-110) mg/dL Total Protein (6.3-8.2) g/dL Albumin (3.5-5.0) g/dL Arterial Blood Potassium (3.4-4.5) mmol/L Arterial Blood Glucose (75-99) mg/dL Crossmatch 02/26/24 02/26/24 02/26/24 Range/Units 16:05 16:10 17:11 WBC 19.2 H (3.8-10.6) k/uL RBC 3.46 L (4.30-5.90) m/uL Hgb 10.4 L (13.0-17.5) gm/dL Hct 33.9 L (39.0-53.0) % MCHC 30.8 L (31.0-37.0) g/dL Plt Count (150-450) k/uL Neutrophils # 17.7 H (1.3-7.7) k/uL Lymphocytes # 0.6 L (1.0-4.8) k/uL Monocytes # (0-1.0) k/uL ABG pH (7.35-7.45) ABG pCO2 (35-45) mmHg ABG pO2 (83-108) mmHg ABG HCO3 (21-25) mmol/L ABG Total CO2 (19-24) mmol/L ABG O2 Saturation (94-97) % ABG Hematocrit (34.0-46.0) % ABG Potassium (3.4-4.5) mmol/L ABG Ionized Calcium (4.5-5.3) mg/dL ABG Glucose (75-99) mg/dL ABG Lactic Acid (0.5-1.6) mmol/L Hemoglobin (13.0-17.5) gm/dL Sodium (137-145) mmol/L Chloride (98-107) mmol/L Carbon Dioxide (22-30) mmol/L BUN (9-20) mg/dL Creatinine (0.66-1.25) mg/dL Glucose (74-99) mg/dL POC Glucose (mg/dL) 159 H 151 H (70-110) mg/dL Total Protein (6.3-8.2) g/dL Albumin (3.5-5.0) g/dL Arterial Blood Potassium (3.4-4.5) mmol/L Arterial Blood Glucose (75-99) mg/dL Crossmatch 02/26/24 02/26/24 02/26/24 Range/Units 18:02 18:57 18:58 WBC 20.0 H (3.8-10.6) k/uL RBC 3.26 L (4.30-5.90) m/uL Hgb 9.7 L (13.0-17.5) gm/dL Hct 31.6 L (39.0-53.0) % MCHC 30.6 L (31.0-37.0) g/dL Plt Count 140 L (150-450) k/uL Neutrophils # 18.4 H (1.3-7.7) k/uL Lymphocytes # 0.3 L (1.0-4.8) k/uL Monocytes # 1.2 H (0-1.0) k/uL ABG pH (7.35-7.45) ABG pCO2 (35-45) mmHg ABG pO2 (83-108) mmHg ABG HCO3 (21-25) mmol/L ABG Total CO2 (19-24) mmol/L ABG O2 Saturation (94-97) % ABG Hematocrit (34.0-46.0) % ABG Potassium (3.4-4.5) mmol/L ABG Ionized Calcium (4.5-5.3) mg/dL ABG Glucose (75-99) mg/dL ABG Lactic Acid (0.5-1.6) mmol/L Hemoglobin (13.0-17.5) gm/dL Sodium (137-145) mmol/L Chloride (98-107) mmol/L Carbon Dioxide (22-30) mmol/L BUN (9-20) mg/dL Creatinine (0.66-1.25) mg/dL Glucose (74-99) mg/dL POC Glucose (mg/dL) 146 H 143 H (70-110) mg/dL Total Protein (6.3-8.2) g/dL Albumin (3.5-5.0) g/dL Arterial Blood Potassium (3.4-4.5) mmol/L Arterial Blood Glucose (75-99) mg/dL Crossmatch 02/26/24 02/26/24 02/26/24 Range/Units 19:52 20:45 22:03 WBC (3.8-10.6) k/uL RBC (4.30-5.90) m/uL Hgb (13.0-17.5) gm/dL Hct (39.0-53.0) % MCHC (31.0-37.0) g/dL Plt Count (150-450) k/uL Neutrophils # (1.3-7.7) k/uL Lymphocytes # (1.0-4.8) k/uL Monocytes # (0-1.0) k/uL ABG pH (7.35-7.45) ABG pCO2 (35-45) mmHg ABG pO2 (83-108) mmHg ABG HCO3 (21-25) mmol/L ABG Total CO2 (19-24) mmol/L ABG O2 Saturation (94-97) % ABG Hematocrit (34.0-46.0) % ABG Potassium (3.4-4.5) mmol/L ABG Ionized Calcium (4.5-5.3) mg/dL ABG Glucose (75-99) mg/dL ABG Lactic Acid (0.5-1.6) mmol/L Hemoglobin (13.0-17.5) gm/dL Sodium (137-145) mmol/L Chloride (98-107) mmol/L Carbon Dioxide (22-30) mmol/L BUN (9-20) mg/dL Creatinine (0.66-1.25) mg/dL Glucose (74-99) mg/dL POC Glucose (mg/dL) 141 H 146 H 173 H (70-110) mg/dL Total Protein (6.3-8.2) g/dL Albumin (3.5-5.0) g/dL Arterial Blood Potassium (3.4-4.5) mmol/L Arterial Blood Glucose (75-99) mg/dL Crossmatch 02/26/24 02/27/24 02/27/24 Range/Units 23:10 00:14 01:00 WBC (3.8-10.6) k/uL RBC (4.30-5.90) m/uL Hgb (13.0-17.5) gm/dL Hct (39.0-53.0) % MCHC (31.0-37.0) g/dL Plt Count (150-450) k/uL Neutrophils # (1.3-7.7) k/uL Lymphocytes # (1.0-4.8) k/uL Monocytes # (0-1.0) k/uL ABG pH (7.35-7.45) ABG pCO2 (35-45) mmHg ABG pO2 (83-108) mmHg ABG HCO3 (21-25) mmol/L ABG Total CO2 (19-24) mmol/L ABG O2 Saturation (94-97) % ABG Hematocrit (34.0-46.0) % ABG Potassium (3.4-4.5) mmol/L ABG Ionized Calcium (4.5-5.3) mg/dL ABG Glucose (75-99) mg/dL ABG Lactic Acid (0.5-1.6) mmol/L Hemoglobin (13.0-17.5) gm/dL Sodium (137-145) mmol/L Chloride (98-107) mmol/L Carbon Dioxide (22-30) mmol/L BUN (9-20) mg/dL Creatinine (0.66-1.25) mg/dL Glucose (74-99) mg/dL POC Glucose (mg/dL) 163 H 143 H 136 H (70-110) mg/dL Total Protein (6.3-8.2) g/dL Albumin (3.5-5.0) g/dL Arterial Blood Potassium (3.4-4.5) mmol/L Arterial Blood Glucose (75-99) mg/dL Crossmatch 02/27/24 02/27/24 02/27/24 Range/Units 01:59 02:57 03:54 WBC (3.8-10.6) k/uL RBC (4.30-5.90) m/uL Hgb (13.0-17.5) gm/dL Hct (39.0-53.0) % MCHC (31.0-37.0) g/dL Plt Count (150-450) k/uL Neutrophils # (1.3-7.7) k/uL Lymphocytes # (1.0-4.8) k/uL Monocytes # (0-1.0) k/uL ABG pH (7.35-7.45) ABG pCO2 (35-45) mmHg ABG pO2 (83-108) mmHg ABG HCO3 (21-25) mmol/L ABG Total CO2 (19-24) mmol/L ABG O2 Saturation (94-97) % ABG Hematocrit (34.0-46.0) % ABG Potassium (3.4-4.5) mmol/L ABG Ionized Calcium (4.5-5.3) mg/dL ABG Glucose (75-99) mg/dL ABG Lactic Acid (0.5-1.6) mmol/L Hemoglobin (13.0-17.5) gm/dL Sodium (137-145) mmol/L Chloride (98-107) mmol/L Carbon Dioxide (22-30) mmol/L BUN (9-20) mg/dL Creatinine (0.66-1.25) mg/dL Glucose (74-99) mg/dL POC Glucose (mg/dL) 139 H 122 H 120 H (70-110) mg/dL Total Protein (6.3-8.2) g/dL Albumin (3.5-5.0) g/dL Arterial Blood Potassium (3.4-4.5) mmol/L Arterial Blood Glucose (75-99) mg/dL Crossmatch 02/27/24 02/27/24 02/27/24 Range/Units 03:55 03:55 04:54 WBC 21.1 H (3.8-10.6) k/uL RBC 3.22 L (4.30-5.90) m/uL Hgb 9.5 L (13.0-17.5) gm/dL Hct 31.4 L (39.0-53.0) % MCHC 30.3 L (31.0-37.0) g/dL Plt Count 148 L (150-450) k/uL Neutrophils # 19.1 H (1.3-7.7) k/uL Lymphocytes # 0.4 L (1.0-4.8) k/uL Monocytes # 1.4 H (0-1.0) k/uL ABG pH (7.35-7.45) ABG pCO2 (35-45) mmHg ABG pO2 (83-108) mmHg ABG HCO3 (21-25) mmol/L ABG Total CO2 (19-24) mmol/L ABG O2 Saturation (94-97) % ABG Hematocrit (34.0-46.0) % ABG Potassium (3.4-4.5) mmol/L ABG Ionized Calcium (4.5-5.3) mg/dL ABG Glucose (75-99) mg/dL ABG Lactic Acid (0.5-1.6) mmol/L Hemoglobin (13.0-17.5) gm/dL Sodium 136 L (137-145) mmol/L Chloride (98-107) mmol/L Carbon Dioxide (22-30) mmol/L BUN 23 H (9-20) mg/dL Creatinine 1.27 H (0.66-1.25) mg/dL Glucose 111 H (74-99) mg/dL POC Glucose (mg/dL) 117 H (70-110) mg/dL Total Protein 5.0 L (6.3-8.2) g/dL Albumin 3.2 L (3.5-5.0) g/dL Arterial Blood Potassium (3.4-4.5) mmol/L Arterial Blood Glucose (75-99) mg/dL Crossmatch - Imaging and Cardiology Chest x-ray: image reviewed Assessment and Plan Assessment: Coronary artery disease with previous myocardial infarction, status post four- vessel off-pump CABG History of hypertension, currently hypotensive on dopamine Hyperlipidemia, treated, cholesterol 93, LDL 17.5, triglycerides 201 Cardiomyopathy/chronic heart failure with reduced ejection fraction, EF 45-50% Diabetes, preoperative hemoglobin A1c 7.3% Chronic kidney disease stage III Asthma Obstructive sleep apnea with home CPAP use History of SVT status post cardioversion 20 years ago Chronic back pain on chronic narcotics Psoriasis on methotrexate outpatient GERD Morbid obesity Lifelong non-smoker, preoperative FEV1 58% of predicted Postoperative acute blood loss anemia, expected given hemodilution Plan: Continue to maximize medical therapy with aspirin, statin, Plavix, beta-cristo. Will increase beta-cristo therapy as tolerated Wean dopamine as tolerated Discontinue IV Cardizem, will add an oral calcium channel cristo for radial artery spasm prophylaxis when able Wean O2 as tolerated. Encourage incentive spirometry use 10 times every hour while awake. Bronchodilators per pulmonology Increase activity, ambulate as tolerated. PT/OT/cardiac rehab consulted Will monitor daily labs and x-rays. Electrolyte replacement per protocol. Avoid nephrotoxins GI/DVT prophylaxis Pain control with current medication regimen. Higher dose of Tylenol was added, Robaxin was added, continue home dose of Neurontin, oxycodone Continue [place]/Cordis for another 24 hours Insulin management per internal medicine, patient should remain on continuous IV insulin for 48 hours, then transition to subcutaneous per protocol Will discontinue mediastinal chest tube. Continue left pleural chest tube for another 24 hours, monitor output Continue Anderson catheter for another 24 hours, continue to monitor strict accu rate intake and output Daily weights More recommendations to follow this patient progresses
[2024-02-27] MEDS ORDERED: bisacodyL 10 MG SUPP RECTAL PRN (09:00)
[2024-02-27] MEDS: METOCLOPRAMIDE 5 MG/ML 2 ML VIAL IVP STA (09:11)
[2024-02-27] MEDS: PANTOPRAZOLE 40 MG/10 ML VIAL IVP SCH (09:12)
[2024-02-27] MEDS: ASPIRIN 325 MG TAB PO SCH (09:13)
[2024-02-27] MEDS: CLOPIDOGREL 75 MG TAB PO SCH (09:13)
[2024-02-27] MEDS: GABAPENTIN 300 MG CAP PO SCH (09:13)
[2024-02-27] MEDS: CHOLECALCIFEROL 25 MCG (1000 IU) TABLET PO SCH (09:13)
[2024-02-27] MEDS: METOPROLOL TARTRATE 12.5 MG TAB PO SCH (09:14)
[2024-02-27] MEDS: FOLIC ACID 1 MG TAB PO SCH (09:14)
[2024-02-27] MEDS: methocarbamoL 500 MG TAB PO SCH (09:29)
[2024-02-27 09:30] LABS: Glucose,Whole Blood 167 mg/dL (70-110)
--- NOTE | 2024-02-27 11:01 | P.PN ---
Subjective Progress Note Date: 02/27/24 This is a 73-year-old male patient with a known history of obstructive sleep apnea, obesity, asthma, psoriasis, chronic back pain. FEV1 value is 60% of predicted. He was recently found to have significant coronary artery disease and was brought in today electively for bypass surgery. He did undergo off-pump coronary artery bypass grafting x 4 with a PARKS to the LAD, sequential left radial artery graft to the intermediate and first diagonal, SVG to the PDA. Ligation of the left atrial appendage with a 35 mm AtriCure clip. He is seen in follow-up in the intensive care unit. He is intubated on the mechanical ventilator. He is currently on pressure support of 10 and CPAP of 5 with 50% FiO2. His sedation is off. Plan is for early extubation protocol. Arterial blood gases revealed a PaO2 of 256, pCO2 of 45 and a pH of 7.32. His cardiac output is 7.2. Cardiac index 3.1. PA pressure 29/15. CVP 11. He is on lactated Ringer's at 50 MLS per hour. A Cardizem drip at 5 mg/h. Nitroglycerin drip at 5 mcg/min, insulin drip at 6 units/h. Dopamine drip at 3 mcg/kg/min. Mediastinal split chest tube and a left pleural chest tubes are in place. Dust x-ray reveals catheters and drains in appropriate position. Postoperative changes. No pneumothorax. White count 16.3. Hemoglobin 10.1. Platelets 145. Sodium 139. Potassium 4.0. Bicarb 21. BUN 22. Creatinine 1.15. Glucose 167. He is initiated on bronchodilators. Heparin for DVT prophylaxis. The patient is seen today February 27, 2024 in follow-up in the intensive care unit. He is currently sitting up in a chair. Awake and alert in no acute distress. Maintaining O2 saturations in the 90s on 3 L/min per nasal cannula. X-ray reveals atelectasis in the lung bases left greater than right. White count 21.1. Hemoglobin 9.5. Platelets 148. Sodium 136. Potassium 4.3. Bicarb 23. BUN 23. Creatinine 1.27. Glucose 111. Cardiac output 8.4. Cardiac index 3.6. PA pressure 26/8. CVP 2. He did receive albumin today. He is currently on dopamine drip at 4 mcg/kg/min. Remains on insulin drip at 8 units/h. Lactated Ringer's at 20 MLS per hour. Heparin for DVT prophylaxis. Remains on bronchodilators. Working well with the incentive spirometer. Objective - Vital Signs Vital signs: Vital Signs Temp 99.5 F 02/27/24 08:00 Pulse 86 02/27/24 10:00 Resp 17 02/27/24 10:00 BP 91/66 02/27/24 10:00 Pulse Ox 93 L 02/27/24 10:00 FiO2 100 02/26/24 15:41 Intake & Output 02/26/24 02/27/24 02/27/24 18:59 06:59 18:59 Intake Total 732.522 3376.123 386.447 Output Total 1431 1243 210 Balance -457.690 218.123 176.447 Weight 120.4 kg Intake: IV 893.0 1297.0 286 ACETAMINOPHEN IV (For NPO 100 100 ) 1,000 mg In Empty Bag 1 bag @ 400 mls/hr IVPB Q6HR YA Rx#:[id number] Albumin Human 5% 250 ml 250 In Empty Bag 1 bag @ 250 mls/hr IVPB Q1HR PRN Rx#: [id number] CO/CI 120 70 Diltiazem 125 mg In 30 60 10 Sodium Chloride 0.9% 100 ml @ 5 MG/HR 5 mls/hr IV .Q24H YA Rx#:[id number] Lactated Ringers 1,000 ml 300 600 170 @ 20 mls/hr IV .Q24H YA Rx#:[id number] Magnesium Sulfate-D5w Pmx 200 1 gm In Dextrose/Water 1 100ml.bag @ 100 mls/hr IVPB Q1H YA Rx#: [id number] Nitroglycerin-D5w Pmx 50 9.0 18.0 mg In Dextrose/Water 1 250ml.bag @ 5 MCG/MIN 1.5 mls/hr IV .Q24H YA Rx#: [id number] Pressure Bags 99 36 ceFAZolin 3 gm In Sodium 100 100 Chloride 0.9% 100 ml @ 100 mls/hr IVPB Q8HR YA Rx#:[id number] Intake, IV Titration 80.310 164.123 100.447 Amount DOPamine DRIP 800 mg In 31.173 38.937 48.848 Dextrose/Water 1 250ml. bag @ 1 MCG/KG/MIN 2.389 mls/hr IV .Q24H YA Rx#: [id number] Diltiazem 125 mg In 61.833 Sodium Chloride 0.9% 100 ml @ 5 MG/HR 5 mls/hr IV .Q24H YA Rx#:[id number] Insulin Regular 100 unit 15.696 63.353 25.149 In Sodium Chloride 0.9% 100 ml @ Per Protocol IV .Q0M YA Rx#:[id number] Nitroglycerin-D5w Pmx 50 26.45 mg In Dextrose/Water 1 250ml.bag @ 5 MCG/MIN 1.5 mls/hr IV .Q24H YA Rx#: [id number] propofoL 1,000 mg In 33.441 Empty Bag 1 bag @ Titrate IV .Q0M YA Rx#: [id number] Output: Chest Tube Drainage 410 548 40 Chest Tube Left Lateral 110 338 30 Chest Chest Tube Mediastinal 300 210 10 Urine 421 695 170 Estimated Blood Loss 600 Other: Voiding Method Indwelling Catheter Indwelling Catheter ABP, PAP, CO, CI - Last Documented Arterial Blood Pressure 89/39 Pulmonary Artery Pressure 28/8 Cardiac Output 8.4 Cardiac Index 3.6 - Exam GENERAL EXAM: Alert, oriented pleasant 73-year-old male, on 3 L nasal cannula, up in a chair, in no apparent distress. HEAD: Normocephalic. EYES: Sluggish reaction of pupils, equal size. NOSE: Clear with pink turbinates. THROAT: Oral endotracheal and gastric tube secured in place. No erythema or exudates. NECK: Right IJ [place]-Rivka catheter in place. No masses, no JVD. CHEST: Sternal dressing dry and intact. Heart hugger in place. Mediastinal and left pleural chest tubes in place. LUNGS: Equal air entry with no crackles, wheeze, rhonchi or dullness. CVS: S1 and S2 normal with no audible murmur, regular rhythm. ABDOMEN: No hepatosplenomegaly,no guarding or rigidity. SPINE: No scoliosis or deformity SKIN: No rashes CENTRAL NERVOUS SYSTEM: Sedated, tone is normal in all 4 extremities. EXTREMITIES: Left upper extremity with Frank wrap in place. Right radial arterial line in place. Frank wraps to the bilateral lower extremities. Sequential compression devices in place. Peripheral pulses are intact. - Labs CBC & Chem 7: 02/27/24 03:55 02/27/24 03:55 Labs: Abnormal Lab Results - Last 24 Hours (Table) 02/19/24 02/26/24 02/26/24 Range/Units 09:26 08:26 10:04 WBC (3.8-10.6) k/uL RBC (4.30-5.90) m/uL Hgb (13.0-17.5) gm/dL Hct (39.0-53.0) % MCHC (31.0-37.0) g/dL Plt Count (150-450) k/uL Neutrophils # (1.3-7.7) k/uL Lymphocytes # (1.0-4.8) k/uL Monocytes # (0-1.0) k/uL ABG pH (7.35-7.45) ABG pCO2 46 H (35-45) mmHg ABG pO2 187 H 264 H (83-108) mmHg ABG HCO3 27 H (21-25) mmol/L ABG Total CO2 25 H (19-24) mmol/L ABG O2 Saturation 98.6 H 99.2 H (94-97) % ABG Hematocrit 30 L (34.0-46.0) % ABG Potassium 5.0 H (3.4-4.5) mmol/L ABG Ionized Calcium 6.3 H* (4.5-5.3) mg/dL ABG Glucose 136 H 143 H (75-99) mg/dL ABG Lactic Acid 1.9 H 2.1 H (0.5-1.6) mmol/L Hemoglobin 11.0 L 9.9 L (13.0-17.5) gm/dL Sodium (137-145) mmol/L Chloride (98-107) mmol/L Carbon Dioxide (22-30) mmol/L BUN (9-20) mg/dL Creatinine (0.66-1.25) mg/dL Glucose (74-99) mg/dL POC Glucose (mg/dL) (70-110) mg/dL Total Protein (6.3-8.2) g/dL Albumin (3.5-5.0) g/dL Arterial Blood Potassium 5.0 H (3.4-4.5) mmol/L Arterial Blood Glucose 136 H 143 H (75-99) mg/dL Crossmatch See Detail 02/26/24 02/26/24 02/26/24 Range/Units 10:46 11:49 12:38 WBC (3.8-10.6) k/uL RBC (4.30-5.90) m/uL Hgb (13.0-17.5) gm/dL Hct (39.0-53.0) % MCHC (31.0-37.0) g/dL Plt Count (150-450) k/uL Neutrophils # (1.3-7.7) k/uL Lymphocytes # (1.0-4.8) k/uL Monocytes # (0-1.0) k/uL ABG pH (7.35-7.45) ABG pCO2 (35-45) mmHg ABG pO2 296 H 283 H 213 H (83-108) mmHg ABG HCO3 (21-25) mmol/L ABG Total CO2 (19-24) mmol/L ABG O2 Saturation 99.1 H 99.1 H 98.6 H (94-97) % ABG Hematocrit 30 L 29 L 30 L (34.0-46.0) % ABG Potassium (3.4-4.5) mmol/L ABG Ionized Calcium (4.5-5.3) mg/dL ABG Glucose 144 H 133 H 144 H (75-99) mg/dL ABG Lactic Acid 2.3 H* 3.0 H* 2.8 H* (0.5-1.6) mmol/L Hemoglobin 9.9 L 9.5 L 9.8 L (13.0-17.5) gm/dL Sodium (137-145) mmol/L Chloride (98-107) mmol/L Carbon Dioxide (22-30) mmol/L BUN (9-20) mg/dL Creatinine (0.66-1.25) mg/dL Glucose (74-99) mg/dL POC Glucose (mg/dL) (70-110) mg/dL Total Protein (6.3-8.2) g/dL Albumin (3.5-5.0) g/dL Arterial Blood Potassium (3.4-4.5) mmol/L Arterial Blood Glucose 144 H 133 H 144 H (75-99) mg/dL Crossmatch 02/26/24 02/26/24 02/26/24 Range/Units 13:21 13:21 13:24 WBC 16.3 H (3.8-10.6) k/uL RBC 3.38 L (4.30-5.90) m/uL Hgb 10.1 L (13.0-17.5) gm/dL Hct 32.6 L (39.0-53.0) % MCHC (31.0-37.0) g/dL Plt Count 145 L (150-450) k/uL Neutrophils # 14.4 H (1.3-7.7) k/uL Lymphocytes # (1.0-4.8) k/uL Monocytes # (0-1.0) k/uL ABG pH (7.35-7.45) ABG pCO2 (35-45) mmHg ABG pO2 (83-108) mmHg ABG HCO3 (21-25) mmol/L ABG Total CO2 (19-24) mmol/L ABG O2 Saturation (94-97) % ABG Hematocrit (34.0-46.0) % ABG Potassium (3.4-4.5) mmol/L ABG Ionized Calcium (4.5-5.3) mg/dL ABG Glucose (75-99) mg/dL ABG Lactic Acid (0.5-1.6) mmol/L Hemoglobin (13.0-17.5) gm/dL Sodium (137-145) mmol/L Chloride 110 H (98-107) mmol/L Carbon Dioxide 21 L (22-30) mmol/L BUN 22 H (9-20) mg/dL Creatinine (0.66-1.25) mg/dL Glucose 158 H (74-99) mg/dL POC Glucose (mg/dL) 167 H (70-110) mg/dL Total Protein 5.3 L (6.3-8.2) g/dL Albumin 3.4 L (3.5-5.0) g/dL Arterial Blood Potassium (3.4-4.5) mmol/L Arterial Blood Glucose (75-99) mg/dL Crossmatch 02/26/24 02/26/24 02/26/24 Range/Units 13:38 14:14 15:14 WBC (3.8-10.6) k/uL RBC (4.30-5.90) m/uL Hgb (13.0-17.5) gm/dL Hct (39.0-53.0) % MCHC (31.0-37.0) g/dL Plt Count (150-450) k/uL Neutrophils # (1.3-7.7) k/uL Lymphocytes # (1.0-4.8) k/uL Monocytes # (0-1.0) k/uL ABG pH 7.32 L (7.35-7.45) ABG pCO2 (35-45) mmHg ABG pO2 256 H (83-108) mmHg ABG HCO3 (21-25) mmol/L ABG Total CO2 (19-24) mmol/L ABG O2 Saturation 99.9 H (94-97) % ABG Hematocrit (34.0-46.0) % ABG Potassium (3.4-4.5) mmol/L ABG Ionized Calcium (4.5-5.3) mg/dL ABG Glucose (75-99) mg/dL ABG Lactic Acid (0.5-1.6) mmol/L Hemoglobin (13.0-17.5) gm/dL Sodium (137-145) mmol/L Chloride (98-107) mmol/L Carbon Dioxide (22-30) mmol/L BUN (9-20) mg/dL Creatinine (0.66-1.25) mg/dL Glucose (74-99) mg/dL POC Glucose (mg/dL) 162 H 176 H (70-110) mg/dL Total Protein (6.3-8.2) g/dL Albumin (3.5-5.0) g/dL Arterial Blood Potassium (3.4-4.5) mmol/L Arterial Blood Glucose (75-99) mg/dL Crossmatch 02/26/24 02/26/24 02/26/24 Range/Units 16:05 16:10 17:11 WBC 19.2 H (3.8-10.6) k/uL RBC 3.46 L (4.30-5.90) m/uL Hgb 10.4 L (13.0-17.5) gm/dL Hct 33.9 L (39.0-53.0) % MCHC 30.8 L (31.0-37.0) g/dL Plt Count (150-450) k/uL Neutrophils # 17.7 H (1.3-7.7) k/uL Lymphocytes # 0.6 L (1.0-4.8) k/uL Monocytes # (0-1.0) k/uL ABG pH (7.35-7.45) ABG pCO2 (35-45) mmHg ABG pO2 (83-108) mmHg ABG HCO3 (21-25) mmol/L ABG Total CO2 (19-24) mmol/L ABG O2 Saturation (94-97) % ABG Hematocrit (34.0-46.0) % ABG Potassium (3.4-4.5) mmol/L ABG Ionized Calcium (4.5-5.3) mg/dL ABG Glucose (75-99) mg/dL ABG Lactic Acid (0.5-1.6) mmol/L Hemoglobin (13.0-17.5) gm/dL Sodium (137-145) mmol/L Chloride (98-107) mmol/L Carbon Dioxide (22-30) mmol/L BUN (9-20) mg/dL Creatinine (0.66-1.25) mg/dL Glucose (74-99) mg/dL POC Glucose (mg/dL) 159 H 151 H (70-110) mg/dL Total Protein (6.3-8.2) g/dL Albumin (3.5-5.0) g/dL Arterial Blood Potassium (3.4-4.5) mmol/L Arterial Blood Glucose (75-99) mg/dL Crossmatch 02/26/24 02/26/24 02/26/24 Range/Units 18:02 18:57 18:58 WBC 20.0 H (3.8-10.6) k/uL RBC 3.26 L (4.30-5.90) m/uL Hgb 9.7 L (13.0-17.5) gm/dL Hct 31.6 L (39.0-53.0) % MCHC 30.6 L (31.0-37.0) g/dL Plt Count 140 L (150-450) k/uL Neutrophils # 18.4 H (1.3-7.7) k/uL Lymphocytes # 0.3 L (1.0-4.8) k/uL Monocytes # 1.2 H (0-1.0) k/uL ABG pH (7.35-7.45) ABG pCO2 (35-45) mmHg ABG pO2 (83-108) mmHg ABG HCO3 (21-25) mmol/L ABG Total CO2 (19-24) mmol/L ABG O2 Saturation (94-97) % ABG Hematocrit (34.0-46.0) % ABG Potassium (3.4-4.5) mmol/L ABG Ionized Calcium (4.5-5.3) mg/dL ABG Glucose (75-99) mg/dL ABG Lactic Acid (0.5-1.6) mmol/L Hemoglobin (13.0-17.5) gm/dL Sodium (137-145) mmol/L Chloride (98-107) mmol/L Carbon Dioxide (22-30) mmol/L BUN (9-20) mg/dL Creatinine (0.66-1.25) mg/dL Glucose (74-99) mg/dL POC Glucose (mg/dL) 146 H 143 H (70-110) mg/dL Total Protein (6.3-8.2) g/dL Albumin (3.5-5.0) g/dL Arterial Blood Potassium (3.4-4.5) mmol/L Arterial Blood Glucose (75-99) mg/dL Crossmatch 02/26/24 02/26/24 02/26/24 Range/Units 19:52 20:45 22:03 WBC (3.8-10.6) k/uL RBC (4.30-5.90) m/uL Hgb (13.0-17.5) gm/dL Hct (39.0-53.0) % MCHC (31.0-37.0) g/dL Plt Count (150-450) k/uL Neutrophils # (1.3-7.7) k/uL Lymphocytes # (1.0-4.8) k/uL Monocytes # (0-1.0) k/uL ABG pH (7.35-7.45) ABG pCO2 (35-45) mmHg ABG pO2 (83-108) mmHg ABG HCO3 (21-25) mmol/L ABG Total CO2 (19-24) mmol/L ABG O2 Saturation (94-97) % ABG Hematocrit (34.0-46.0) % ABG Potassium (3.4-4.5) mmol/L ABG Ionized Calcium (4.5-5.3) mg/dL ABG Glucose (75-99) mg/dL ABG Lactic Acid (0.5-1.6) mmol/L Hemoglobin (13.0-17.5) gm/dL Sodium (137-145) mmol/L Chloride (98-107) mmol/L Carbon Dioxide (22-30) mmol/L BUN (9-20) mg/dL Creatinine (0.66-1.25) mg/dL Glucose (74-99) mg/dL POC Glucose (mg/dL) 141 H 146 H 173 H (70-110) mg/dL Total Protein (6.3-8.2) g/dL Albumin (3.5-5.0) g/dL Arterial Blood Potassium (3.4-4.5) mmol/L Arterial Blood Glucose (75-99) mg/dL Crossmatch 02/26/24 02/27/24 02/27/24 Range/Units 23:10 00:14 01:00 WBC (3.8-10.6) k/uL RBC (4.30-5.90) m/uL Hgb (13.0-17.5) gm/dL Hct (39.0-53.0) % MCHC (31.0-37.0) g/dL Plt Count (150-450) k/uL Neutrophils # (1.3-7.7) k/uL Lymphocytes # (1.0-4.8) k/uL Monocytes # (0-1.0) k/uL ABG pH (7.35-7.45) ABG pCO2 (35-45) mmHg ABG pO2 (83-108) mmHg ABG HCO3 (21-25) mmol/L ABG Total CO2 (19-24) mmol/L ABG O2 Saturation (94-97) % ABG Hematocrit (34.0-46.0) % ABG Potassium (3.4-4.5) mmol/L ABG Ionized Calcium (4.5-5.3) mg/dL ABG Glucose (75-99) mg/dL ABG Lactic Acid (0.5-1.6) mmol/L Hemoglobin (13.0-17.5) gm/dL Sodium (137-145) mmol/L Chloride (98-107) mmol/L Carbon Dioxide (22-30) mmol/L BUN (9-20) mg/dL Creatinine (0.66-1.25) mg/dL Glucose (74-99) mg/dL POC Glucose (mg/dL) 163 H 143 H 136 H (70-110) mg/dL Total Protein (6.3-8.2) g/dL Albumin (3.5-5.0) g/dL Arterial Blood Potassium (3.4-4.5) mmol/L Arterial Blood Glucose (75-99) mg/dL Crossmatch 02/27/24 02/27/24 02/27/24 Range/Units 01:59 02:57 03:54 WBC (3.8-10.6) k/uL RBC (4.30-5.90) m/uL Hgb (13.0-17.5) gm/dL Hct (39.0-53.0) % MCHC (31.0-37.0) g/dL Plt Count (150-450) k/uL Neutrophils # (1.3-7.7) k/uL Lymphocytes # (1.0-4.8) k/uL Monocytes # (0-1.0) k/uL ABG pH (7.35-7.45) ABG pCO2 (35-45) mmHg ABG pO2 (83-108) mmHg ABG HCO3 (21-25) mmol/L ABG Total CO2 (19-24) mmol/L ABG O2 Saturation (94-97) % ABG Hematocrit (34.0-46.0) % ABG Potassium (3.4-4.5) mmol/L ABG Ionized Calcium (4.5-5.3) mg/dL ABG Glucose (75-99) mg/dL ABG Lactic Acid (0.5-1.6) mmol/L Hemoglobin (13.0-17.5) gm/dL Sodium (137-145) mmol/L Chloride (98-107) mmol/L Carbon Dioxide (22-30) mmol/L BUN (9-20) mg/dL Creatinine (0.66-1.25) mg/dL Glucose (74-99) mg/dL POC Glucose (mg/dL) 139 H 122 H 120 H (70-110) mg/dL Total Protein (6.3-8.2) g/dL Albumin (3.5-5.0) g/dL Arterial Blood Potassium (3.4-4.5) mmol/L Arterial Blood Glucose (75-99) mg/dL Crossmatch 02/27/24 02/27/24 02/27/24 Range/Units 03:55 03:55 04:54 WBC 21.1 H (3.8-10.6) k/uL RBC 3.22 L (4.30-5.90) m/uL Hgb 9.5 L (13.0-17.5) gm/dL Hct 31.4 L (39.0-53.0) % MCHC 30.3 L (31.0-37.0) g/dL Plt Count 148 L (150-450) k/uL Neutrophils # 19.1 H (1.3-7.7) k/uL Lymphocytes # 0.4 L (1.0-4.8) k/uL Monocytes # 1.4 H (0-1.0) k/uL ABG pH (7.35-7.45) ABG pCO2 (35-45) mmHg ABG pO2 (83-108) mmHg ABG HCO3 (21-25) mmol/L ABG Total CO2 (19-24) mmol/L ABG O2 Saturation (94-97) % ABG Hematocrit (34.0-46.0) % ABG Potassium (3.4-4.5) mmol/L ABG Ionized Calcium (4.5-5.3) mg/dL ABG Glucose (75-99) mg/dL ABG Lactic Acid (0.5-1.6) mmol/L Hemoglobin (13.0-17.5) gm/dL Sodium 136 L (137-145) mmol/L Chloride (98-107) mmol/L Carbon Dioxide (22-30) mmol/L BUN 23 H (9-20) mg/dL Creatinine 1.27 H (0.66-1.25) mg/dL Glucose 111 H (74-99) mg/dL POC Glucose (mg/dL) 117 H (70-110) mg/dL Total Protein 5.0 L (6.3-8.2) g/dL Albumin 3.2 L (3.5-5.0) g/dL Arterial Blood Potassium (3.4-4.5) mmol/L Arterial Blood Glucose (75-99) mg/dL Crossmatch 02/27/24 Range/Units 09:29 WBC (3.8-10.6) k/uL RBC (4.30-5.90) m/uL Hgb (13.0-17.5) gm/dL Hct (39.0-53.0) % MCHC (31.0-37.0) g/dL Plt Count (150-450) k/uL Neutrophils # (1.3-7.7) k/uL Lymphocytes # (1.0-4.8) k/uL Monocytes # (0-1.0) k/uL ABG pH (7.35-7.45) ABG pCO2 (35-45) mmHg ABG pO2 (83-108) mmHg ABG HCO3 (21-25) mmol/L ABG Total CO2 (19-24) mmol/L ABG O2 Saturation (94-97) % ABG Hematocrit (34.0-46.0) % ABG Potassium (3.4-4.5) mmol/L ABG Ionized Calcium (4.5-5.3) mg/dL ABG Glucose (75-99) mg/dL ABG Lactic Acid (0.5-1.6) mmol/L Hemoglobin (13.0-17.5) gm/dL Sodium (137-145) mmol/L Chloride (98-107) mmol/L Carbon Dioxide (22-30) mmol/L BUN (9-20) mg/dL Creatinine (0.66-1.25) mg/dL Glucose (74-99) mg/dL POC Glucose (mg/dL) 167 H (70-110) mg/dL Total Protein (6.3-8.2) g/dL Albumin (3.5-5.0) g/dL Arterial Blood Potassium (3.4-4.5) mmol/L Arterial Blood Glucose (75-99) mg/dL Crossmatch Assessment and Plan Assessment: Coronary artery disease status post off-pump coronary artery bypass grafting x 4 with a PARKS to the LAD, sequential left radial artery graft to the first diagonal and intermediate, SVG to the PDA. Left atrial appendage ligation with clipping using 35mm atrial cure clip. Postoperative day #1 Obesity Obstructive sleep apnea Gastroesophageal reflux disease History of asthma, mild and intermittent History of psoriatic arthritis Chronic back pain Hyperlipidemia Hypertension Plan: The patient was seen and evaluated Chest x-ray, labs and medications reviewed Continue bronchodilators Continue incentive spirometer Currently on a dopamine drip Currently on an insulin drip We will continue to follow I have personally seen and examined the patient, performed the documentation and the assessment and plan as written. Number of minutes spent on the visit: 10.
[2024-02-27 11:03] LABS: Glucose,Whole Blood 161 mg/dL (70-110)
--- NOTE | 2024-02-27 11:15 | XR ---
EXAMINATION TYPE: XR chest 1V portable DATE OF EXAM: 02/27/2024 Comparison: 02/26/2024 Clinical History: 73-year-old male Post Operative Cardiac Surgery Findings: Right IJ [place]-Rivka catheter tip within the expected right main pulmonary artery. Median sternotomy wi res and post-CABG clips. Left-sided chest tube in place. No appreciable pneumothorax. Patchy bibasila r opacities, left greater than right, slightly increased on the left. Suspect underlying small left p leural effusion. Interval extubation and removal of NG tube. Impression: 1. Post-CABG changes. Suspect increasing small left pleural effusion with adjacent postoperative atel ectasis. 2. There may be residual mild pulmonary vascular congestion.
[2024-02-27 11:19] VITALS: BMI 40.4
--- NOTE | 2024-02-27 11:24 | CONS ---
CONSULTATION HISTORY OF PRESENT ILLNESS: Kar is a 73-year-old gentleman who is status post CABG, postop day #1. He underwent cardiac catheterization by Dr. SUSAN Monique on 02/02/2024, that revealed severe three-vessel coronary artery disease and has been electively brought in for bypass surgery. He underwent off-pump bypass surgery with PARKS to LAD, sequential left radial artery graft of the APRKS to the ramus intermedius and the 1st diagonal branch and saphenous vein graft to the PDA. He also had a left atrial appendage ligation with an AtriClip. The patient is in sinus rhythm extubated, stable, oxygenating well, is somewhat hypotensive and is on IV dopamine. Denied any symptoms other than the musculoskeletal pain related to recent surgery. PAST MEDICAL HISTORY: Significant for, 1. Coronary artery disease. 2. Hypertension. 3. Diabetes. 4. Dyslipidemia. MEDICATIONS: At home included, 1. Losartan 50 mg daily. 2. Metformin 500 b.i.d. 3. Methotrexate. 4. Spironolactone. 5. Protonix. 6. Imdur. 7. Neurontin. 8. Lasix. 9. Lipitor. 10.Aspirin. ALLERGIES: The patient is allergic to Ozempic and Jardiance. FAMILY HISTORY: Negative for premature coronary artery disease. SOCIAL HISTORY: Negative for current smoking, EtOH abuse, or drug abuse. REVIEW OF SYSTEMS: A review of systems has been performed, pertinences are as documented in history of presenting illness. PHYSICAL EXAMINATION: VITAL SIGNS: Heart rate is 86 beats per minute. Blood pressure is 91/66, respiratory rate is 17. NECK: There is no jugular venous distention. CHEST: Reveals diminished air entry at the bases. HEART: Reveals first and second heart sounds and a systolic murmur at the left lower sternal border. ABDOMEN: Soft, nontender. EXTREMITIES: Did not reveal any edema. Peripheral pulses are felt. LABORATORY DATA: Show a hemoglobin of 9.5, potassium is 4.3, creatinine is 1.2. ASSESSMENT AND PLAN: Three-vessel coronary artery disease, status post bypass surgery. PLAN: The patient will continue current medications. He is on dopamine for hypotension and once hypotension resolves, we should be able to start him on beta blockers and SHAHAB inhibitors. He is working on incentive spirometry. MMODL / IJN: [id number] /
[2024-02-27] MEDS: ACETAMINOPHEN TAB 500 MG TAB PO PRN (11:34)
[2024-02-27 12:11] LABS: Glucose,Whole Blood 138 mg/dL (70-110)
[2024-02-27 13:16] LABS: Glucose,Whole Blood 138 mg/dL (70-110)
[2024-02-27 14:05] LABS: Glucose,Whole Blood 141 mg/dL (70-110)
[2024-02-27 15:10] LABS: Glucose,Whole Blood 146 mg/dL (70-110)
[2024-02-27 17:23] LABS: Glucose,Whole Blood 132 mg/dL (70-110)
[2024-02-27 18:54] LABS: Glucose,Whole Blood 171 mg/dL (70-110)
[2024-02-27 20:02] LABS: Glucose,Whole Blood 128 mg/dL (70-110)
[2024-02-27 21:00] LABS: Glucose,Whole Blood 147 mg/dL (70-110)
[2024-02-27 22:04] LABS: Glucose,Whole Blood 124 mg/dL (70-110)
--- NOTE | 2024-02-27 23:16 | P.PN ---
Subjective Progress Note Date: 02/27/24 HISTORY OF PRESENT ILLNESS: 73-year-old with active medical history of obesity, psoriasis, atherosclerotic heart disease postangioplasty in the past, history of arrhythmia post car dioversion and adenosine treatment long time ago, history of recurrent asthma with worsening symptoms has been doing better lately, history of stage IIIa chronic kidney disease, history of type 2 diabetes on multi medication, severe psoriasis with psoriatic arthritis, chronic arthralgia, BPH, obstructive sleep apnea using CPAP, bilateral Fuchs dystrophy of both eyes. Patient found to have significant shortness of breath with atypical anginal symptoms on and off was referred to see cardiology and ended up having heart catheter with Dr. Monique which showed multiple artery blockage. Patient was referred to Dr. Samson for elective quadruple bypass surgery and prepare for it for the last 3 weeks. Ended up having his surgery this morning with 4 bypass PARKS to the LAD, sequential left radial artery graft to the intermediate and first diagonal, saphenous to the PDA and ligation of the left atrial appendage with AtriCure clip. Patient was transferred to the ICU on mechanical ventilation and he was successfully extubated shortly after coming to the intensive care unit. Was placed on higher flow oxygen did not watch on manager monitoring still on dopamine drip along with insulin 5 units an hour and Cardizem drip as well. He is awake by the time was seen and alert complaining of leg with pain. 02/27/2024: Resting comfortably in ICU sleeping in a recliner still have quite a bit of spasm at this point he still complaining of quite a bit of pain discomfort. Apparently becomes slightly with tachycardic require more amiodarone drip last night he is not in A-fib. Remained hemodynamically stable developed to have mild low-grade anemia with hemoglobin of 9.5 but white blood cells up to 21,100 also creatinine is up to 1.2 GFR 30 better than expected. Blood sugars fluctuating but being on insulin drip has Blood sugar below 150. Will start him back on SGLT2 product and long-acting insulin beside Januvia. REVIEW OF SYSTEMS: CONSTITUTIONAL: Overweight lying in bed waking up from being extubated after open heart surgery complaining of significant pain. EYES: No icterus sclerae, no conjunctivitis. EARS, NOSE, MOUTH, THROAT, and FACE: No sore throat, lymphadenopathy, carotid bruits or deformity. RESPIRATORY: Mild shortness of breath no cough or wheezes. Still have 3 chest tubes. CARDIOVASCULAR: Positive chest pain from incision no palpitation PND or orthopnea. GASTROINTESTINAL: No Abd pain, Nausea or vomiting, no Diarrhea or constipation, No GI Bleed, no distention or masses. GENITOURINARY: Negative for Hematuria or UTI, no kidney stones. Anderson catheter is still in. INTEGUMENT/BREAST: Negative for any muscular injury with mild osteoarthritis.. HEMATOLOGIC/LYMPHATIC: Negative for bleed or purpura. MUSCULOSKELTAL: Negative for Myalgia or arthralgia. NEURLOGICAL: No LOC, Sz or syncope, blurred vision dizziness or abnormality.. BEHAVIORAL/PSYCH: Negative. ENDOCRINE: Negative. PHYSICAL EXAMINATION: General Appearance: Overweight awaking does not look in respiratory distress still complaining of pain. Neck HEENT: Supple, no lymphadenopathy, no thyroid enlargement, no carotid bruits. Lungs: Decreased breath sound bilaterally with fine rhonchi no crackles or wheezes. Chest Wall: Chest wall incision looks fine no bleeding has mediastinal and left pleural tube in place Heart: Regular rate and rhythm, S1, S2 normal, no murmur, rub or gallop. Back: Symmetric, no curvature, ROM normal, no CVA tenderness. Abdomen: Soft, non-tender, bowel sounds active all four quadrants, no masses, no organomegaly. Extremities: Both lower extremity wrapped with Frank no bleeding from the graft harvest site. Left upper extremity again wrapped with Frank wrap with no bleeding. Pulses: 2+ and symmetric. Skin: Skin color, texture, tugor normal, no rashes or lesions. Neurologic: Alert oriented x3 cranial nerves II through XII intact, no motor deficit. ASSESSMENT AND PLAN: _Post four-vessel bypass graft with PARKS to the LAD, sequential left radial to the first diagonal and intermediate and saphenous to the PDA. Doing well postsurgery continue post surgical protocol. Still stable doing well remain the ICU today still have 3 chest tube pain still slightly red up but improving. _Post mechanical ventilation with extubation after coming to the ICU has been doing on high flow O2. _Type 2 diabetes: Will continue insulin drip by tomorrow switch patient to his oral hypoglycemic agent with combination of Januvia and Tradjenta will remain on Accu-Cheks and sliding. Respiratory is longer acting insulin. _Stage IIIa chronic kidney disease: Upgraded to stage II chronic kidney disease continue hydration watch symptoms carefully watch his urine output. _Severe asthma: He has seen pulmonary regularly on oxygen does not require any higher flow still on his DuoNeb and Pulmicort. _Severe psoriasis: Has been on methotrexate which will be held for now till patient is out of the hospital. _Obstructive sleep apnea: Provide he is CPAP on regular basis. _Severe lower back pain with chronic neuropathy of the lower extremity: Was post to go for surgery early still on gabapentin and hydrocodone. _Mild cardiomyopathy mostly systolic/diastolic component: Has been on furosemide, isosorbide, spironolactone and losartan. Will continue medication. _Hyperlipidemia: Remain on atorvastatin 40 mg a day. _Severe GERD/hiatal hernia: Continue on pantoprazole. _Arrhythmia with no sign of A-fib this to have significant PVCs patient end up having left atrial appendage with AtriCure clip to help against having any thrombus in the future with any arrhythmia in the left atrium. Debility: Patient will initiate physical therapy in the next 48 hours might benefit from going to inpatient rehab when he is ready. Objective - Vital Signs Vital signs: Vital Signs Temp 99.1 F 02/27/24 04:00 Pulse 92 02/27/24 05:00 Resp 15 02/27/24 05:00 BP 96/68 02/27/24 05:00 Pulse Ox 96 02/27/24 05:00 FiO2 100 02/26/24 15:41 Intake & Output 02/26/24 02/26/24 02/27/24 06:59 18:59 06:59 Intake Total 300 872.603 9004.623 Output Total 1431 1008 Balance 300 -457.690 387.623 Weight 127.4 kg Intake: IV 300 893.0 1231.5 ACETAMINOPHEN IV (For NPO 100 100 ) 1,000 mg In Empty Bag 1 bag @ 400 mls/hr IVPB Q6HR AY Rx#:[id number] Albumin Human 5% 250 ml 250 In Empty Bag 1 bag @ 250 mls/hr IVPB Q1HR PRN Rx#: [id number] CO/CI 120 Diltiazem 125 mg In 30 55 Sodium Chloride 0.9% 100 ml @ 5 MG/HR 5 mls/hr IV .Q24H YA Rx#:[id number] Lactated Ringers 1,000 ml 300 550 @ 50 mls/hr IV .Q20H YA Rx#:[id number] Magnesium Sulfate-D5w Pmx 200 1 gm In Dextrose/Water 1 100ml.bag @ 100 mls/hr IVPB Q1H YA Rx#: [id number] Nitroglycerin-D5w Pmx 50 9.0 16.5 mg In Dextrose/Water 1 250ml.bag @ 5 MCG/MIN 1.5 mls/hr IV .Q24H YA Rx#: [id number] Pressure Bags 90 ceFAZolin 3 gm In Sodium 100 100 Chloride 0.9% 100 ml @ 100 mls/hr IVPB Q8HR YA Rx#:[id number] Intake, IV Titration 80.310 164.123 Amount DOPamine DRIP 800 mg In 31.173 38.937 Dextrose/Water 1 250ml. bag @ 1 MCG/KG/MIN 2.389 mls/hr IV .Q24H YA Rx#: [id number] Diltiazem 125 mg In 61.833 Sodium Chloride 0.9% 100 ml @ 5 MG/HR 5 mls/hr IV .Q24H YA Rx#:[id number] Insulin Regular 100 unit 15.696 63.353 In Sodium Chloride 0.9% 100 ml @ Per Protocol IV .Q0M YA Rx#:[id number] propofoL 1,000 mg In 33.441 Empty Bag 1 bag @ Titrate IV .Q0M YA Rx#: [id number] Output: Chest Tube Drainage 410 438 Chest Tube Left Lateral 110 278 Chest Chest Tube Mediastinal 300 160 Urine 421 570 Estimated Blood Loss 600 Other: Voiding Method Indwelling Catheter Indwelling Catheter ABP, PAP, CO, CI - Last Documented Arterial Blood Pressure 101/46 Pulmonary Artery Pressure 37/17 Cardiac Output 6.9 Cardiac Index 2.9 - Labs CBC & Chem 7: 02/27/24 03:55 02/27/24 03:55 Labs: Abnormal Lab Results - Last 24 Hours (Table) 02/19/24 02/26/24 02/26/24 Range/Units 09:26 06:23 08:26 WBC (3.8-10.6) k/uL RBC (4.30-5.90) m/uL Hgb (13.0-17.5) gm/dL Hct (39.0-53.0) % MCHC (31.0-37.0) g/dL Plt Count (150-450) k/uL Neutrophils # (1.3-7.7) k/uL Lymphocytes # (1.0-4.8) k/uL Monocytes # (0-1.0) k/uL ABG pH (7.35-7.45) ABG pCO2 46 H (35-45) mmHg ABG pO2 187 H (83-108) mmHg ABG HCO3 27 H (21-25) mmol/L ABG Total CO2 25 H (19-24) mmol/L ABG O2 Saturation 98.6 H (94-97) % ABG Hematocrit (34.0-46.0) % ABG Potassium 5.0 H (3.4-4.5) mmol/L ABG Ionized Calcium (4.5-5.3) mg/dL ABG Glucose 136 H (75-99) mg/dL ABG Lactic Acid 1.9 H (0.5-1.6) mmol/L Hemoglobin 11.0 L (13.0-17.5) gm/dL Sodium (137-145) mmol/L Chloride (98-107) mmol/L Carbon Dioxide (22-30) mmol/L BUN (9-20) mg/dL Creatinine (0.66-1.25) mg/dL Glucose (74-99) mg/dL POC Glucose (mg/dL) 142 H (70-110) mg/dL Total Protein (6.3-8.2) g/dL Albumin (3.5-5.0) g/dL Arterial Blood Potassium 5.0 H (3.4-4.5) mmol/L Arterial Blood Glucose 136 H (75-99) mg/dL Crossmatch See Detail 02/26/24 02/26/24 02/26/24 Range/Units 10:04 10:46 11:49 WBC (3.8-10.6) k/uL RBC (4.30-5.90) m/uL Hgb (13.0-17.5) gm/dL Hct (39.0-53.0) % MCHC (31.0-37.0) g/dL Plt Count (150-450) k/uL Neutrophils # (1.3-7.7) k/uL Lymphocytes # (1.0-4.8) k/uL Monocytes # (0-1.0) k/uL ABG pH (7.35-7.45) ABG pCO2 (35-45) mmHg ABG pO2 264 H 296 H 283 H (83-108) mmHg ABG HCO3 (21-25) mmol/L ABG Total CO2 (19-24) mmol/L ABG O2 Saturation 99.2 H 99.1 H 99.1 H (94-97) % ABG Hematocrit 30 L 30 L 29 L (34.0-46.0) % ABG Potassium (3.4-4.5) mmol/L ABG Ionized Calcium 6.3 H* (4.5-5.3) mg/dL ABG Glucose 143 H 144 H 133 H (75-99) mg/dL ABG Lactic Acid 2.1 H 2.3 H* 3.0 H* (0.5-1.6) mmol/L Hemoglobin 9.9 L 9.9 L 9.5 L (13.0-17.5) gm/dL Sodium (137-145) mmol/L Chloride (98-107) mmol/L Carbon Dioxide (22-30) mmol/L BUN (9-20) mg/dL Creatinine (0.66-1.25) mg/dL Glucose (74-99) mg/dL POC Glucose (mg/dL) (70-110) mg/dL Total Protein (6.3-8.2) g/dL Albumin (3.5-5.0) g/dL Arterial Blood Potassium (3.4-4.5) mmol/L Arterial Blood Glucose 143 H 144 H 133 H (75-99) mg/dL Crossmatch 02/26/24 02/26/24 02/26/24 Range/Units 12:38 13:21 13:21 WBC 16.3 H (3.8-10.6) k/uL RBC 3.38 L (4.30-5.90) m/uL Hgb 10.1 L (13.0-17.5) gm/dL Hct 32.6 L (39.0-53.0) % MCHC (31.0-37.0) g/dL Plt Count 145 L (150-450) k/uL Neutrophils # 14.4 H (1.3-7.7) k/uL Lymphocytes # (1.0-4.8) k/uL Monocytes # (0-1.0) k/uL ABG pH (7.35-7.45) ABG pCO2 (35-45) mmHg ABG pO2 213 H (83-108) mmHg ABG HCO3 (21-25) mmol/L ABG Total CO2 (19-24) mmol/L ABG O2 Saturation 98.6 H (94-97) % ABG Hematocrit 30 L (34.0-46.0) % ABG Potassium (3.4-4.5) mmol/L ABG Ionized Calcium (4.5-5.3) mg/dL ABG Glucose 144 H (75-99) mg/dL ABG Lactic Acid 2.8 H* (0.5-1.6) mmol/L Hemoglobin 9.8 L (13.0-17.5) gm/dL Sodium (137-145) mmol/L Chloride 110 H (98-107) mmol/L Carbon Dioxide 21 L (22-30) mmol/L BUN 22 H (9-20) mg/dL Creatinine (0.66-1.25) mg/dL Glucose 158 H (74-99) mg/dL POC Glucose (mg/dL) (70-110) mg/dL Total Protein 5.3 L (6.3-8.2) g/dL Albumin 3.4 L (3.5-5.0) g/dL Arterial Blood Potassium (3.4-4.5) mmol/L Arterial Blood Glucose 144 H (75-99) mg/dL Crossmatch 02/26/24 02/26/24 02/26/24 Range/Units 13:24 13:38 14:14 WBC (3.8-10.6) k/uL RBC (4.30-5.90) m/uL Hgb (13.0-17.5) gm/dL Hct (39.0-53.0) % MCHC (31.0-37.0) g/dL Plt Count (150-450) k/uL Neutrophils # (1.3-7.7) k/uL Lymphocytes # (1.0-4.8) k/uL Monocytes # (0-1.0) k/uL ABG pH 7.32 L (7.35-7.45) ABG pCO2 (35-45) mmHg ABG pO2 256 H (83-108) mmHg ABG HCO3 (21-25) mmol/L ABG Total CO2 (19-24) mmol/L ABG O2 Saturation 99.9 H (94-97) % ABG Hematocrit (34.0-46.0) % ABG Potassium (3.4-4.5) mmol/L ABG Ionized Calcium (4.5-5.3) mg/dL ABG Glucose (75-99) mg/dL ABG Lactic Acid (0.5-1.6) mmol/L Hemoglobin (13.0-17.5) gm/dL Sodium (137-145) mmol/L Chloride (98-107) mmol/L Carbon Dioxide (22-30) mmol/L BUN (9-20) mg/dL Creatinine (0.66-1.25) mg/dL Glucose (74-99) mg/dL POC Glucose (mg/dL) 167 H 162 H (70-110) mg/dL Total Protein (6.3-8.2) g/dL Albumin (3.5-5.0) g/dL Arterial Blood Potassium (3.4-4.5) mmol/L Arterial Blood Glucose (75-99) mg/dL Crossmatch 02/26/24 02/26/24 02/26/24 Range/Units 15:14 16:05 16:10 WBC 19.2 H (3.8-10.6) k/uL RBC 3.46 L (4.30-5.90) m/uL Hgb 10.4 L (13.0-17.5) gm/dL Hct 33.9 L (39.0-53.0) % MCHC 30.8 L (31.0-37.0) g/dL Plt Count (150-450) k/uL Neutrophils # 17.7 H (1.3-7.7) k/uL Lymphocytes # 0.6 L (1.0-4.8) k/uL Monocytes # (0-1.0) k/uL ABG pH (7.35-7.45) ABG pCO2 (35-45) mmHg ABG pO2 (83-108) mmHg ABG HCO3 (21-25) mmol/L ABG Total CO2 (19-24) mmol/L ABG O2 Saturation (94-97) % ABG Hematocrit (34.0-46.0) % ABG Potassium (3.4-4.5) mmol/L ABG Ionized Calcium (4.5-5.3) mg/dL ABG Glucose (75-99) mg/dL ABG Lactic Acid (0.5-1.6) mmol/L Hemoglobin (13.0-17.5) gm/dL Sodium (137-145) mmol/L Chloride (98-107) mmol/L Carbon Dioxide (22-30) mmol/L BUN (9-20) mg/dL Creatinine (0.66-1.25) mg/dL Glucose (74-99) mg/dL POC Glucose (mg/dL) 176 H 159 H (70-110) mg/dL Total Protein (6.3-8.2) g/dL Albumin (3.5-5.0) g/dL Arterial Blood Potassium (3.4-4.5) mmol/L Arterial Blood Glucose (75-99) mg/dL Crossmatch 02/26/24 02/26/24 02/26/24 Range/Units 17:11 18:02 18:57 WBC 20.0 H (3.8-10.6) k/uL RBC 3.26 L (4.30-5.90) m/uL Hgb 9.7 L (13.0-17.5) gm/dL Hct 31.6 L (39.0-53.0) % MCHC 30.6 L (31.0-37.0) g/dL Plt Count 140 L (150-450) k/uL Neutrophils # 18.4 H (1.3-7.7) k/uL Lymphocytes # 0.3 L (1.0-4.8) k/uL Monocytes # 1.2 H (0-1.0) k/uL ABG pH (7.35-7.45) ABG pCO2 (35-45) mmHg ABG pO2 (83-108) mmHg ABG HCO3 (21-25) mmol/L ABG Total CO2 (19-24) mmol/L ABG O2 Saturation (94-97) % ABG Hematocrit (34.0-46.0) % ABG Potassium (3.4-4.5) mmol/L ABG Ionized Calcium (4.5-5.3) mg/dL ABG Glucose (75-99) mg/dL ABG Lactic Acid (0.5-1.6) mmol/L Hemoglobin (13.0-17.5) gm/dL Sodium (137-145) mmol/L Chloride (98-107) mmol/L Carbon Dioxide (22-30) mmol/L BUN (9-20) mg/dL Creatinine (0.66-1.25) mg/dL Glucose (74-99) mg/dL POC Glucose (mg/dL) 151 H 146 H (70-110) mg/dL Total Protein (6.3-8.2) g/dL Albumin (3.5-5.0) g/dL Arterial Blood Potassium (3.4-4.5) mmol/L Arterial Blood Glucose (75-99) mg/dL Crossmatch 02/26/24 02/26/24 02/26/24 Range/Units 18:58 19:52 20:45 WBC (3.8-10.6) k/uL RBC (4.30-5.90) m/uL Hgb (13.0-17.5) gm/dL Hct (39.0-53.0) % MCHC (31.0-37.0) g/dL Plt Count (150-450) k/uL Neutrophils # (1.3-7.7) k/uL Lymphocytes # (1.0-4.8) k/uL Monocytes # (0-1.0) k/uL ABG pH (7.35-7.45) ABG pCO2 (35-45) mmHg ABG pO2 (83-108) mmHg ABG HCO3 (21-25) mmol/L ABG Total CO2 (19-24) mmol/L ABG O2 Saturation (94-97) % ABG Hematocrit (34.0-46.0) % ABG Potassium (3.4-4.5) mmol/L ABG Ionized Calcium (4.5-5.3) mg/dL ABG Glucose (75-99) mg/dL ABG Lactic Acid (0.5-1.6) mmol/L Hemoglobin (13.0-17.5) gm/dL Sodium (137-145) mmol/L Chloride (98-107) mmol/L Carbon Dioxide (22-30) mmol/L BUN (9-20) mg/dL Creatinine (0.66-1.25) mg/dL Glucose (74-99) mg/dL POC Glucose (mg/dL) 143 H 141 H 146 H (70-110) mg/dL Total Protein (6.3-8.2) g/dL Albumin (3.5-5.0) g/dL Arterial Blood Potassium (3.4-4.5) mmol/L Arterial Blood Glucose (75-99) mg/dL Crossmatch 02/26/24 02/26/24 02/27/24 Range/Units 22:03 23:10 00:14 WBC (3.8-10.6) k/uL RBC (4.30-5.90) m/uL Hgb (13.0-17.5) gm/dL Hct (39.0-53.0) % MCHC (31.0-37.0) g/dL Plt Count (150-450) k/uL Neutrophils # (1.3-7.7) k/uL Lymphocytes # (1.0-4.8) k/uL Monocytes # (0-1.0) k/uL ABG pH (7.35-7.45) ABG pCO2 (35-45) mmHg ABG pO2 (83-108) mmHg ABG HCO3 (21-25) mmol/L ABG Total CO2 (19-24) mmol/L ABG O2 Saturation (94-97) % ABG Hematocrit (34.0-46.0) % ABG Potassium (3.4-4.5) mmol/L ABG Ionized Calcium (4.5-5.3) mg/dL ABG Glucose (75-99) mg/dL ABG Lactic Acid (0.5-1.6) mmol/L Hemoglobin (13.0-17.5) gm/dL Sodium (137-145) mmol/L Chloride (98-107) mmol/L Carbon Dioxide (22-30) mmol/L BUN (9-20) mg/dL Creatinine (0.66-1.25) mg/dL Glucose (74-99) mg/dL POC Glucose (mg/dL) 173 H 163 H 143 H (70-110) mg/dL Total Protein (6.3-8.2) g/dL Albumin (3.5-5.0) g/dL Arterial Blood Potassium (3.4-4.5) mmol/L Arterial Blood Glucose (75-99) mg/dL Crossmatch 02/27/24 02/27/24 02/27/24 Range/Units 01:00 01:59 02:57 WBC (3.8-10.6) k/uL RBC (4.30-5.90) m/uL Hgb (13.0-17.5) gm/dL Hct (39.0-53.0) % MCHC (31.0-37.0) g/dL Plt Count (150-450) k/uL Neutrophils # (1.3-7.7) k/uL Lymphocytes # (1.0-4.8) k/uL Monocytes # (0-1.0) k/uL ABG pH (7.35-7.45) ABG pCO2 (35-45) mmHg ABG pO2 (83-108) mmHg ABG HCO3 (21-25) mmol/L ABG Total CO2 (19-24) mmol/L ABG O2 Saturation (94-97) % ABG Hematocrit (34.0-46.0) % ABG Potassium (3.4-4.5) mmol/L ABG Ionized Calcium (4.5-5.3) mg/dL ABG Glucose (75-99) mg/dL ABG Lactic Acid (0.5-1.6) mmol/L Hemoglobin (13.0-17.5) gm/dL Sodium (137-145) mmol/L Chloride (98-107) mmol/L Carbon Dioxide (22-30) mmol/L BUN (9-20) mg/dL Creatinine (0.66-1.25) mg/dL Glucose (74-99) mg/dL POC Glucose (mg/dL) 136 H 139 H 122 H (70-110) mg/dL Total Protein (6.3-8.2) g/dL Albumin (3.5-5.0) g/dL Arterial Blood Potassium (3.4-4.5) mmol/L Arterial Blood Glucose (75-99) mg/dL Crossmatch 02/27/24 02/27/24 02/27/24 Range/Units 03:54 03:55 03:55 WBC 21.1 H (3.8-10.6) k/uL RBC 3.22 L (4.30-5.90) m/uL Hgb 9.5 L (13.0-17.5) gm/dL Hct 31.4 L (39.0-53.0) % MCHC 30.3 L (31.0-37.0) g/dL Plt Count 148 L (150-450) k/uL Neutrophils # 19.1 H (1.3-7.7) k/uL Lymphocytes # 0.4 L (1.0-4.8) k/uL Monocytes # 1.4 H (0-1.0) k/uL ABG pH (7.35-7.45) ABG pCO2 (35-45) mmHg ABG pO2 (83-108) mmHg ABG HCO3 (21-25) mmol/L ABG Total CO2 (19-24) mmol/L ABG O2 Saturation (94-97) % ABG Hematocrit (34.0-46.0) % ABG Potassium (3.4-4.5) mmol/L ABG Ionized Calcium (4.5-5.3) mg/dL ABG Glucose (75-99) mg/dL ABG Lactic Acid (0.5-1.6) mmol/L Hemoglobin (13.0-17.5) gm/dL Sodium 136 L (137-145) mmol/L Chloride (98-107) mmol/L Carbon Dioxide (22-30) mmol/L BUN 23 H (9-20) mg/dL Creatinine 1.27 H (0.66-1.25) mg/dL Glucose 111 H (74-99) mg/dL POC Glucose (mg/dL) 120 H (70-110) mg/dL Total Protein 5.0 L (6.3-8.2) g/dL Albumin 3.2 L (3.5-5.0) g/dL Arterial Blood Potassium (3.4-4.5) mmol/L Arterial Blood Glucose (75-99) mg/dL Crossmatch 02/27/24 Range/Units 04:54 WBC (3.8-10.6) k/uL RBC (4.30-5.90) m/uL Hgb (13.0-17.5) gm/dL Hct (39.0-53.0) % MCHC (31.0-37.0) g/dL Plt Count (150-450) k/uL Neutrophils # (1.3-7.7) k/uL Lymphocytes # (1.0-4.8) k/uL Monocytes # (0-1.0) k/uL ABG pH (7.35-7.45) ABG pCO2 (35-45) mmHg ABG pO2 (83-108) mmHg ABG HCO3 (21-25) mmol/L ABG Total CO2 (19-24) mmol/L ABG O2 Saturation (94-97) % ABG Hematocrit (34.0-46.0) % ABG Potassium (3.4-4.5) mmol/L ABG Ionized Calcium (4.5-5.3) mg/dL ABG Glucose (75-99) mg/dL ABG Lactic Acid (0.5-1.6) mmol/L Hemoglobin (13.0-17.5) gm/dL Sodium (137-145) mmol/L Chloride (98-107) mmol/L Carbon Dioxide (22-30) mmol/L BUN (9-20) mg/dL Creatinine (0.66-1.25) mg/dL Glucose (74-99) mg/dL POC Glucose (mg/dL) 117 H (70-110) mg/dL Total Protein (6.3-8.2) g/dL Albumin (3.5-5.0) g/dL Arterial Blood Potassium (3.4-4.5) mmol/L Arterial Blood Glucose (75-99) mg/dL Crossmatch
[2024-02-28 00:01] LABS: Glucose,Whole Blood 121 mg/dL (70-110)
[2024-02-28] MEDS: IPRATROPIUM-ALBUTEROL 3 ML NEB INHALATION PRN (00:16)
[2024-02-28 02:06] LABS: Glucose,Whole Blood 134 mg/dL (70-110)
[2024-02-28 03:14] LABS: Glucose,Whole Blood 113 mg/dL (70-110)
[2024-02-28] MEDS: PANTOPRAZOLE 40 MG TABLET PO SCH (05:58)
[2024-02-28 06:25] LABS: Glucose,Whole Blood 149 mg/dL (70-110)
[2024-02-28 06:51] LABS: Basophils % (A) 0 %; Eosinophils % (A) 0 %; HGB 8.6 gm/dL (13.0-17.5); Lymphocytes # (A) 1.1 k/uL (1.0-4.8); Lymphocytes % (A) 8 %; MCHC 30.6 g/dL (31.0-37.0); MCV 97.9 fL (80.0-100.0); Mean Platelet Volume 10.3; Monocytes # (A) 1.1 k/uL (0-1.0); Monocytes % (A) 7 %; Neutrophils % (A) 84 %; Platelet Count 136 k/uL (150-450); RBC 2.86 m/uL (4.30-5.90); RDW 14.1 % (11.5-15.5); WBC 14.4 k/uL (3.8-10.6)
[2024-02-28 07:02] LABS: Glucose,Whole Blood 156 mg/dL (70-110)
[2024-02-28 07:04] LABS: Ionized Calcium 4.9 mg/dL (4.5-5.3)
[2024-02-28 07:14] LABS: ALT 19 U/L (4-49); AST 43 U/L (17-59); African American GFR (CKD) 65 (>60 ml/min/1.73 sqM); Albumin 3.4 g/dL (3.5-5.0); Alkaline Phosphatase 43 U/L (38-126); Anion Gap 9 mmol/L; Blood Urea Nitrogen 20 mg/dL (9-20); Calcium 8.7 mg/dL (8.4-10.2); Carbon Dioxide 20 mmol/L (22-30); Chloride 105 mmol/L (98-107); Glucose 139 mg/dL (74-99); Non-African American GFR(CKD) 57 (>60 ml/min/1.73 sqM); Potassium 4.3 mmol/L (3.5-5.1); Sodium 134 mmol/L (137-145); Total Protein 5.4 g/dL (6.3-8.2)
--- NOTE | 2024-02-28 07:33 | XR ---
EXAMINATION TYPE: XR chest 1V portable DATE OF EXAM: 02/28/2024 HISTORY: Post Operative Cardiac Surgery COMPARISON: 02/27/2024 TECHNIQUE: Single view of the chest is submitted. FINDINGS: [place] catheter is unchanged in position. Left-sided chest tube without pneumothorax. Scattered pl eural-parenchymal opacities. The heart is stable. Left atrial appendage clip and median sternotomy wi res. Hilar and mediastinal structures are within normal limits. Degenerative changes are seen of the dorsal spine. IMPRESSION: 1. Post cardiac surgery changes.
[2024-02-28 08:36] LABS: Glucose,Whole Blood 143 mg/dL (70-110)
--- NOTE | 2024-02-28 08:51 | P.PN ---
Subjective Progress Note Date: 02/28/24 Principal diagnosis: Coronary artery disease. Previous medical history of coronary artery disease with previous myocardial infarction, hypertension, hyperlipidemia, cardiomyopathy/chronic heart failure with reduced ejection fraction, diabetes, chronic kidney disease stage III, asthma, obstructive sleep apnea with home CPAP use, SVT status post cardioversion 20 years ago, chronic back pain on chronic narcotics, psoriasis on methotrexate outpatient, GERD, morbid obesity, and l ifelong non-smoker POD #2 off-pump CABG x 4 with PARKS to LAD, sequential left radial artery graft o ff the PARKS to intermediate and first diagonal, saphenous vein graft to PDA, endovascular vein harvest, endovascular left radial artery harvest, ligation of the left atrial appendage with 35mm AtriCure clip Postoperative acute blood loss anemia, expected given hemodilution The patient was seen and examined this morning with Dr. Samson sitting up in recliner in the intensive care unit in no acute distress but does complain of expected postsurgical pain, he does state pain is a bit better after removal of mediastinal chest tube yesterday. Remains in sinus rhythm to sinus tach. Blood pressure soft although mean arterial pressure stable. Dopamine was stopped overnight due to tachycardia, blood pressure was stable at that time, and then this morning his systolic pressure was back in the 90s although his mean arterial pressure was stable and he was restarted on low-dose dopamine. Currently on 2 L nasal cannula with oxygen saturation in the high 90s. Doing better on incentive spirometry and able to achieve 1250 mL. Chest x-ray, labs reviewed. Right internal jugular Mecca/Cordis, left pleural chest tube remains. Patient asking to go to inpatient rehab at discharge, discussed with the patient that once all of his lines and tubes are out he may feel good enough to go home. No other new concerns. Objective - Vital Signs Vital signs: Vital Signs Temp 100.4 F H 02/28/24 04:00 Pulse 96 02/28/24 07:00 Resp 17 02/28/24 07:00 BP 80/54 02/28/24 07:00 Pulse Ox 99 02/28/24 07:00 FiO2 100 02/26/24 15:41 Intake & Output 02/27/24 02/28/24 02/28/24 18:59 06:59 18:59 Intake Total 1464.503 699.308 44.416 Output Total 340 695 0 Balance 1124.503 4.308 44.416 Weight 120.4 kg 132.4 kg Intake: IV 968 378 26 Albumin Human 5% 500 ml @ 250 Per Protocol IVPB ONCE ONE Rx#:[id number] CO/CI 110 80 Diltiazem 125 mg In 10 Sodium Chloride 0.9% 100 ml @ 5 MG/HR 5 mls/hr IV .Q24H YA Rx#:[id number] Lactated Ringers 1,000 ml 490 220 20 @ 20 mls/hr IV .Q24H YA Rx#:[id number] Pressure Bags 108 78 6 Intake, IV Titration 256.503 81.308 18.416 Amount DOPamine DRIP 800 mg In 144.758 17.121 Dextrose/Water 1 250ml. bag @ 1 MCG/KG/MIN 2.389 mls/hr IV .Q24H YA Rx#: [id number] Insulin Regular 100 unit 85.295 64.187 18.416 In Sodium Chloride 0.9% 100 ml @ Per Protocol IV .Q0M YA Rx#:[id number] Nitroglycerin-D5w Pmx 50 26.45 mg In Dextrose/Water 1 250ml.bag @ 5 MCG/MIN 1.5 mls/hr IV .Q24H YA Rx#: [id number] Oral 240 240 Output: Chest Tube Drainage 100 95 0 Chest Tube Left Lateral 90 95 0 Chest Chest Tube Mediastinal 10 Urine 240 300 0 Post Void Residual 300 Other: Voiding Method Toilet Urinal # Voids 1 ABP, PAP, CO, CI - Last Documented Arterial Blood Pressure 90/47 Pulmonary Artery Pressure 36/22 Cardiac Output 6.6 Cardiac Index 2.8 - Exam CONSTITUTIONAL: Appears somewhat comfortable, cooperative, no acute distress RESPIRATORY: Lungs sounds diminished bilaterally. Respirations even, nonlabored. Currently on 2 L nasal cannula with oxygen saturation 96%. Able to achieve 1250 mL on incentive spirometry. Strong cough. CARDIOVASCULAR: S1, S2 present. Regular rate and rhythm, sinus rhythm to sinus tach on telemetry. Sternum stable. Palpable peripheral pulses bilaterally. Trace generalized edema present. No calf pain or tenderness noted. Heart hugger in place with patient demonstrating appropriate use. Antiembolism stoc kings, SCDs present. GASTROINTESTINAL: Abdomen soft, nontender, nondistended, obese. Hypoactive shon wel sounds present 4 quadrants. Tolerating diet. Positive belching, denies flatus GENITOURINARY: Anderson discontinued, continues to void INTEGUMENTARY: Skin is warm and dry with evidence of good perfusion. Anterior chest incision well approximated and covered with dry intact dressing. Left radial artery harvest site well approximated without redness or drainage. NEUROLOGIC: Cranial nerves II through XII intact MUSKULOSKELETAL: Able to move all extremities, strength equal bilaterally PSYCHIATRIC: Alert and oriented to person place and time, appropriate affect, intact judgment and insight INVASIVE LINES AND TUBES: Left pleural chest tubes present and connected to wall suction, no air leaks present, 140 mL serosanguineous drainage overnight, 250 mL in the last 24 hours. Right internal jugular Mecca/Cordis present. Last CO/CI 6.6/2.8, PA 35/21, CVP 13. - Allied health notes Allied health notes reviewed: nursing - Labs CBC & Chem 7: 02/28/24 06:15 02/28/24 06:15 Labs: Abnormal Lab Results - Last 24 Hours (Table) 02/27/24 02/27/24 02/27/24 Range/Units 09:29 11:01 12:10 WBC (3.8-10.6) k/uL RBC (4.30-5.90) m/uL Hgb (13.0-17.5) gm/dL Hct (39.0-53.0) % MCHC (31.0-37.0) g/dL Plt Count (150-450) k/uL Neutrophils # (1.3-7.7) k/uL Monocytes # (0-1.0) k/uL Sodium (137-145) mmol/L Carbon Dioxide (22-30) mmol/L Creatinine (0.66-1.25) mg/dL Glucose (74-99) mg/dL POC Glucose (mg/dL) 167 H 161 H 138 H (70-110) mg/dL Total Protein (6.3-8.2) g/dL Albumin (3.5-5.0) g/dL 02/27/24 02/27/24 02/27/24 Range/Units 13:15 14:04 15:09 WBC (3.8-10.6) k/uL RBC (4.30-5.90) m/uL Hgb (13.0-17.5) gm/dL Hct (39.0-53.0) % MCHC (31.0-37.0) g/dL Plt Count (150-450) k/uL Neutrophils # (1.3-7.7) k/uL Monocytes # (0-1.0) k/uL Sodium (137-145) mmol/L Carbon Dioxide (22-30) mmol/L Creatinine (0.66-1.25) mg/dL Glucose (74-99) mg/dL POC Glucose (mg/dL) 138 H 141 H 146 H (70-110) mg/dL Total Protein (6.3-8.2) g/dL Albumin (3.5-5.0) g/dL 02/27/24 02/27/24 02/27/24 Range/Units 17:12 18:53 20:01 WBC (3.8-10.6) k/uL RBC (4.30-5.90) m/uL Hgb (13.0-17.5) gm/dL Hct (39.0-53.0) % MCHC (31.0-37.0) g/dL Plt Count (150-450) k/uL Neutrophils # (1.3-7.7) k/uL Monocytes # (0-1.0) k/uL Sodium (137-145) mmol/L Carbon Dioxide (22-30) mmol/L Creatinine (0.66-1.25) mg/dL Glucose (74-99) mg/dL POC Glucose (mg/dL) 132 H 171 H 128 H (70-110) mg/dL Total Protein (6.3-8.2) g/dL Albumin (3.5-5.0) g/dL 02/27/24 02/27/24 02/27/24 Range/Units 20:59 22:02 23:59 WBC (3.8-10.6) k/uL RBC (4.30-5.90) m/uL Hgb (13.0-17.5) gm/dL Hct (39.0-53.0) % MCHC (31.0-37.0) g/dL Plt Count (150-450) k/uL Neutrophils # (1.3-7.7) k/uL Monocytes # (0-1.0) k/uL Sodium (137-145) mmol/L Carbon Dioxide (22-30) mmol/L Creatinine (0.66-1.25) mg/dL Glucose (74-99) mg/dL POC Glucose (mg/dL) 147 H 124 H 121 H (70-110) mg/dL Total Protein (6.3-8.2) g/dL Albumin (3.5-5.0) g/dL 02/28/24 02/28/24 02/28/24 Range/Units 02:05 03:13 06:15 WBC 14.4 H (3.8-10.6) k/uL RBC 2.86 L (4.30-5.90) m/uL Hgb 8.6 L (13.0-17.5) gm/dL Hct 28.0 L (39.0-53.0) % MCHC 30.6 L (31.0-37.0) g/dL Plt Count 136 L (150-450) k/uL Neutrophils # 12.0 H (1.3-7.7) k/uL Monocytes # 1.1 H (0-1.0) k/uL Sodium (137-145) mmol/L Carbon Dioxide (22-30) mmol/L Creatinine (0.66-1.25) mg/dL Glucose (74-99) mg/dL POC Glucose (mg/dL) 134 H 113 H (70-110) mg/dL Total Protein (6.3-8.2) g/dL Albumin (3.5-5.0) g/dL 02/28/24 02/28/24 02/28/24 Range/Units 06:15 06:23 07:01 WBC (3.8-10.6) k/uL RBC (4.30-5.90) m/uL Hgb (13.0-17.5) gm/dL Hct (39.0-53.0) % MCHC (31.0-37.0) g/dL Plt Count (150-450) k/uL Neutrophils # (1.3-7.7) k/uL Monocytes # (0-1.0) k/uL Sodium 134 L (137-145) mmol/L Carbon Dioxide 20 L (22-30) mmol/L Creatinine 1.27 H (0.66-1.25) mg/dL Glucose 139 H (74-99) mg/dL POC Glucose (mg/dL) 149 H 156 H (70-110) mg/dL Total Protein 5.4 L (6.3-8.2) g/dL Albumin 3.4 L (3.5-5.0) g/dL 02/28/24 Range/Units 08:35 WBC (3.8-10.6) k/uL RBC (4.30-5.90) m/uL Hgb (13.0-17.5) gm/dL Hct (39.0-53.0) % MCHC (31.0-37.0) g/dL Plt Count (150-450) k/uL Neutrophils # (1.3-7.7) k/uL Monocytes # (0-1.0) k/uL Sodium (137-145) mmol/L Carbon Dioxide (22-30) mmol/L Creatinine (0.66-1.25) mg/dL Glucose (74-99) mg/dL POC Glucose (mg/dL) 143 H (70-110) mg/dL Total Protein (6.3-8.2) g/dL Albumin (3.5-5.0) g/dL - Imaging and Cardiology Chest x-ray: report reviewed, image reviewed Assessment and Plan Assessment: Coronary artery disease with previous myocardial infarction, status post four- vessel off-pump CABG History of hypertension, currently hypotensive on dopamine Hyperlipidemia, treated, cholesterol 93, LDL 17.5, triglycerides 201 Cardiomyopathy/chronic heart failure with reduced ejection fraction, EF 45-50% Diabetes, preoperative hemoglobin A1c 7.3% Chronic kidney disease stage III Asthma Obstructive sleep apnea with home CPAP use History of SVT status post cardioversion 20 years ago Chronic back pain on chronic narcotics Psoriasis on methotrexate outpatient GERD Morbid obesity Lifelong non-smoker, preoperative FEV1 58% of predicted Postoperative acute blood loss anemia, expected given hemodilution Plan: Continue to maximize medical therapy with aspirin, statin, Plavix, beta-cristo. Will increase beta-cristo therapy as tolerated Discontinue dopamine. Will start midodrine to support blood pressure Will add an oral calcium channel cristo for radial artery spasm prophylaxis when able Wean O2 as tolerated. Encourage incentive spirometry use 10 times every hour while awake. Bronchodilators per pulmonology Increase activity, ambulate as tolerated. PT/OT/cardiac rehab consulted Will monitor daily labs and x-rays. Electrolyte replacement per protocol. Avoid nephrotoxins. Will give 20 mg IV push Lasix today GI/DVT prophylaxis Pain control with current medication regimen. Discontinue Mecca/Cordis Insulin management per internal medicine Will discontinue left pleural chest tube Continue to monitor strict accurate intake and output Daily weights Once all lines and tubes are out will consult PM&R for possibility of inpatient rehab at discharge More recommendations to follow this patient progresses
[2024-02-28] MEDS: MIDODRINE 5 MG TAB PO SCH (09:15)
[2024-02-28] MEDS: MAGNESIUM HYDROXIDE 2,400 MG/30 ML CUP PO PRN (09:16)
[2024-02-28] MEDS: FUROSEMIDE 10 MG/ML 2 ML VIAL IV ONE (09:16)
[2024-02-28] MEDS: LINAGLIPTIN 5 MG TABLET PO SCH (09:17)
[2024-02-28] MEDS: INSULIN DETEMIR (LEVEMIR) 100 UNIT/ML SYR SQ SCH (09:17)
[2024-02-28] MEDS ORDERED: methocarbamoL 500 MG TAB PO PRN (10:04)
[2024-02-28] MEDS ORDERED: ACETAMINOPHEN TAB 325 MG TAB PO PRN (10:04)
[2024-02-28 11:16] LABS: Glucose,Whole Blood 139 mg/dL (70-110)
--- NOTE | 2024-02-28 11:38 | P.PN ---
Subjective Progress Note Date: 02/28/24 This is a 73-year-old male patient with a known history of obstructive sleep apnea, obesity, asthma, psoriasis, chronic back pain. FEV1 value is 60% of predicted. He was recently found to have significant coronary artery disease and was brought in today electively for bypass surgery. He did undergo off-pump coronary artery bypass grafting x 4 with a PARKS to the LAD, sequential left radial artery graft to the intermediate and first diagonal, SVG to the PDA. Ligation of the left atrial appendage with a 35 mm AtriCure clip. He is seen in follow-up in the intensive care unit. He is intubated on the mechanical ventilator. He is currently on pressure support of 10 and CPAP of 5 with 50% FiO2. His sedation is off. Plan is for early extubation protocol. Arterial blood gases revealed a PaO2 of 256, pCO2 of 45 and a pH of 7.32. His cardiac output is 7.2. Cardiac index 3.1. PA pressure 29/15. CVP 11. He is on lactated Ringer's at 50 MLS per hour. A Cardizem drip at 5 mg/h. Nitroglycerin drip at 5 mcg/min, insulin drip at 6 units/h. Dopamine drip at 3 mcg/kg/min. Mediastinal split chest tube and a left pleural chest tubes are in place. Dust x-ray reveals catheters and drains in appropriate position. Postoperative changes. No pneumothorax. White count 16.3. Hemoglobin 10.1. Platelets 145. Sodium 139. Potassium 4.0. Bicarb 21. BUN 22. Creatinine 1.15. Glucose 167. He is initiated on bronchodilators. Heparin for DVT prophylaxis. The patient is seen today February 27, 2024 in follow-up in the intensive care unit. He is currently sitting up in a chair. Awake and alert in no acute distress. Maintaining O2 saturations in the 90s on 3 L/min per nasal cannula. X-ray reveals atelectasis in the lung bases left greater than right. White count 21.1. Hemoglobin 9.5. Platelets 148. Sodium 136. Potassium 4.3. Bicarb 23. BUN 23. Creatinine 1.27. Glucose 111. Cardiac output 8.4. Cardiac index 3.6. PA pressure 26/8. CVP 2. He did receive albumin today. He is currently on dopamine drip at 4 mcg/kg/min. Remains on insulin drip at 8 units/h. Lactated Ringer's at 20 MLS per hour. Heparin for DVT prophylaxis. Remains on bronchodilators. Working well with the incentive spirometer. The patient is seen today February 28, 2024 in follow-up in the intensive care unit. He is awake and alert in no acute distress. He is currently sitting up in a chair at the bedside. He is maintaining good O2 saturations in the 90s on 2 L/min per nasal cannula. Continues to work well with the incentive spirometer. Chest x-ray reveals postsurgical changes. No evidence of pneumothorax. Heparin for DVT prophylaxis. White count 14.4. Hemoglobin 8.6. Platelets 136. Sodium 134. Potassium 4.3. Bicarb 20. BUN 20. Creatinine 1.27. Glucose 139. Objective - Vital Signs Vital signs: Vital Signs Temp 98.3 F 02/28/24 08:15 Pulse 87 02/28/24 11:00 Resp 17 02/28/24 11:00 BP 89/63 02/28/24 11:00 Pulse Ox 100 02/28/24 11:00 FiO2 100 02/26/24 15:41 Intake & Output 02/27/24 02/28/24 02/28/24 18:59 06:59 18:59 Intake Total 1464.503 699.308 228.416 Output Total 340 695 710 Balance 1124.503 4.308 -481.584 Weight 120.4 kg 132.4 kg Intake: IV 968 378 92 Albumin Human 5% 500 ml @ 250 Per Protocol IVPB ONCE ONE Rx#:[id number] CO/CI 110 80 Diltiazem 125 mg In 10 Sodium Chloride 0.9% 100 ml @ 5 MG/HR 5 mls/hr IV .Q24H YA Rx#:[id number] Lactated Ringers 1,000 ml 490 220 80 @ 20 mls/hr IV .Q24H YA Rx#:[id number] Pressure Bags 108 78 12 Intake, IV Titration 256.503 81.308 18.416 Amount DOPamine DRIP 800 mg In 144.758 17.121 Dextrose/Water 1 250ml. bag @ 1 MCG/KG/MIN 2.389 mls/hr IV .Q24H YA Rx#: [id number] Insulin Regular 100 unit 85.295 64.187 18.416 In Sodium Chloride 0.9% 100 ml @ Per Protocol IV .Q0M YA Rx#:[id number] Nitroglycerin-D5w Pmx 50 26.45 mg In Dextrose/Water 1 250ml.bag @ 5 MCG/MIN 1.5 mls/hr IV .Q24H YA Rx#: [id number] Oral 240 240 118 Output: Chest Tube Drainage 100 95 10 Chest Tube Left Lateral 90 95 10 Chest Chest Tube Mediastinal 10 Urine 240 300 700 Post Void Residual 300 Other: Voiding Method Toilet Urinal # Voids 1 1 ABP, PAP, CO, CI - Last Documented Arterial Blood Pressure 90/47 Pulmonary Artery Pressure 33/20 Cardiac Output 6.6 Cardiac Index 2.8 - Exam GENERAL EXAM: Alert, pleasant 73-year-old male, on 2 L nasal cannula, in no apparent distress. HEAD: Normocephalic. EYES: Normal reaction of pupils, equal size. NOSE: Clear with pink turbinates. THROAT: Oral endotracheal and gastric tube secured in place. No erythema or exudates. NECK: No masses, no JVD. CHEST: Sternal dressing dry and intact. Heart hugger in place. LUNGS: Equal air entry with no crackles, wheeze, rhonchi or dullness. CVS: S1 and S2 normal with no audible murmur, regular rhythm. ABDOMEN: No hepatosplenomegaly,no guarding or rigidity. SPINE: No scoliosis or deformity SKIN: No rashes CENTRAL NERVOUS SYSTEM: Sedated, tone is normal in all 4 extremities. EXTREMITIES: Left upper extremity with Frank wrap in place. Frank wraps to the bilateral lower extremities. Sequential compression devices in place. Peripheral pulses are intact. - Labs CBC & Chem 7: 02/28/24 06:15 02/28/24 06:15 Labs: Abnormal Lab Results - Last 24 Hours (Table) 02/27/24 02/27/24 02/27/24 Range/Units 12:10 13:15 14:04 WBC (3.8-10.6) k/uL RBC (4.30-5.90) m/uL Hgb (13.0-17.5) gm/dL Hct (39.0-53.0) % MCHC (31.0-37.0) g/dL Plt Count (150-450) k/uL Neutrophils # (1.3-7.7) k/uL Monocytes # (0-1.0) k/uL Sodium (137-145) mmol/L Carbon Dioxide (22-30) mmol/L Creatinine (0.66-1.25) mg/dL Glucose (74-99) mg/dL POC Glucose (mg/dL) 138 H 138 H 141 H (70-110) mg/dL Total Protein (6.3-8.2) g/dL Albumin (3.5-5.0) g/dL 02/27/24 02/27/24 02/27/24 Range/Units 15:09 17:12 18:53 WBC (3.8-10.6) k/uL RBC (4.30-5.90) m/uL Hgb (13.0-17.5) gm/dL Hct (39.0-53.0) % MCHC (31.0-37.0) g/dL Plt Count (150-450) k/uL Neutrophils # (1.3-7.7) k/uL Monocytes # (0-1.0) k/uL Sodium (137-145) mmol/L Carbon Dioxide (22-30) mmol/L Creatinine (0.66-1.25) mg/dL Glucose (74-99) mg/dL POC Glucose (mg/dL) 146 H 132 H 171 H (70-110) mg/dL Total Protein (6.3-8.2) g/dL Albumin (3.5-5.0) g/dL 02/27/24 02/27/24 02/27/24 Range/Units 20:01 20:59 22:02 WBC (3.8-10.6) k/uL RBC (4.30-5.90) m/uL Hgb (13.0-17.5) gm/dL Hct (39.0-53.0) % MCHC (31.0-37.0) g/dL Plt Count (150-450) k/uL Neutrophils # (1.3-7.7) k/uL Monocytes # (0-1.0) k/uL Sodium (137-145) mmol/L Carbon Dioxide (22-30) mmol/L Creatinine (0.66-1.25) mg/dL Glucose (74-99) mg/dL POC Glucose (mg/dL) 128 H 147 H 124 H (70-110) mg/dL Total Protein (6.3-8.2) g/dL Albumin (3.5-5.0) g/dL 02/27/24 02/28/24 02/28/24 Range/Units 23:59 02:05 03:13 WBC (3.8-10.6) k/uL RBC (4.30-5.90) m/uL Hgb (13.0-17.5) gm/dL Hct (39.0-53.0) % MCHC (31.0-37.0) g/dL Plt Count (150-450) k/uL Neutrophils # (1.3-7.7) k/uL Monocytes # (0-1.0) k/uL Sodium (137-145) mmol/L Carbon Dioxide (22-30) mmol/L Creatinine (0.66-1.25) mg/dL Glucose (74-99) mg/dL POC Glucose (mg/dL) 121 H 134 H 113 H (70-110) mg/dL Total Protein (6.3-8.2) g/dL Albumin (3.5-5.0) g/dL 02/28/24 02/28/24 02/28/24 Range/Units 06:15 06:15 06:23 WBC 14.4 H (3.8-10.6) k/uL RBC 2.86 L (4.30-5.90) m/uL Hgb 8.6 L (13.0-17.5) gm/dL Hct 28.0 L (39.0-53.0) % MCHC 30.6 L (31.0-37.0) g/dL Plt Count 136 L (150-450) k/uL Neutrophils # 12.0 H (1.3-7.7) k/uL Monocytes # 1.1 H (0-1.0) k/uL Sodium 134 L (137-145) mmol/L Carbon Dioxide 20 L (22-30) mmol/L Creatinine 1.27 H (0.66-1.25) mg/dL Glucose 139 H (74-99) mg/dL POC Glucose (mg/dL) 149 H (70-110) mg/dL Total Protein 5.4 L (6.3-8.2) g/dL Albumin 3.4 L (3.5-5.0) g/dL 02/28/24 02/28/24 02/28/24 Range/Units 07:01 08:35 11:14 WBC (3.8-10.6) k/uL RBC (4.30-5.90) m/uL Hgb (13.0-17.5) gm/dL Hct (39.0-53.0) % MCHC (31.0-37.0) g/dL Plt Count (150-450) k/uL Neutrophils # (1.3-7.7) k/uL Monocytes # (0-1.0) k/uL Sodium (137-145) mmol/L Carbon Dioxide (22-30) mmol/L Creatinine (0.66-1.25) mg/dL Glucose (74-99) mg/dL POC Glucose (mg/dL) 156 H 143 H 139 H (70-110) mg/dL Total Protein (6.3-8.2) g/dL Albumin (3.5-5.0) g/dL Assessment and Plan Assessment: Coronary artery disease status post off-pump coronary artery bypass grafting x 4 with a PARKS to the LAD, sequential left radial artery graft to the first diagonal and intermediate, SVG to the PDA. Left atrial appendage ligation with clipping using 35mm atrial cure clip. Postoperative day #2 Obesity Obstructive sleep apnea Gastroesophageal reflux disease History of asthma, mild and intermittent History of psoriatic arthritis Chronic back pain Hyperlipidemia Hypertension Plan: The patient was seen and evaluated Chest x-ray, labs and medications reviewed Continue bronchodilators Continue incentive spirometer Titrate down the FiO2 as tolerated Increase his activity as tolerated We will continue to follow I have personally seen and examined the patient, performed the documentation and the assessment and plan as written. Number of minutes spent on the visit: 10.
[2024-02-28] MEDS: INSULIN ASPART (NovoLOG) 100 UNIT/ML VIAL SQ SCH ×2 (11:40→18:29)
--- NOTE | 2024-02-28 11:46 | P.PN ---
Subjective HISTORY OF PRESENTING ILLNESS This is a pleasant 73-year-old with past medical history significant for CAD with triple-vessel disease, hypertension, hyperlipidemia, cardiomyopathy, diabetes mellitus type 2, chronic kidney disease, asthma, SVT and chronic pain. He follows in the office with Dr Monique. He had heart catheterization 1 month ago with findings of severe 3 vessel CAD. He therefore underwent CABG 4 02/25. 02/27 Patient seen and examined. Patient states he is still having some chest pain around the incision however somewhat better than yesterday. Still having back pain. Mild shortness breath however also improving. Does have an appetite and is eating diet. Able to walk around the [place] with assist. Creatinine stable 1.27. He is having Cortis pulled later today. PHYSICAL EXAMINATION Vital signs reviewed. CONSTITUTIONAL: No apparent distress. Obese HEENT: Head is normocephalic. Pupils are equal, round. Sclerae anicteric. Mucous membranes of the mouth are moist. No JVD. No carotid bruit. CHEST EXAMINATION: Lungs are clear to auscultation. No chest wall tenderness is noted on palpation or with deep breathing. HEART EXAMINATION: Regular rate and rhythm. S1, S2 heard. No murmurs, gallops or rub. ABDOMEN: Soft, nontender. Positive bowel sounds. EXTREMITIES: 2+ peripheral pulses, no lower extremity edema and no calf tenderness. NEUROLOGIC EXAMINATION: Patient is awake, alert and oriented x3. ASSESSMENT CAD status post 4 vessel CABG 02/25 Hypertension, borderline blood pressures previously hypotensive postoperatively Hyperlipidemia Cardiomyopathy EF 45-50% Diabetes mellitus type 2 Chronic kidney disease Asthma Obstructive sleep apnea Psoriasis Morbid obesity Anemia PLAN Continue with aspirin and Plavix and monitor hemoglobin closely Continue with beta cristo as tolerated with borderline blood pressures. Likely add back losartan if blood pressure increases Agree with one-time dose of Lasix and monitor response Patient appears to be slowly improving Objective - Vital Signs Vital signs: Vital Signs Temp 98.3 F 02/28/24 08:15 Pulse 87 02/28/24 11:00 Resp 17 02/28/24 11:00 BP 89/63 02/28/24 11:00 Pulse Ox 100 02/28/24 11:00 FiO2 100 02/26/24 15:41 Intake & Output 02/27/24 02/28/24 02/28/24 18:59 06:59 18:59 Intake Total 1464.503 699.308 228.416 Output Total 340 695 710 Balance 1124.503 4.308 -481.584 Weight 120.4 kg 132.4 kg Intake: IV 968 378 92 Albumin Human 5% 500 ml @ 250 Per Protocol IVPB ONCE ONE Rx#:[id number] CO/CI 110 80 Diltiazem 125 mg In 10 Sodium Chloride 0.9% 100 ml @ 5 MG/HR 5 mls/hr IV .Q24H [facility] Rx#:[id number] Lactated Ringers 1,000 ml 490 220 80 @ 20 mls/hr IV .Q24H YA Rx#:[id number] Pressure Bags 108 78 12 Intake, IV Titration 256.503 81.308 18.416 Amount DOPamine DRIP 800 mg In 144.758 17.121 Dextrose/Water 1 250ml. bag @ 1 MCG/KG/MIN 2.389 mls/hr IV .Q24H YA Rx#: [id number] Insulin Regular 100 unit 85.295 64.187 18.416 In Sodium Chloride 0.9% 100 ml @ Per Protocol IV .Q0M [facility] Rx#:[id number] Nitroglycerin-D5w Pmx 50 26.45 mg In Dextrose/Water 1 250ml.bag @ 5 MCG/MIN 1.5 mls/hr IV .Q24H [facility] Rx#: [id number] Oral 240 240 118 Output: Chest Tube Drainage 100 95 10 Chest Tube Left Lateral 90 95 10 Chest Chest Tube Mediastinal 10 Urine 240 300 700 Post Void Residual 300 Other: Voiding Method Toilet Urinal # Voids 1 1 ABP, PAP, CO, CI - Last Documented Arterial Blood Pressure 90/47 Pulmonary Artery Pressure 33/20 Cardiac Output 6.6 Cardiac Index 2.8 - Labs CBC & Chem 7: 02/28/24 06:15 02/28/24 06:15 Labs: Abnormal Lab Results - Last 24 Hours (Table) 02/27/24 02/27/24 02/27/24 Range/Units 12:10 13:15 14:04 WBC (3.8-10.6) k/uL RBC (4.30-5.90) m/uL Hgb (13.0-17.5) gm/dL Hct (39.0-53.0) % MCHC (31.0-37.0) g/dL Plt Count (150-450) k/uL Neutrophils # (1.3-7.7) k/uL Monocytes # (0-1.0) k/uL Sodium (137-145) mmol/L Carbon Dioxide (22-30) mmol/L Creatinine (0.66-1.25) mg/dL Glucose (74-99) mg/dL POC Glucose (mg/dL) 138 H 138 H 141 H (70-110) mg/dL Total Protein (6.3-8.2) g/dL Albumin (3.5-5.0) g/dL 02/27/24 02/27/24 02/27/24 Range/Units 15:09 17:12 18:53 WBC (3.8-10.6) k/uL RBC (4.30-5.90) m/uL Hgb (13.0-17.5) gm/dL Hct (39.0-53.0) % MCHC (31.0-37.0) g/dL Plt Count (150-450) k/uL Neutrophils # (1.3-7.7) k/uL Monocytes # (0-1.0) k/uL Sodium (137-145) mmol/L Carbon Dioxide (22-30) mmol/L Creatinine (0.66-1.25) mg/dL Glucose (74-99) mg/dL POC Glucose (mg/dL) 146 H 132 H 171 H (70-110) mg/dL Total Protein (6.3-8.2) g/dL Albumin (3.5-5.0) g/dL 02/27/24 02/27/24 02/27/24 Range/Units 20:01 20:59 22:02 WBC (3.8-10.6) k/uL RBC (4.30-5.90) m/uL Hgb (13.0-17.5) gm/dL Hct (39.0-53.0) % MCHC (31.0-37.0) g/dL Plt Count (150-450) k/uL Neutrophils # (1.3-7.7) k/uL Monocytes # (0-1.0) k/uL Sodium (137-145) mmol/L Carbon Dioxide (22-30) mmol/L Creatinine (0.66-1.25) mg/dL Glucose (74-99) mg/dL POC Glucose (mg/dL) 128 H 147 H 124 H (70-110) mg/dL Total Protein (6.3-8.2) g/dL Albumin (3.5-5.0) g/dL 02/27/24 02/28/24 02/28/24 Range/Units 23:59 02:05 03:13 WBC (3.8-10.6) k/uL RBC (4.30-5.90) m/uL Hgb (13.0-17.5) gm/dL Hct (39.0-53.0) % MCHC (31.0-37.0) g/dL Plt Count (150-450) k/uL Neutrophils # (1.3-7.7) k/uL Monocytes # (0-1.0) k/uL Sodium (137-145) mmol/L Carbon Dioxide (22-30) mmol/L Creatinine (0.66-1.25) mg/dL Glucose (74-99) mg/dL POC Glucose (mg/dL) 121 H 134 H 113 H (70-110) mg/dL Total Protein (6.3-8.2) g/dL Albumin (3.5-5.0) g/dL 02/28/24 02/28/24 02/28/24 Range/Units 06:15 06:15 06:23 WBC 14.4 H (3.8-10.6) k/uL RBC 2.86 L (4.30-5.90) m/uL Hgb 8.6 L (13.0-17.5) gm/dL Hct 28.0 L (39.0-53.0) % MCHC 30.6 L (31.0-37.0) g/dL Plt Count 136 L (150-450) k/uL Neutrophils # 12.0 H (1.3-7.7) k/uL Monocytes # 1.1 H (0-1.0) k/uL Sodium 134 L (137-145) mmol/L Carbon Dioxide 20 L (22-30) mmol/L Creatinine 1.27 H (0.66-1.25) mg/dL Glucose 139 H (74-99) mg/dL POC Glucose (mg/dL) 149 H (70-110) mg/dL Total Protein 5.4 L (6.3-8.2) g/dL Albumin 3.4 L (3.5-5.0) g/dL 02/28/24 02/28/24 02/28/24 Range/Units 07:01 08:35 11:14 WBC (3.8-10.6) k/uL RBC (4.30-5.90) m/uL Hgb (13.0-17.5) gm/dL Hct (39.0-53.0) % MCHC (31.0-37.0) g/dL Plt Count (150-450) k/uL Neutrophils # (1.3-7.7) k/uL Monocytes # (0-1.0) k/uL Sodium (137-145) mmol/L Carbon Dioxide (22-30) mmol/L Creatinine (0.66-1.25) mg/dL Glucose (74-99) mg/dL POC Glucose (mg/dL) 156 H 143 H 139 H (70-110) mg/dL Total Protein (6.3-8.2) g/dL Albumin (3.5-5.0) g/dL
[2024-02-28 16:12] LABS: Glucose,Whole Blood 143 mg/dL (70-110)
[2024-02-28 20:48] LABS: Glucose,Whole Blood 139 mg/dL (70-110)
[2024-02-29] MEDS: HYDROcodone/APAP 10-325MG 1 EACH TAB PO PRN (03:27)
--- NOTE | 2024-02-29 05:33 | P.PN ---
Subjective Progress Note Date: 02/28/24 HISTORY OF PRESENT ILLNESS: 73-year-old with active medical history of obesity, psoriasis, atherosclerotic heart disease postangioplasty in the past, history of arrhythmia post car dioversion and adenosine treatment long time ago, history of recurrent asthma with worsening symptoms has been doing better lately, history of stage IIIa chronic kidney disease, history of type 2 diabetes on multi medication, severe psoriasis with psoriatic arthritis, chronic arthralgia, BPH, obstructive sleep apnea using CPAP, bilateral Fuchs dystrophy of both eyes. Patient found to have significant shortness of breath with atypical anginal symptoms on and off was referred to see cardiology and ended up having heart catheter with Dr. Monique which showed multiple artery blockage. Patient was referred to Dr. Samson for elective quadruple bypass surgery and prepare for it for the last 3 weeks. Ended up having his surgery this morning with 4 bypass PARKS to the LAD, sequential left radial artery graft to the intermediate and first diagonal, saphenous to the PDA and ligation of the left atrial appendage with AtriCure clip. Patient was transferred to the ICU on mechanical ventilation and he was successfully extubated shortly after coming to the intensive care unit. Was placed on higher flow oxygen did not watch on engine monitor still on dopamine drip along with insulin 5 units an hour and Cardizem drip as well. He is awake by the time was seen and alert complaining of leg with pain. 02/27/2024: Resting comfortably in ICU sleeping in a recliner still have quite a bit of spasm at this point he still complaining of quite a bit of pain discomfort. Apparently becomes slightly with tachycardic require more amiodarone drip last night he is not in A-fib. Remained hemodynamically stable developed to have mild low-grade anemia with hemoglobin of 9.5 but white blood cells up to 21,100 also creatinine is up to 1.2 GFR 30 better than expected. Blood sugars fluctuating but being on insulin drip has Blood sugar below 150. Will start him back on SGLT2 product and long-acting insulin beside Januvia. 02/28/2024: Patient is resting comfortably in ICU, still having [place]Rivka catheter along with 2 chest tube which apparently will be pulled out today, pulse rate is under control blood pressure stable but still running slightly low with his pulses slightly with marginal cardiothoracic will increase his metoprolol but the decision is to probably add midodrine initially to raise his blood pressure up little bit so he can tolerate higher dose of metoprolol. Still on insulin drip but will be transfer to oral hypoglycemic agent along with insulin decided to do NovoLog 5 units AC meals plus sliding scale coverage plus added Levemir 10 unit at bedtime, Tradjenta was added at 5 mg a day and will titrate up to 10 mg by tomorrow. Patient seems to tolerate the rest of his medication well and hopefully there is a plan to get him out of the ICU today will initiate and start physical therapy. Originally patient and family were thinking about going probably he might need to go to inpatient rehab at [facility] that he is doing very well I do not believe he is going to needed probably minimal help at home with home care and physical therapy should work out fine. REVIEW OF SYSTEMS: CONSTITUTIONAL: Overweight lying in bed waking up from being extubated after open heart surgery complaining of significant pain. EYES: No icterus sclerae, no conjunctivitis. EARS, NOSE, MOUTH, THROAT, and FACE: No sore throat, lymphadenopathy, carotid bruits or deformity. RESPIRATORY: Mild shortness of breath no cough or wheezes. Still have 3 chest tubes. CARDIOVASCULAR: Positive chest pain from incision no palpitation PND or orthopnea. GASTROINTESTINAL: No Abd pain, Nausea or vomiting, no Diarrhea or constipation, No GI Bleed, no distention or masses. GENITOURINARY: Negative for Hematuria or UTI, no kidney stones. Anderson catheter is still in. INTEGUMENT/BREAST: Negative for any muscular injury with mild osteoarthritis.. HEMATOLOGIC/LYMPHATIC: Negative for bleed or purpura. MUSCULOSKELTAL: Negative for Myalgia or arthralgia. NEURLOGICAL: No LOC, Sz or syncope, blurred vision dizziness or abnormality.. BEHAVIORAL/PSYCH: Negative. ENDOCRINE: Negative. PHYSICAL EXAMINATION: General Appearance: Overweight awaking does not look in respiratory distress still complaining of pain. Neck HEENT: Supple, no lymphadenopathy, no thyroid enlargement, no carotid bruits. Lungs: Decreased breath sound bilaterally with fine rhonchi no crackles or wheezes. Chest Wall: Chest wall incision looks fine no bleeding has mediastinal and left pleural tube in place Heart: Regular rate and rhythm, S1, S2 normal, no murmur, rub or gallop. Back: Symmetric, no curvature, ROM normal, no CVA tenderness. Abdomen: Soft, non-tender, bowel sounds active all four quadrants, no masses, no organomegaly. Extremities: Both lower extremity wrapped with Frank no bleeding from the graft harvest site. Left upper extremity again wrapped with Frank wrap with no bleeding. Pulses: 2+ and symmetric. Skin: Skin color, texture, tugor normal, no rashes or lesions. Neurologic: Alert oriented x3 cranial nerves II through XII intact, no motor deficit. ASSESSMENT AND PLAN: _Post four-vessel bypass graft with PARKS to the LAD, sequential left radial to the first diagonal and intermediate and saphenous to the PDA. Doing well postsurgery continue post surgical protocol. Will be transfer out of the ICU has been doing well so far no major complication all his line will be pulled out today and he is not having any major problem with arrhythmia his blood sugars under better control today. _Type 2 diabetes: DC insulin drip the patient will do Tradjenta 5 mg a day along with NovoLog 5 units AC meals plus sliding scale coverage and Levemir 10 unit daily will titrate dose higher and as for going home he might benefit just from being on Levemir itself along with higher dose of Tradjenta with his Januvia as before. _Stage IIIa chronic kidney disease: Holding well with his kidney function creatinine is up to 1.27 only his GFR still at 57. Is mostly at stage III A chronic kidney disease. _Severe asthma: He has seen pulmonary regularly on oxygen does not require any higher flow still on his DuoNeb and Pulmicort. _Severe psoriasis: Has been on methotrexate which will be held for now till patient is out of the hospital. _Obstructive sleep apnea: Hopefully will be back to using CPAP on a more regular basis. _Severe lower back pain with chronic neuropathy of the lower extremity: Was post to go for surgery early still on gabapentin and hydrocodone. Still having slight back pain but controlled with medication. _ tachycardia: Will increase his metoprolol. _Hypertension: Use midodrine 5 mg 3 times a day. _Hyperlipidemia: Remain on atorvastatin 40 mg a day. _Severe GERD/hiatal hernia: Continue on pantoprazole. Discussion: Patient is doing very well hopefully be out of the ICU today continue physical therapy and hopefully discharge for the end of the week. Objective - Vital Signs Vital signs: Vital Signs Temp 100.4 F H 02/28/24 04:00 Pulse 102 H 02/28/24 05:30 Resp 18 02/28/24 05:30 BP 96/62 02/28/24 05:00 Pulse Ox 98 02/28/24 05:30 FiO2 100 02/26/24 15:41 Intake & Output 02/27/24 02/27/24 02/28/24 06:59 18:59 06:59 Intake Total 8034.961 0367.503 703.308 Output Total 1243 340 640 Balance 039.132 5312.503 63.308 Weight 120.4 kg 120.4 kg Intake: IV 1297.0 968 382 ACETAMINOPHEN IV (For NPO 100 ) 1,000 mg In Empty Bag 1 bag @ 400 mls/hr IVPB Q6HR [facility] Rx#:[id number] Albumin Human 5% 500 ml @ 250 Per Protocol IVPB ONCE ONE Rx#:[id number] CO/CI 120 110 110 Diltiazem 125 mg In 60 10 Sodium Chloride 0.9% 100 ml @ 5 MG/HR 5 mls/hr IV .Q24H [facility] Rx#:[id number] Lactated Ringers 1,000 ml 600 490 200 @ 20 mls/hr IV .Q24H [facility] Rx#:[id number] Magnesium Sulfate-D5w Pmx 200 1 gm In Dextrose/Water 1 100ml.bag @ 100 mls/hr IVPB Q1H [facility] Rx#: [id number] Nitroglycerin-D5w Pmx 50 18.0 mg In Dextrose/Water 1 250ml.bag @ 5 MCG/MIN 1.5 mls/hr IV .Q24H [facility] Rx#: [id number] Pressure Bags 99 108 72 ceFAZolin 3 gm In Sodium 100 Chloride 0.9% 100 ml @ 100 mls/hr IVPB Q8HR [facility] Rx#:[id number] Intake, IV Titration 164.123 256.503 81.308 Amount DOPamine DRIP 800 mg In 38.937 144.758 17.121 Dextrose/Water 1 250ml. bag @ 1 MCG/KG/MIN 2.389 mls/hr IV .Q24H [facility] Rx#: [id number] Diltiazem 125 mg In 61.833 Sodium Chloride 0.9% 100 ml @ 5 MG/HR 5 mls/hr IV .Q24H [facility] Rx#:[id number] Insulin Regular 100 unit 63.353 85.295 64.187 In Sodium Chloride 0.9% 100 ml @ Per Protocol IV .Q0M [facility] Rx#:[id number] Nitroglycerin-D5w Pmx 50 26.45 mg In Dextrose/Water 1 250ml.bag @ 5 MCG/MIN 1.5 mls/hr IV .Q24H [facility] Rx#: [id number] Oral 240 240 Output: Chest Tube Drainage 548 100 40 Chest Tube Left Lateral 338 90 40 Chest Chest Tube Mediastinal 210 10 Urine 695 240 300 Post Void Residual 300 Other: Voiding Method Indwelling Catheter Toilet Urinal # Voids 1 ABP, PAP, CO, CI - Last Documented Arterial Blood Pressure 90/47 Pulmonary Artery Pressure 41/25 Cardiac Output 8.1 Cardiac Index 3.4 - Labs CBC & Chem 7: 02/28/24 06:15 02/28/24 06:15 Labs: Abnormal Lab Results - Last 24 Hours (Table) 02/27/24 02/27/24 02/27/24 Range/Units 09:29 11:01 12:10 POC Glucose (mg/dL) 167 H 161 H 138 H (70-110) mg/dL 02/27/24 02/27/24 02/27/24 Range/Units 13:15 14:04 15:09 POC Glucose (mg/dL) 138 H 141 H 146 H (70-110) mg/dL 02/27/24 02/27/24 02/27/24 Range/Units 17:12 18:53 20:01 POC Glucose (mg/dL) 132 H 171 H 128 H (70-110) mg/dL 02/27/24 02/27/24 02/27/24 Range/Units 20:59 22:02 23:59 POC Glucose (mg/dL) 147 H 124 H 121 H (70-110) mg/dL 02/28/24 02/28/24 Range/Units 02:05 03:13 POC Glucose (mg/dL) 134 H 113 H (70-110) mg/dL
[2024-02-29 06:49] LABS: Glucose,Whole Blood 143 mg/dL (70-110)
[2024-02-29 07:07] LABS: HCT 27.6 % (39.0-53.0); HGB 8.6 gm/dL (13.0-17.5); Hypochromasia Slight; MCH 30.6 pg (25.0-35.0); MCHC 31.2 g/dL (31.0-37.0); Mean Platelet Volume 10.4; Platelet Count 170 k/uL (150-450); RBC 2.82 m/uL (4.30-5.90); RDW 14.3 % (11.5-15.5)
[2024-02-29 07:26] LABS: African American GFR (CKD) 68 (>60 ml/min/1.73 sqM); Anion Gap 9 mmol/L; Blood Urea Nitrogen 25 mg/dL (9-20); Calcium 9.1 mg/dL (8.4-10.2); Carbon Dioxide 23 mmol/L (22-30); Chloride 104 mmol/L (98-107); Glucose 130 mg/dL (74-99); Magnesium 2.5 mg/dL (1.6-2.3); Non-African American GFR(CKD) 59 (>60 ml/min/1.73 sqM); Potassium 4.2 mmol/L (3.5-5.1); Sodium 136 mmol/L (137-145)
--- NOTE | 2024-02-29 07:46 | XR ---
EXAMINATION TYPE: XR chest 2V DATE OF EXAM: 02/29/2024 HISTORY: Cardiac surgery COMPARISON: 02/28/2024 TECHNIQUE: Single view of the chest is submitted. FINDINGS: Chest tubes and [place]-Rivka catheter have been removed. Median sternotomy change and left atrial clip i n place. Scattered pleural-parenchymal opacities seen likely reflective of atelectasis. The heart is stable. Hilar and mediastinal structures are within normal limits. Degenerative changes are seen of the dorsal spine. IMPRESSION: 1. post cardiac surgery changes
[2024-02-29] MEDS: POTASSIUM CHLORIDE ER 10 MEQ TAB.ER.PRT PO STA (09:03)
[2024-02-29] MEDS: FUROSEMIDE 10 MG/ML 2 ML VIAL IV STA (09:03)
--- NOTE | 2024-02-29 10:11 | P.PN ---
Subjective Progress Note Date: 02/29/24 Principal diagnosis: Coronary artery disease. Past medical history significant for coronary artery disease with history of myocardial infarction, hypertension, hyperlipidemia, car diomyopathy/chronic diastolic heart failure with an ejection fraction of 45-50%, diabetes, chronic kidney disease stage III, asthma, obstructive sleep apnea with home CPAP use, SVT status post cardioversion 20 years ago, chronic back pain on chronic narcotics, psoriasis on methotrexate outpatient, GERD, morbid obesity with a BMI of 44.5 kg/m, and is a lifelong non-smoker. POD #3 off-pump CABG x 4 with PARKS to LAD, sequential left radial artery graft off the PARKS to intermediate and first diagonal, saphenous vein graft to PDA, endovascular vein harvest, endovascular left radial artery harvest, ligation of the left atrial appendage with 35mm AtriCure clip and intraoperative transesophageal echocardiogram completed by anesthesia. Postoperative acute blood loss anemia, expected given hemodilution. The patient was seen and examined in follow-up today February 29, 2024 at his bedside on the third floor cardiac stepdown unit. He is currently sitting up to the bedside chair, is awake, alert, oriented x 3 and is in no acute apparent distress. Denies any complaints of pain or shortness of breath at this time, although is complaining of a productive cough with cason thin sputum. He has been afebrile in the last 24 hours. Oxygen saturations are 94% on room air and he is achieving 1500 mL on his incentive spirometry with encouragement. He reports he has been up ambulating in the hallway with standby assistance or nursing and therapy staff and tolerating well. Remote telemetry is showing sinus tachycardia heart rate 101 bpm. He remains hemodynamically stable and is currently on no inotropic or pressor support. Chest x-ray and laboratory results were reviewed. Objective - Vital Signs Vital signs: Vital Signs Temp 98.5 F 02/28/24 20:10 Pulse 96 02/29/24 08:59 Resp 16 02/29/24 04:10 BP 118/78 02/29/24 04:10 Pulse Ox 94 L 02/29/24 04:10 FiO2 100 02/26/24 15:41 Intake & Output 02/28/24 02/29/24 02/29/24 18:59 06:59 18:59 Intake Total 448.416 110 Output Total 1210 400 Balance -761.584 -400 110 Weight 132.7 kg Intake: IV 92 Lactated Ringers 1,000 ml 80 @ 20 mls/hr IV .Q24H [facility] Rx#:[id number] Pressure Bags 12 Intake, IV Titration 18.416 Amount Insulin Regular 100 unit 18.416 In Sodium Chloride 0.9% 100 ml @ Per Protocol IV .Q0M [facility] Rx#:[id number] Oral 338 110 Output: Chest Tube Drainage 10 Chest Tube Left Lateral 10 Chest Urine 1200 400 Other: Voiding Method Toilet Toilet Urinal Urinal # Voids 1 ABP, PAP, CO, CI - Last Documented Arterial Blood Pressure 90/47 Pulmonary Artery Pressure 33/20 Cardiac Output 6.6 Cardiac Index 2.8 - Exam CONSTITUTIONAL: Appears somewhat comfortable, cooperative, no acute distress. RESPIRATORY: Lungs sounds diminished bilaterally. Respirations symmetrical, nonlabored. Currently on room air with oxygen saturation 94%. Able to achieve 1500 mL on incentive spirometry. Strong productive cough with cason thin sputum. CARDIOVASCULAR: S1, S2 present. Regular rate and rhythm, Sinus tach on telemetry, heart rate 101 bpm. Sternum stable. Palpable peripheral pulses bilaterally. Trace generalized edema present. No calf pain or tenderness noted. Heart hugger in place with patient demonstrating appropriate use. A ntiembolism stockings, SCDs present. GASTROINTESTINAL: Abdomen soft, nontender, nondistended, obese. Active bowel sounds present 4 quadrants. Tolerating diet. Passing flatus. GENITOURINARY: Continues to void. INTEGUMENTARY: Skin is warm and dry with no clubbing or cyanosis. Midline sternal incision well approximated and covered with dry intact dressing. Left radial artery harvest site well approximated without redness or drainage. NEUROLOGIC: Cranial nerves II through XII intact. No focal deficits. MUSKULOSKELETAL: Able to move all extremities, strength equal bilaterally. PSYCHIATRIC: Alert and oriented to person place and time, appropriate affect, intact judgment and insight. - Allied health notes Allied health notes reviewed: nursing - Labs CBC & Chem 7: 02/29/24 06:47 02/29/24 06:47 Labs: Abnormal Lab Results - Last 24 Hours (Table) 02/28/24 02/28/24 02/28/24 Range/Units 11:14 16:11 20:46 WBC (3.8-10.6) k/uL RBC (4.30-5.90) m/uL Hgb (13.0-17.5) gm/dL Hct (39.0-53.0) % Sodium (137-145) mmol/L BUN (9-20) mg/dL Glucose (74-99) mg/dL POC Glucose (mg/dL) 139 H 143 H 139 H (70-110) mg/dL Magnesium (1.6-2.3) mg/dL 02/29/24 02/29/24 02/29/24 Range/Units 06:47 06:47 06:47 WBC 14.0 H (3.8-10.6) k/uL RBC 2.82 L (4.30-5.90) m/uL Hgb 8.6 L (13.0-17.5) gm/dL Hct 27.6 L (39.0-53.0) % Sodium 136 L (137-145) mmol/L BUN 25 H (9-20) mg/dL Glucose 130 H (74-99) mg/dL POC Glucose (mg/dL) 143 H (70-110) mg/dL Magnesium 2.5 H (1.6-2.3) mg/dL - Imaging and Cardiology Chest x-ray: report reviewed, image reviewed Assessment and Plan Assessment: Coronary artery disease with previous myocardial infarction, status post four- vessel off-pump CABG History of hypertension Hyperlipidemia, treated, cholesterol 93, LDL 17.5, triglycerides 201 Cardiomyopathy/chronic diastolic heart failure with reduced ejection fraction, EF 45-50% Diabetes mellitus type II, preoperative hemoglobin A1c 7.3% Chronic kidney disease stage III Asthma Obstructive sleep apnea with home CPAP use History of SVT status post cardioversion 20 years ago Chronic back pain on chronic narcotics Psoriasis on methotrexate outpatient GERD Morbid obesity Lifelong non-smoker, preoperative FEV1 58% of predicted Postoperative acute blood loss anemia, expected given hemodilution Plan: Continue to maximize medical therapy with aspirin, statin, Plavix, and beta- cristo. Will increase metoprolol to tartrate to 25 mg p.o. twice daily with hold parameters. Continue midodrine to support blood pressure. Will add an oral calcium channel cristo for radial artery spasm prophylaxis when able. Encourage incentive spirometry use 10 times every hour while awake. Bronchodilators per pulmonology. Increase activity, ambulate as tolerated. PT/OT/cardiac rehab following. Will monitor daily labs and chest x-rays. Electrolyte replacement per protocol. Avoid nephrotoxins. Will give 20 mg IV push Lasix today. GI/DVT prophylaxis. Pain control with current medication regimen. Insulin management per internal medicine. Preoperative hemoglobin A1c 7.3%. Continue to monitor strict accurate intake and output. Daily weights. Shower daily. Discharge planning is in place. Anticipate discharge home with home health care or to inpatient rehab in the next 24 hours. More recommendations to follow based on patient's clinical course. Time with Patient: Greater than 30
[2024-02-29] MEDS: METOPROLOL TARTRATE 12.5 MG TAB PO STA (11:30)
[2024-02-29 12:05] LABS: Glucose,Whole Blood 152 mg/dL (70-110)
--- NOTE | 2024-02-29 12:48 | P.CONS ---
History of Present Illness - Reason for Consult Consult date: 02/29/24 rehab recommendations - Chief Complaint s/p CABG - History of Present Illness Mr Kar Moncada is a 73 y/o male who lives with his in a single story home with 3 JODIE. Prior to admission, He was independent with mobility and adls. He has a supportive . Patient presented to the hospital for planned CABG after heart cath approximately one month ago. He has a Past medical history significant for coronary artery disease with history of myocardial infarction, hypertension, hyperlipidemia, cardiomyopathy/chronic diastolic heart failure with an ejection fraction of 45-50%, diabetes, chronic kidney disease stage III, asthma, obstructive sleep apnea with home CPAP use, SVT status post cardioversion 20 years ago, chronic back pain on chronic narcotics, psoriasis on methotrexate outpatient, GERD, morbid obesity with a BMI of 44.5 kg/m, and is a lifelong non-smoker. On 02/25, had off-pump CABG x 4 with PARKS to LAD, sequential left radial artery graft off the PARKS to intermediate and first diagonal, saphenous vein graft to PDA, endovascular vein harvest, endovascular left radial artery harvest, ligation of the left atrial appendage with 35mm AtriCure clip and intraoperative transesophageal echocardiogram completed by anesthesia. He had postoperative acute blood loss anemia which was expected given hemodilution. Recent Hgb 8.6. February 29, 2024 complaining of a productive cough with cason thin sputum. He has been afebrile in the last 24 hours. Oxygen saturations are 94% on room air. PM&R consulted for rehab recommendations. Patient was seen on 02/27/24: max assist with bathing, dressing, bed mobility 20 ft 2 person mod assist. Review of Systems reviewed, negative unless stated above in HPI. 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 History of Any Multi-Drug Resistant Organisms: None Reported Past Surgical History: Cholecystectomy, Heart Catheterization, Hernia Repair, Joint Replacement Additional Past Surgical History / Comment(s): Bilateral eye cataract removed, bilateral total knees, total R hip, PAIN CLINIC PROCEDURE, COLONOSCOPY,rt inguinal hernia repair Past Anesthesia/Blood Transfusion Reactions: No Reported Reaction Additional Past Anesthesia/Blood Transfusion Reaction / Comm: no hx blood transfusion Smoking Status: Never smoker - Past Family History Father Family Medical History: CVA/TIA, Diabetes Mellitus Additional Family Medical History / Comment(s): Massive cva at 78yrs Mother Additional Family Medical History / Comment(s): Chronic kidney disease, coronary artery disease, history of myocardial infarction- at age 93 Medications and Allergies Home Medications Medication Instructions Recorded Confirmed Type Aspirin EC [Ecotrin Low Dose] 81 mg PO QAM 12/17/21 02/20/24 History Atorvastatin [Lipitor] 40 mg PO HS 12/17/21 02/20/24 History Spironolactone 12.5 mg PO QAM 12/17/21 02/20/24 History metHOTREXate sodium 20 mg PO MO 12/17/21 02/20/24 History Benralizumab [Fasenra] 1 dose SQ Q56D 06/23/23 02/20/24 History Folic Acid 1 mg PO SUTUWETHFRSA 06/23/23 02/20/24 History Furosemide [Lasix] 40 mg PO QAM 06/23/23 02/20/24 History metFORMIN HCL [Glucophage] 500 mg PO BID 06/23/23 02/20/24 History Clotrimazole/Betamethasone Dip 1 applic TOPICAL DAILY PRN 12/08/23 02/20/24 History [Clotrimazole-Betamethasone Lot] Docusate [Colace] 100 mg PO DAILY 12/08/23 02/20/24 History Econazole 1% Cream [Spectazole] 1 cream TOPICAL DAILY PRN 12/08/23 02/20/24 History Pantoprazole Sodium 40 mg PO BID 12/08/23 02/20/24 History Cholecalciferol (Vitamin D3) 50 mcg PO QAM 01/31/24 02/20/24 History [Vitamin D3 (50 Mcg = 2000 Iu)] Gabapentin 300 mg PO QAM 01/31/24 02/20/24 History Gabapentin 600 mg PO HS 01/31/24 02/20/24 History Isosorbide Mononitrate ER [Imdur] 30 mg PO QAM 01/31/24 02/20/24 History Losartan [Cozaar] 50 mg PO QAM 01/31/24 02/23/24 History Magnesium 400 mg PO QAM 01/31/24 02/20/24 History Brimonidine 0.15% 1 drop BOTH EYES DAILY PRN 02/20/24 02/20/24 History HYDROcodone/APAP 7.5-325MG [[place] 1 tab PO Q6H PRN 02/20/24 02/20/24 History 7.5-325] Allergies Allergy/AdvReac Type Severity Reaction Status Date / Time empagliflozin Allergy Nausea & Verified 02/20/24 15:01 [From Jardiance] Vomiting semaglutide [From Ozempic] Allergy Nausea & Verified 02/20/24 15:01 Vomiting Physical Exam Vitals: Vital Signs Temp Pulse Pulse Resp BP BP Pulse Ox 02/29/24 11:30 98 F 94 17 94/63 94 L 02/29/24 09:05 98.8 F 94 18 102/70 94 L 02/29/24 08:59 96 02/29/24 08:47 92 02/29/24 04:10 95 16 118/78 94 L 02/29/24 00:10 95 16 103/64 99 02/28/24 20:10 98.5 F 103 H 16 116/75 95 02/28/24 16:00 98.0 F 99 9 L 95/68 98 02/28/24 15:33 98 02/28/24 15:19 96 02/28/24 15:00 93 20 108/69 93 L 02/28/24 14:00 91 15 92/64 97 02/28/24 13:00 94 18 90/66 99 02/28/24 12:54 97 02/28/24 12:45 92 02/28/24 12:30 88 17 99/63 99 Intake and Output 02/28/24 02/29/24 02/29/24 22:59 06:59 14:59 Intake Total 220 110 Output Total 500 400 Balance -280 -400 110 Intake: Oral 220 110 Output: Urine 500 400 Other: Voiding Method Toilet Toilet Toilet Urinal Urinal Urinal # Voids 1 Weight 132.7 kg General: WDWN, male, NAD Head: Normocephalic, atraumatic. Eyes: Symmetric Ears: Symmetric. Hearing within normal limits. Mouth: Clear. Neck: Supple. Cardiac: Regular rate and rhythm. Calves supple, non tender, 3+ b/l pitting edema Lungs: Breathing comfortably on NC. Chest symmetric. Sternal incision covered with dressing, dressing c/d/i Abdomen: Soft, nontender. Extremities: Arthritic changes consistent with age. Neurological: Alert and oriented x3 . Speech is clear and fluent without paraphasic errors Cranial nerves: CN II-XII: intact. Sensation: Intact and symmetrical limbs. Musculoskeletal: ROM WFL EXCEPT: MMT UE Sh Abd EE EF FABD WE HG Right 4 5 5 5 Left 4 5 5 5 MMT LE HF KE DF EHL Right 4 5 5 Left 4 5 5 Skin: Skin intact where visible to head, neck, and bilateral upper and lower extremities Psych: Calm, cooperative Results CBC & Chem 7: 03/01/24 08:43 03/01/24 08:43 Labs: Abnormal Lab Results - Last 24 Hours (Table) 02/28/24 02/28/24 02/29/24 Range/Units 16:11 20:46 06:47 WBC 14.0 H (3.8-10.6) k/uL RBC 2.82 L (4.30-5.90) m/uL Hgb 8.6 L (13.0-17.5) gm/dL Hct 27.6 L (39.0-53.0) % Sodium (137-145) mmol/L BUN (9-20) mg/dL Glucose (74-99) mg/dL POC Glucose (mg/dL) 143 H 139 H (70-110) mg/dL Magnesium (1.6-2.3) mg/dL 02/29/24 02/29/24 02/29/24 Range/Units 06:47 06:47 12:03 WBC (3.8-10.6) k/uL RBC (4.30-5.90) m/uL Hgb (13.0-17.5) gm/dL Hct (39.0-53.0) % Sodium 136 L (137-145) mmol/L BUN 25 H (9-20) mg/dL Glucose 130 H (74-99) mg/dL POC Glucose (mg/dL) 143 H 152 H (70-110) mg/dL Magnesium 2.5 H (1.6-2.3) mg/dL Assessment and Plan Assessment: # Cardiac debility secondary to Coronary artery disease with previous myocardial infarction, status post four-vessel off-pump CABG -sternal precautions -comprehensive therapy #History of hypertension # Postoperative acute blood loss anemia, expected given hemodilution #Hyperlipidemia, treated, cholesterol 93, LDL 17.5, triglycerides 201 #Cardiomyopathy/chronic diastolic heart failure with reduced ejection fraction, EF 45-50% #Diabetes mellitus type II, preoperative hemoglobin A1c 7.3% #Chronic kidney disease stage III # Comorbidities: Asthma, Obstructive sleep apnea with home CPAP use, History of SVT status post cardioversion 20 years ago, Chronic back pain on chronic narcotics, Psoriasis on methotrexate outpatient, GERD, Morbid obesity Lifelong non-smoker # Pain Management: [place] 10/325 mg Q 6 hrs prn, Gabapentin 300 mg AM and 600 mg QHS, Robaxin 500 mg QID prn, Tylenol prn # DVT -Heparin SQ # Your medical dx and management Dispo: Patient is motivated and has good support, recommending IPR once medically stable. Patient seen and examined by Dr Ornelas, note remotely prepped Viri Hall PA-C
--- NOTE | 2024-02-29 13:12 | P.PN ---
Subjective Progress Note Date: 02/29/24 Principal diagnosis: Status post open heart surgery. This is a 73-year-old male patient with a known history of obstructive sleep apnea, obesity, asthma, psoriasis, chronic back pain. FEV1 value is 60% of predicted. He was recently found to have significant coronary artery disease and was brought in today electively for bypass surgery. He did undergo off-pump coronary artery bypass grafting x 4 with a PARKS to the LAD, sequential left radial artery graft to the intermediate and first diagonal, SVG to the PDA. Ligation of the left atrial appendage with a 35 mm AtriCure clip. He is seen in follow-up in the intensive care unit. He is intubated on the mechanical ventila tor. He is currently on pressure support of 10 and CPAP of 5 with 50% FiO2. His sedation is off. Plan is for early extubation protocol. Arterial blood gases revealed a PaO2 of 256, pCO2 of 45 and a pH of 7.32. His cardiac output is 7.2. Cardiac index 3.1. PA pressure 29/15. CVP 11. He is on lactated Ringer's at 50 MLS per hour. A Cardizem drip at 5 mg/h. Nitroglycerin drip at 5 mcg/min, insulin drip at 6 units/h. Dopamine drip at 3 mcg/kg/min. Mediastinal split chest tube and a left pleural chest tubes are in place. Dust x-ray reveals catheters and drains in appropriate position. Postoperative changes. No pneumothorax. White count 16.3. Hemoglobin 10.1. Platelets 145. Sodium 139. Potassium 4.0. Bicarb 21. BUN 22. Creatinine 1.15. Glucose 167. He is initiated on bronchodilators. Heparin for DVT prophylaxis. The patient is seen today February 27, 2024 in follow-up in the intensive care unit. He is currently sitting up in a chair. Awake and alert in no acute distress. Maintaining O2 saturations in the 90s on 3 L/min per nasal cannula. X-ray reveals atelectasis in the lung bases left greater than right. White count 21.1. Hemoglobin 9.5. Platelets 148. Sodium 136. Potassium 4.3. Bicarb 23. BUN 23. Creatinine 1.27. Glucose 111. Cardiac output 8.4. Cardiac index 3.6. PA pressure 26/8. CVP 2. He did receive albumin today. He is currently on do pamine drip at 4 mcg/kg/min. Remains on insulin drip at 8 units/h. Lactated Ringer's at 20 MLS per hour. Heparin for DVT prophylaxis. Remains on bronchodilators. Working well with the incentive spirometer. The patient is seen today February 28, 2024 in follow-up in the intensive care unit. He is awake and alert in no acute distress. He is currently sitting up in a chair at the bedside. He is maintaining good O2 saturations in the 90s on 2 L/min per nasal cannula. Continues to work well with the incentive spirometer. Chest x-ray reveals postsurgical changes. No evidence of pneumothorax. Heparin for DVT prophylaxis. White count 14.4. Hemoglobin 8.6. Platelets 136. Sodium 134. Potassium 4.3. Bicarb 20. BUN 20. Creatinine 1.27. Glucose 139. Progress note dated February 29, 2024. The patient is seen today in room 370. He is sitting in the chair, next to his bed. He is not receiving any supplemental oxygen, or IV fluids. He is postoperative day #3, status post off-pump four-vessel bypass surgery. Clinically, he has no complaints. Current labs include a white count 14, hemoglobin 8.6, hematocrit 27.6, and a normal platelet count. Sodium 136, potassium 4.2, chlorides 104, CO2 23, BUN 25, creatinine 1.23. Glucose is 152. Magnesium is 2.5. Chest x-ray today shows chest tubes and [place] catheter, to have been removed. There are postoperative changes noted bilaterally, particularly at the bases. Objective - Vital Signs Vital signs: Vital Signs Temp 98 F 02/29/24 11:30 Pulse 94 02/29/24 11:30 Resp 17 02/29/24 11:30 BP 94/63 02/29/24 11:30 Pulse Ox 94 L 02/29/24 11:30 FiO2 100 02/26/24 15:41 Intake & Output 02/28/24 02/29/24 02/29/24 18:59 06:59 18:59 Intake Total 448.416 110 Output Total 1210 400 Balance -761.584 -400 110 Weight 132.7 kg Intake: IV 92 Lactated Ringers 1,000 ml 80 @ 20 mls/hr IV .Q24H [facility] Rx#:[id number] Pressure Bags 12 Intake, IV Titration 18.416 Amount Insulin Regular 100 unit 18.416 In Sodium Chloride 0.9% 100 ml @ Per Protocol IV .Q0M [facility] Rx#:[id number] Oral 338 110 Output: Chest Tube Drainage 10 Chest Tube Left Lateral 10 Chest Urine 1200 400 Other: Voiding Method Toilet Toilet Toilet Urinal Urinal Urinal # Voids 1 ABP, PAP, CO, CI - Last Documented Arterial Blood Pressure 90/47 Pulmonary Artery Pressure 33/20 Cardiac Output 6.6 Cardiac Index 2.8 - Exam No acute distress, oriented 3. HEENT examination is grossly unremarkable. Mucous membranes are moist. No oral lesions. Neck supple. Full range of motion. No adenopathy thyromegaly or neck vein distention. Cardiovascular examination reveals regular rhythm rate. S1-S2 normal. No S3 or S4. No discernible murmur noted. Lungs reveal minimal basilar rhonchi. No wheezes or crackles. Breath sounds equal bilaterally. Saturations are excellent on room air. Abdomen soft bowel sounds are heard. No masses or tenderness. Extremities are intact. No cyanosis clubbing or edema. Skin is without rash or lesion. Neurologic examination is brief but nonfocal. - Labs CBC & Chem 7: 02/29/24 06:47 02/29/24 06:47 Labs: Abnormal Lab Results - Last 24 Hours (Table) 02/28/24 02/28/24 02/29/24 Range/Units 16:11 20:46 06:47 WBC 14.0 H (3.8-10.6) k/uL RBC 2.82 L (4.30-5.90) m/uL Hgb 8.6 L (13.0-17.5) gm/dL Hct 27.6 L (39.0-53.0) % Sodium (137-145) mmol/L BUN (9-20) mg/dL Glucose (74-99) mg/dL POC Glucose (mg/dL) 143 H 139 H (70-110) mg/dL Magnesium (1.6-2.3) mg/dL 02/29/24 02/29/24 02/29/24 Range/Units 06:47 06:47 12:03 WBC (3.8-10.6) k/uL RBC (4.30-5.90) m/uL Hgb (13.0-17.5) gm/dL Hct (39.0-53.0) % Sodium 136 L (137-145) mmol/L BUN 25 H (9-20) mg/dL Glucose 130 H (74-99) mg/dL POC Glucose (mg/dL) 143 H 152 H (70-110) mg/dL Magnesium 2.5 H (1.6-2.3) mg/dL Assessment and Plan Assessment: Coronary artery disease status post off-pump coronary artery bypass grafting x 4 with a PARKS to the LAD, sequential left radial artery graft to the first di agonal and intermediate, SVG to the PDA. Left atrial appendage ligation with clipping using 35mm atrial cure clip. Postoperative day #3. Obesity. Obstructive sleep apnea. Gastroesophageal reflux disease. History of asthma, mild and intermittent. History of psoriatic arthritis. Chronic back pain. Hyperlipidemia. Hypertension. Plan: Plan dated February 29, 2024. The patient appears to be doing relatively well. The patient continues to deep breathe, cough, clear secretions. The patient continues to use the incentive spirometer, every hour while awake. We will continue to follow make recommendations along the way. Labs, x-rays, and all medications have been reviewed. Prognosis is guarded. Time with Patient: Less than 30
--- NOTE | 2024-02-29 14:18 | P.PN ---
Subjective HISTORY OF PRESENTING ILLNESS This is a pleasant 73-year-old with past medical history significant for CAD with triple-vessel disease, hypertension, hyperlipidemia, cardiomyopathy, diabetes mellitus type 2, chronic kidney disease, asthma, SVT and chronic pain. He follows in the office with Dr Monique. He had heart catheterization 1 month ago with findings of severe 3 vessel CAD. He therefore underwent CABG 4 02/25. 02/27 Patient seen and examined. Patient states he is still having some chest pain around the incision however somewhat better than yesterday. Still having back pain. Mild shortness breath however also improving. Does have an appetite and is eating diet. Able to walk around the ernandez with assist. Creatinine stable 1.27. He is having Cortis pulled later today. 02/28 patient seen and examined. Patient transferred from ICU. Denies any chest pain or pressure. Creatinine stable 1.23. Blood pressure borderline and still receiving Midodrine. Metoprolol was increased up to 25 twice a day. Receiving additional IV Lasix today. Still has some degree of lower extreme edema. Overall feels mildly improved. PHYSICAL EXAMINATION Vital signs reviewed. CONSTITUTIONAL: No apparent distress. Obese HEENT: Head is normocephalic. Pupils are equal, round. Sclerae anicteric. Mucous membranes of the mouth are moist. No JVD. No carotid bruit. CHEST EXAMINATION: Lungs are clear to auscultation. No chest wall tenderness is noted on palpation or with deep breathing. HEART EXAMINATION: Regular rate and rhythm. S1, S2 heard. No murmurs, gallops or rub. ABDOMEN: Soft, nontender. Positive bowel sounds. EXTREMITIES: 2+ peripheral pulses, no lower extremity edema and no calf tenderness. NEUROLOGIC EXAMINATION: Patient is awake, alert and oriented x3. ASSESSMENT CAD status post 4 vessel CABG 02/25 Hypertension, borderline blood pressures previously hypotensive postoperatively Hyperlipidemia Cardiomyopathy EF 45-50% Diabetes mellitus type 2 Chronic kidney disease Asthma Obstructive sleep apnea Psoriasis Morbid obesity Anemia PLAN Continue with aspirin and Plavix and monitor hemoglobin closely Continue with beta cristo as tolerated with borderline blood pressures. Likely add back losartan if blood pressure increases, however currently requiring Midodrine Agree with additional Lasix and monitor response Patient appears to be slowly improving Objective - Vital Signs Vital signs: Vital Signs Temp 98 F 02/29/24 11:30 Pulse 94 02/29/24 11:30 Resp 17 02/29/24 11:30 BP 94/63 02/29/24 11:30 Pulse Ox 94 L 02/29/24 11:30 FiO2 100 02/26/24 15:41 Intake & Output 02/28/24 02/29/24 02/29/24 18:59 06:59 18:59 Intake Total 448.416 110 Output Total 1210 400 Balance -761.584 -400 110 Weight 132.7 kg Intake: IV 92 Lactated Ringers 1,000 ml 80 @ 20 mls/hr IV .Q24H [facility] Rx#:[id number] Pressure Bags 12 Intake, IV Titration 18.416 Amount Insulin Regular 100 unit 18.416 In Sodium Chloride 0.9% 100 ml @ Per Protocol IV .Q0M [facility] Rx#:[id number] Oral 338 110 Output: Chest Tube Drainage 10 Chest Tube Left Lateral 10 Chest Urine 1200 400 Other: Voiding Method Toilet Toilet Toilet Urinal Urinal Urinal # Voids 1 ABP, PAP, CO, CI - Last Documented Arterial Blood Pressure 90/47 Pulmonary Artery Pressure 33/20 Cardiac Output 6.6 Cardiac Index 2.8 - Labs CBC & Chem 7: 02/29/24 06:47 02/29/24 06:47 Labs: Abnormal Lab Results - Last 24 Hours (Table) 02/28/24 02/28/24 02/29/24 Range/Units 16:11 20:46 06:47 WBC 14.0 H (3.8-10.6) k/uL RBC 2.82 L (4.30-5.90) m/uL Hgb 8.6 L (13.0-17.5) gm/dL Hct 27.6 L (39.0-53.0) % Sodium (137-145) mmol/L BUN (9-20) mg/dL Glucose (74-99) mg/dL POC Glucose (mg/dL) 143 H 139 H (70-110) mg/dL Magnesium (1.6-2.3) mg/dL 02/29/24 02/29/24 02/29/24 Range/Units 06:47 06:47 12:03 WBC (3.8-10.6) k/uL RBC (4.30-5.90) m/uL Hgb (13.0-17.5) gm/dL Hct (39.0-53.0) % Sodium 136 L (137-145) mmol/L BUN 25 H (9-20) mg/dL Glucose 130 H (74-99) mg/dL POC Glucose (mg/dL) 143 H 152 H (70-110) mg/dL Magnesium 2.5 H (1.6-2.3) mg/dL
[2024-02-29 15:15] VITALS: RESP 18
[2024-02-29 16:18] LABS: Glucose,Whole Blood 125 mg/dL (70-110)
[2024-02-29 20:04] LABS: Glucose,Whole Blood 117 mg/dL (70-110)
[2024-02-29] MEDS: METOPROLOL TARTRATE 25 MG TAB PO SCH (20:13)
--- NOTE | 2024-03-01 05:55 | P.PN ---
Subjective Progress Note Date: 02/29/24 HISTORY OF PRESENT ILLNESS: 73-year-old with active medical history of obesity, psoriasis, atherosclerotic heart disease postangioplasty in the past, history of arrhythmia post car dioversion and adenosine treatment long time ago, history of recurrent asthma with worsening symptoms has been doing better lately, history of stage IIIa chronic kidney disease, history of type 2 diabetes on multi medication, severe psoriasis with psoriatic arthritis, chronic arthralgia, BPH, obstructive sleep apnea using CPAP, bilateral Fuchs dystrophy of both eyes. Patient found to have significant shortness of breath with atypical anginal symptoms on and off was referred to see cardiology and ended up having heart catheter with Dr. Monique which showed multiple artery blockage. Patient was referred to Dr. Samson for elective quadruple bypass surgery and prepare for it for the last 3 weeks. Ended up having his surgery this morning with 4 bypass PARKS to the LAD, sequential left radial artery graft to the intermediate and first diagonal, saphenous to the PDA and ligation of the left atrial appendage with AtriCure clip. Patient was transferred to the ICU on mechanical ventilation and he was successfully extubated shortly after coming to the intensive care unit. Was placed on higher flow oxygen did not watch on wood borer still on dopamine drip along with insulin 5 units an hour and Cardizem drip as well. He is awake by the time was seen and alert complaining of leg with pain. 02/27/2024: Resting comfortably in ICU sleeping in a recliner still have quite a bit of spasm at this point he still complaining of quite a bit of pain discomfort. Apparently becomes slightly with tachycardic require more amiodarone drip last night he is not in A-fib. Remained hemodynamically stable developed to have mild low-grade anemia with hemoglobin of 9.5 but white blood cells up to 21,100 also creatinine is up to 1.2 GFR 30 better than expected. Blood sugars fluctuating but being on insulin drip has Blood sugar below 150. Will start him back on SGLT2 product and long-acting insulin beside Januvia. 02/28/2024: Patient is resting comfortably in ICU, still having [place] catheter along with 2 chest tube which apparently will be pulled out today, pulse rate is under control blood pressure stable but still running slightly low with his pulses slightly with marginal cardiothoracic will increase his metoprolol but the decision is to probably add midodrine initially to raise his blood pressure up little bit so he can tolerate higher dose of metoprolol. Still on insulin drip but will be transfer to oral hypoglycemic agent along with insulin decided to do NovoLog 5 units AC meals plus sliding scale coverage plus added Levemir 10 unit at bedtime, Tradjenta was added at 5 mg a day and will titrate up to 10 mg by tomorrow. Patient seems to tolerate the rest of his medication well and hopefully there is a plan to get him out of the ICU today will initiate and start physical therapy. Originally patient and family were thinking about going probably he might need to go to inpatient rehab at [facility] that he is doing very well I do not believe he is going to needed probably minimal help at home with home care and physical therapy should work out fine. 02/29/2024: He is doing well cardiovascular deras has improved significantly no borderline at this point still having slightly pain, mild shortness of breath and still have minimal cough at times. Still using CPAP at night, chronic kidney disease remained stable and creatinine is only 1.23 with GFR at 59. The management for blood sugar being on Tradjenta 5 mg daily Levemir 10 units daily along with 5 units of NovoLog AC meals has kept his blood sugar at minimum. Will titrate Tradjenta today up to 10 mg for the maximum effect of SGLT2 product and patient will be discharged on it. As per the combination of the NovoLog and the Levemir we will wrap up to third the NovoLog is giving which is 15 mg divided by 3X2= 10 extra unit and rounded up to his Levemir to be the maintenance and we can probably keep doing Accu-Cheks and sliding scale coverage which will require minimum insulin at this point. Patient was seen by inpatient rehab and apparently planning to take him to inpatient rehab once he is stable which most likely will happen today. Arrhythmia deras patient has been doing very well with minimal PVCs and tachycardia he is remain on Lopressor 25 mg twice a day. Will blood pressure still slightly below but patient doing well on midodrine 5 mg 3 times a day. REVIEW OF SYSTEMS: CONSTITUTIONAL: Overweight lying in bed waking up from being extubated after open heart surgery complaining of significant pain. EYES: No icterus sclerae, no conjunctivitis. EARS, NOSE, MOUTH, THROAT, and FACE: No sore throat, lymphadenopathy, carotid bruits or deformity. RESPIRATORY: Mild shortness of breath no cough or wheezes. Still have 3 chest tubes. CARDIOVASCULAR: Positive chest pain from incision no palpitation PND or orthopnea. GASTROINTESTINAL: No Abd pain, Nausea or vomiting, no Diarrhea or constipation, No GI Bleed, no distention or masses. GENITOURINARY: Negative for Hematuria or UTI, no kidney stones. Anderson catheter is still in. INTEGUMENT/BREAST: Negative for any muscular injury with mild osteoarthritis.. HEMATOLOGIC/LYMPHATIC: Negative for bleed or purpura. MUSCULOSKELTAL: Negative for Myalgia or arthralgia. NEURLOGICAL: No LOC, Sz or syncope, blurred vision dizziness or abnormality.. BEHAVIORAL/PSYCH: Negative. ENDOCRINE: Negative. PHYSICAL EXAMINATION: General Appearance: Overweight awaking does not look in respiratory distress still complaining of pain. Neck HEENT: Supple, no lymphadenopathy, no thyroid enlargement, no carotid bruits. Lungs: Decreased breath sound bilaterally with fine rhonchi no crackles or wheezes. Chest Wall: Chest wall incision looks fine no bleeding has mediastinal and left pleural tube in place Heart: Regular rate and rhythm, S1, S2 normal, no murmur, rub or gallop. Back: Symmetric, no curvature, ROM normal, no CVA tenderness. Abdomen: Soft, non-tender, bowel sounds active all four quadrants, no masses, no organomegaly. Extremities: Both lower extremity wrapped with Frank no bleeding from the graft harvest site. Left upper extremity again wrapped with Frank wrap with no bleeding. Pulses: 2+ and symmetric. Skin: Skin color, texture, tugor normal, no rashes or lesions. Neurologic: Alert oriented x3 cranial nerves II through XII intact, no motor deficit. ASSESSMENT AND PLAN: _Post four-vessel bypass graft with PARKS to the LAD, sequential left radial to the first diagonal and intermediate and saphenous to the PDA. Doing well postsurgery continue post surgical protocol. Patient is doing very well mobility deras he is still not back active apparently was evaluated by inpatient rehab and accepted. _Type 2 diabetes: Switch to a medication with Tradjenta up to 10 mg a day, Levemir up to 20 units daily and still on Accu-Chek with sliding scale coverage should be his final discharge diabetic medication _Stage IIIa chronic kidney disease: His GFR is close to 59 he is remain stable with minimal change in kidney function in fact has improvement from before surgery. _Severe asthma: He has seen pulmonary regularly on oxygen does not require any higher flow still on his DuoNeb and Pulmicort. And will resume Fasenra on discharge. _Severe psoriasis: Continue to hold methotrexate till he is out of the hospital and rehab completely. _Obstructive sleep apnea: Hopefully will be back to using CPAP on a more regular basis. _Severe lower back pain with chronic neuropathy of the lower extremity: Was post to go for surgery early still on gabapentin and hydrocodone. Still having slight back pain but controlled with medication. _ tachycardia: Will increase his metoprolol to 25 mg twice a day seem to hold well with it. _Hyportension: Use midodrine 5 mg 3 times a day. The blood pressure systolic still above 100. _Hyperlipidemia: Remain on atorvastatin 40 mg a day. _Severe GERD/hiatal hernia: Continue on pantoprazole. Discussion: He is doing very well we will titrate physical therapy if he is accepted to inpatient rehab medically I believe will be stable to be transferred tomorrow. Objective - Vital Signs Vital signs: Vital Signs Temp 98.5 F 02/28/24 20:10 Pulse 95 02/29/24 04:10 Resp 16 02/29/24 04:10 BP 118/78 02/29/24 04:10 Pulse Ox 94 L 02/29/24 04:10 FiO2 100 02/26/24 15:41 Intake & Output 02/28/24 02/28/24 02/29/24 06:59 18:59 06:59 Intake Total 699.308 448.416 Output Total 695 1210 Balance 4.308 -761.584 Weight 132.4 kg Intake: IV 378 92 CO/CI 80 Lactated Ringers 1,000 ml 220 80 @ 20 mls/hr IV .Q24H YA Rx#:[id number] Pressure Bags 78 12 Intake, IV Titration 81.308 18.416 Amount DOPamine DRIP 800 mg In 17.121 Dextrose/Water 1 250ml. bag @ 1 MCG/KG/MIN 2.389 mls/hr IV .Q24H YA Rx#: [id number] Insulin Regular 100 unit 64.187 18.416 In Sodium Chloride 0.9% 100 ml @ Per Protocol IV .Q0M YA Rx#:[id number] Oral 240 338 Output: Chest Tube Drainage 95 10 Chest Tube Left Lateral 95 10 Chest Urine 300 1200 Post Void Residual 300 Other: Voiding Method Toilet Toilet Urinal Urinal # Voids 1 1 ABP, PAP, CO, CI - Last Documented Arterial Blood Pressure 90/47 Pulmonary Artery Pressure 33/20 Cardiac Output 6.6 Cardiac Index 2.8 - Labs CBC & Chem 7: 02/29/24 06:47 02/29/24 06:47 Labs: Abnormal Lab Results - Last 24 Hours (Table) 02/28/24 02/28/24 02/28/24 Range/Units 06:15 06:15 06:23 WBC 14.4 H (3.8-10.6) k/uL RBC 2.86 L (4.30-5.90) m/uL Hgb 8.6 L (13.0-17.5) gm/dL Hct 28.0 L (39.0-53.0) % MCHC 30.6 L (31.0-37.0) g/dL Plt Count 136 L (150-450) k/uL Neutrophils # 12.0 H (1.3-7.7) k/uL Monocytes # 1.1 H (0-1.0) k/uL Sodium 134 L (137-145) mmol/L Carbon Dioxide 20 L (22-30) mmol/L Creatinine 1.27 H (0.66-1.25) mg/dL Glucose 139 H (74-99) mg/dL POC Glucose (mg/dL) 149 H (70-110) mg/dL Total Protein 5.4 L (6.3-8.2) g/dL Albumin 3.4 L (3.5-5.0) g/dL 02/28/24 02/28/24 02/28/24 Range/Units 07:01 08:35 11:14 WBC (3.8-10.6) k/uL RBC (4.30-5.90) m/uL Hgb (13.0-17.5) gm/dL Hct (39.0-53.0) % MCHC (31.0-37.0) g/dL Plt Count (150-450) k/uL Neutrophils # (1.3-7.7) k/uL Monocytes # (0-1.0) k/uL Sodium (137-145) mmol/L Carbon Dioxide (22-30) mmol/L Creatinine (0.66-1.25) mg/dL Glucose (74-99) mg/dL POC Glucose (mg/dL) 156 H 143 H 139 H (70-110) mg/dL Total Protein (6.3-8.2) g/dL Albumin (3.5-5.0) g/dL 02/28/24 02/28/24 Range/Units 16:11 20:46 WBC (3.8-10.6) k/uL RBC (4.30-5.90) m/uL Hgb (13.0-17.5) gm/dL Hct (39.0-53.0) % MCHC (31.0-37.0) g/dL Plt Count (150-450) k/uL Neutrophils # (1.3-7.7) k/uL Monocytes # (0-1.0) k/uL Sodium (137-145) mmol/L Carbon Dioxide (22-30) mmol/L Creatinine (0.66-1.25) mg/dL Glucose (74-99) mg/dL POC Glucose (mg/dL) 143 H 139 H (70-110) mg/dL Total Protein (6.3-8.2) g/dL Albumin (3.5-5.0) g/dL
[2024-03-01 06:14] LABS: Glucose,Whole Blood 131 mg/dL (70-110)
--- NOTE | 2024-03-01 08:42 | XR ---
EXAMINATION TYPE: XR chest 1V portable DATE OF EXAM: 03/01/2024 Comparison: 02/29/2024 Clinical History: 73-year-old male Postoperative CABG Findings: Median sternotomy wires. Heart mildly enlarged. Low lung volumes with crowded vascular markings. Left basilar underpenetrated and not well assessed. Some blunting of the right costophrenic angle. Impression: Some worsening aeration. Limited by portable technique and hypoventilatory changes. Unable to exclude abnormal opacity in the retrocardiac left base. Unable to exclude a trace right pleural effusion.
[2024-03-01 09:11] LABS: HGB 8.6 gm/dL (13.0-17.5); Hypochromasia Slight; MCHC 31.8 g/dL (31.0-37.0); MCV 97.5 fL (80.0-100.0); Mean Platelet Volume 10.2; Platelet Count 221 k/uL (150-450); RBC 2.77 m/uL (4.30-5.90); RDW 14.3 % (11.5-15.5); WBC 11.8 k/uL (3.8-10.6)
[2024-03-01 09:21] LABS: African American GFR (CKD) 67 (>60 ml/min/1.73 sqM); Anion Gap 7 mmol/L; Blood Urea Nitrogen 26 mg/dL (9-20); Calcium 8.9 mg/dL (8.4-10.2); Carbon Dioxide 26 mmol/L (22-30); Chloride 104 mmol/L (98-107); Glucose 135 mg/dL (74-99); Non-African American GFR(CKD) 58 (>60 ml/min/1.73 sqM); Sodium 137 mmol/L (137-145)
--- NOTE | 2024-03-01 09:41 | US ---
EXAMINATION TYPE: US chest DATE OF EXAM: 03/01/2024 COMPARISON: 03/01/2024 CLINICAL INDICATION: Male, 73 years old with history of left chest pleural effusion; TECHNIQUE: Targeted ultrasound of the posterior lower bilateral hemithoraces EXAM MEASUREMENTS: Left Pleural Effusion pocket size: 4.4 cm Left skin surface to fluid distance: 3.6 cm Right side NOT marked for possible thoracentesis outside the dept. due to lung tissue. Left side marked for possible thoracentesis outside the dept. Pulmonologists are able to review the images in the patient?s EMR. IMPRESSIONS: Left side marked for possible thoracentesis.
[2024-03-01] MEDS: guaiFENesin 600 MG TABLET.ER PO SCH (10:00)
[2024-03-01] MEDS: FUROSEMIDE 40 MG TAB PO SCH (10:01)
[2024-03-01] MEDS: LINAGLIPTIN 5 MG TABLET PO SCH (10:01)
[2024-03-01] MEDS: INSULIN DETEMIR (LEVEMIR) 100 UNIT/ML SYR SQ SCH (10:08)
--- NOTE | 2024-03-01 10:42 | P.PN ---
Subjective Progress Note Date: 03/01/24 Principal diagnosis: Coronary artery disease. Past medical history significant for coronary artery disease with history of myocardial infarction, hypertension, hyperlipidemia, car diomyopathy/chronic diastolic heart failure with an ejection fraction of 45-50%, diabetes, chronic kidney disease stage III, asthma, obstructive sleep apnea with home CPAP use, SVT status post cardioversion 20 years ago, chronic back pain on chronic narcotics, psoriasis on methotrexate outpatient, GERD, morbid obesity with a BMI of 44.5 kg/m, and is a lifelong non-smoker. POD #4 off-pump CABG x 4 with PARKS to LAD, sequential left radial artery graft off the PARKS to intermediate and first diagonal, saphenous vein graft to PDA, endovascular vein harvest, endovascular left radial artery harvest, ligation of the left atrial appendage with 35mm AtriCure clip and intraoperative transesophageal echocardiogram completed by anesthesia. Postoperative acute blood loss anemia, expected given hemodilution. The patient was seen and examined in follow-up today March 01, 2024 at his bedside on the third floor cardiac stepdown unit. He is currently laying in bed, is awake, alert, oriented x 3 and is in no acute apparent distress. Denies any complaints of pain or shortness of breath at this time. The patient reports his cough has improved today. Oxygen saturations are 93% on room air and he is achieving 1500 mL on his incentive spirometry with encouragement. Remote telemetry is showing normal sinus rhythm heart rate 90 bpm. The patient remains on midodrine for blood pressure support. He remains hemodynamically stable and is currently on no inotropic or pressor support. Chest x-ray and laboratory results were reviewed. The patient reports he has been up ambulating in the cardiac stepdown unit hallway with standby assistance from nursing and therapy staff, and tolerated well. First postoperative shower was yesterday February 29, 2024. Objective - Vital Signs Vital signs: Vital Signs Temp 98.1 F 03/01/24 08:00 Pulse 89 03/01/24 08:00 Resp 18 03/01/24 08:00 BP 109/74 03/01/24 08:00 Pulse Ox 95 03/01/24 08:00 FiO2 100 02/26/24 15:41 Intake & Output 02/29/24 03/01/24 03/01/24 18:59 06:59 18:59 Intake Total 220 1080 540 Output Total 600 550 300 Balance -380 530 240 Weight 132.3 kg Intake: Oral 220 1080 540 Output: Urine 600 550 300 Other: Voiding Method Toilet Toilet Urinal Urinal ABP, PAP, CO, CI - Last Documented Arterial Blood Pressure 90/47 Pulmonary Artery Pressure 33/20 Cardiac Output 6.6 Cardiac Index 2.8 - Exam CONSTITUTIONAL: Appears somewhat comfortable, cooperative, no acute distress. RESPIRATORY: Lungs sounds diminished bilaterally. Respirations symmetrical, nonlabored. Currently on room air with oxygen saturation 93%. Able to achieve 1500 mL on incentive spirometry. Strong cough. CARDIOVASCULAR: S1, S2 present. Regular rate and rhythm, Sinus rhythm on telemetry, heart rate 90 bpm. Sternum stable. Palpable peripheral pulses bilaterally. Trace generalized edema present. No calf pain or tenderness noted. Heart hugger in place with patient demonstrating appropriate use. Antiembolism stockings, SCDs present. GASTROINTESTINAL: Abdomen soft, nontender, nondistended, obese. Active bowel sounds present 4 quadrants. Tolerating diet. Passing flatus. GENITOURINARY: Continues to void. INTEGUMENTARY: Skin is warm and dry with no clubbing or cyanosis. Midline sternal incision well approximated and covered with dry intact dressing. Left radial artery harvest site well approximated without redness or drainage. Left lower extremity EVH sites clean dry and approximated. NEUROLOGIC: Cranial nerves II through XII intact. No focal deficits. MUSKULOSKELETAL: Able to move all extremities, strength equal bilaterally. PSYCHIATRIC: Alert and oriented to person place and time, appropriate affect, intact judgment and insight. - Allied health notes Allied health notes reviewed: nursing - Labs CBC & Chem 7: 03/01/24 08:43 03/01/24 08:43 Labs: Abnormal Lab Results - Last 24 Hours (Table) 02/29/24 02/29/24 02/29/24 Range/Units 12:03 16:13 20:03 WBC (3.8-10.6) k/uL RBC (4.30-5.90) m/uL Hgb (13.0-17.5) gm/dL Hct (39.0-53.0) % BUN (9-20) mg/dL Glucose (74-99) mg/dL POC Glucose (mg/dL) 152 H 125 H 117 H (70-110) mg/dL 03/01/24 03/01/24 03/01/24 Range/Units 06:13 08:43 08:43 WBC 11.8 H (3.8-10.6) k/uL RBC 2.77 L (4.30-5.90) m/uL Hgb 8.6 L (13.0-17.5) gm/dL Hct 27.0 L (39.0-53.0) % BUN 26 H (9-20) mg/dL Glucose 135 H (74-99) mg/dL POC Glucose (mg/dL) 131 H (70-110) mg/dL - Imaging and Cardiology Chest x-ray: report reviewed, image reviewed Assessment and Plan Assessment: Coronary artery disease with previous myocardial infarction, status post four- vessel off-pump CABG History of hypertension, episodes of hypotension currently on midodrine Hyperlipidemia, treated, cholesterol 93, LDL 17.5, triglycerides 201 Cardiomyopathy/chronic diastolic heart failure with reduced ejection fraction, EF 45-50% Diabetes mellitus type II, preoperative hemoglobin A1c 7.3% Chronic kidney disease stage III Asthma Obstructive sleep apnea with home CPAP use History of SVT status post cardioversion 20 years ago Chronic back pain on chronic narcotics Psoriasis on methotrexate outpatient GERD Morbid obesity Lifelong non-smoker, preoperative FEV1 58% of predicted Postoperative acute blood loss anemia, expected given hemodilution Plan: Continue to maximize medical therapy with aspirin, statin, Plavix, and beta- cristo. Will increase beta-cristo as tolerated, with hold parameters. Continue midodrine to support blood pressure. Will add an oral calcium channel cristo for radial artery spasm prophylaxis when able. Encourage incentive spirometry use 10 times every hour while awake. Bronchodilators per pulmonology. Increase activity, ambulate as tolerated. PT/OT/cardiac rehab following. Will monitor daily labs and chest x-rays. Electrolyte replacement per protocol. Avoid nephrotoxins. Will restart his home dose of Lasix 40 mg p.o. daily. GI/DVT prophylaxis. Pain control with current medication regimen. Insulin management per internal medicine. Preoperative hemoglobin A1c 7.3%. Continue to monitor strict accurate intake and output. Daily weights. Shower daily. Discharge planning is in place. Anticipate to inpatient rehab in the next 24 hours. More recommendations to follow based on patient's clinical course. Time with Patient: Greater than 30
[2024-03-01 11:42] LABS: Glucose,Whole Blood 135 mg/dL (70-110)
[2024-03-01 13:41] VITALS: BP 100/71; PULSE 87; TEMP 98.3
--- NOTE | 2024-03-01 13:41 | P.DS ---
Providers Date of admission: 02/26/24 05:34 Expected date of discharge: 03/01/24 Attending physician: Cristino Samson Consults: 02/26/24 12:46 Consult Physician Routine Consulting Provider: Jose Hughes Consult Reason/Comments: Simulation Developer Consult: post cardiac surgery Do you want consulting provider notified?: Yes Consult Physician Routine Consulting Provider: Júnior Paniagua Consult Reason/Comments: med mgmt Do you want consulting provider notified?: Yes Consult Physician Routine Consulting Provider: Jake Mckeon Consult Reason/Comments: Outpatient Program Coordinator Consult: post cardiac surgery Do you want consulting provider notified?: Yes 02/29/24 07:12 Consult Physician Routine Consulting Provider: Emeka Matias Consult Reason/Comments: IPR at DC Do you want consulting provider notified?: Yes Primary care physician: Júnior Paniagua [facility] Course: FINAL DIAGNOSIS: Coronary artery disease with previous myocardial infarction, status post four- vessel off-pump CABG History of hypertension, episodes of hypotension currently on midodrine Hyperlipidemia, treated, cholesterol 93, LDL 17.5, triglycerides 201 Cardiomyopathy/chronic diastolic heart failure with reduced ejection fraction, EF 45-50% Diabetes mellitus type II, preoperative hemoglobin A1c 7.3% Chronic kidney disease stage III Asthma Obstructive sleep apnea with home CPAP use History of SVT status post cardioversion 20 years ago Chronic back pain on chronic narcotics Psoriasis on methotrexate outpatient GERD Morbid obesity Lifelong non-smoker, preoperative FEV1 58% of predicted Postoperative acute blood loss anemia, expected given hemodilution PRINCIPAL PROCEDURE: 1. Off-pump coronary artery bypass grafting surgery x 4 with left internal mammary artery to left anterior descending coronary artery, sequential left radial artery graft off the left internal mammary artery to the intermediate and first diagonal coronary artery, saphenous vein graft to the posterior descending coronary artery. 2. Endovascular left greater saphenous vein harvest 3. Endovascular left radial artery harvest 4. Ligation of the left atrial appendage with a 35 mm Atricure clip HISTORY OF PRESENT ILLNESS: This is a 73-year-old gentleman who follows on outpatient basis with Dr. Júnior Paniagua for his primary care, Dr. LIDA Monique for his pulmonary care and with Dr. SUSAN Monique for his cardiology care. Recently, the patient has been experiencing episodes of progressive shortness of breath with activity, episodes of nausea chest pain and diaphoresis. Subsequently, he presented to Dr. Monique's office with the above-mentioned symptoms, he was recommended to undergo coronary angiography and optimize medical therapy. Medications were adjusted by Dr. Monique with the addition of nitrates. The heart catheterization was completed on February 02, 2024 which revealed a right dominant system with total occlusion of the mid right coronary artery as well as the mid left anterior descending coronary artery with collaterals ipsilateral from the LAD and contralateral from the circumflex coronary artery to the right coronary artery with an 80% ostial circumflex lesion that was found to be heavily calcified. A transthoracic 2D echocardiogram was also completed which demonstrated severely increased left ventricular mass, mildly reduced global left ventricular systolic function with the left ventricular ejection fraction of 45 to 50%, grade 2 diastolic dysfunction, no mitral valve stenosis, regurgitation or prolapse, no aortic valve stenosis or regurgitation, mild tricuspid valve regurgitation, no pericardial effusion and a normal size aortic root and proximal ascending aorta. Subsequently, due to the findings on the cardiac catheterization and progression of his disease he was referred to Dr. Cristino Samson from cardiothoracic surgery for further evaluation and treatment recommendations including myocardial revascularization surgery. The patient was seen and evaluated by Dr. Samson on February 08, 2024 as an outpatient, Dr. Samson reviewed the findings on the cardiac catheterization films with the patient and the patient's , treatment options were discussed including myocardial vascularization surgery. Risks and benefits of surgery were discussed, including the STS risk or and knowing and understanding the risks of myocardial revascularization surgery he wished to proceed with the surgical option. A clinical frailty score was calculated, and his scoring was 4. The patient was scheduled for elective myocardial vascularization surgery. HOSPITAL COURSE: The patient was brought to the preoperative area on 02/26/24 and after obtaining consent, was prepared in the usual fashion, and subsequently taken to the operating room where Dr. Samson performed an off-pump CABG x 4. Upon completion of surgery the patient was transferred to the cardiovascular intensive care unit where he was recovered and monitored hemodynamically. He was extubated, all lines, tubes, and drips were discontinued when appropriate, and he was transferred to 3 cardiac stepdown unit for further monitoring and rehabilitation. His oxygen was titrated down, he continued to work with physical and occupational therapy, he was tolerating an oral diet, his pain was controlled, and he was ready to be discharged to inpatient rehab at [facility] on postoperative day #4. He received written and verbal instruction regarding his medications, activity restrictions, signs and symptoms requiring physician notification, and his follow-up appointments. Plan - Discharge Summary Discharge Rx Participant: No New Discharge Prescriptions: New Aspirin 325 mg PO DAILY tab Ipratropium-Albuterol Nebulize [Duoneb 0.5 mg-3 mg/3 ml Soln] 3 ml INHALATION RT-QID each Heparin Sodium,Porcine (1 ml) [Heparin Sodium] 5,000 unit SQ Q8HR each Insulin Detemir (Levemir) [Levemir] 20 unit SQ DAILY@0900 each Magnesium Hydroxide [Milk of Magnesia] 2,400 mg PO BID PRN ml PRN Reason: Constipation guaiFENesin [Mucinex] 1,200 mg PO Q12HR tab Clopidogrel [Plavix] 75 mg PO DAILY tab Midodrine [ProAmatine] 5 mg PO TID tab Linagliptin [Tradjenta] 10 mg PO DAILY tab Acetaminophen Tab [Tylenol] 650 mg PO Q4HR PRN tab PRN Reason: Fever And/ Or Pain Brimonidine Tartrate [Alphagan P 0.2% Ophth Soln] 1 drops BOTH EYES DAILY PRN ml PRN Reason: visual disturbances bisacodyL [Dulcolax] 10 mg RECTAL DAILY PRN suppositor PRN Reason: Constipation Ipratropium-Albuterol Nebulize [Duoneb 0.5 mg-3 mg/3 ml Soln] 3 ml INHALATION RT-Q2H PRN each PRN Reason: Shortness Of Breath Or Wheezing Metoprolol Tartrate [Lopressor] 25 mg PO BID tab INSULIN ASPART (NovoLOG) [NovoLOG (formulary)] 0 unit SQ ACHS each methocarbamoL [Robaxin] 500 mg PO QID PRN tab PRN Reason: Breakthrough Pain Continue Pantoprazole Sodium 40 mg PO BID Docusate [Colace] 100 mg PO DAILY Magnesium 400 mg PO QAM Atorvastatin [Lipitor] 40 mg PO HS Furosemide [Lasix] 40 mg PO QAM Folic Acid 1 mg PO SUTUWETHFRSA Gabapentin 600 mg PO HS Gabapentin 300 mg PO QAM Cholecalciferol (Vitamin D3) [Vitamin D3 (50 Mcg = 2000 Iu)] 50 mcg PO QAM HYDROcodone/APAP 7.5-325MG [[place] 7.5-325] 1 tab PO Q6H PRN PRN Reason: Mild To Moderate Pain Discontinued metHOTREXate sodium 20 mg PO MO Aspirin EC [Ecotrin Low Dose] 81 mg PO QAM metFORMIN HCL [Glucophage] 500 mg PO BID Benralizumab [Fasenra] 1 dose SQ Q56D Clotrimazole/Betamethasone Dip [Clotrimazole-Betamethasone Lot] 1 applic TOPICAL DAILY PRN PRN Reason: Skin Irritation Losartan [Cozaar] 50 mg PO QAM Brimonidine 0.15% 1 drop BOTH EYES DAILY PRN PRN Reason: visual disturbances Spironolactone 12.5 mg PO QAM Econazole 1% Cream [Spectazole] 1 cream TOPICAL DAILY PRN PRN Reason: Skin Irritation Isosorbide Mononitrate ER [Imdur] 30 mg PO QAM Discharge Medication List Atorvastatin [Lipitor] 40 mg PO HS 12/17/21 [History] Folic Acid 1 mg PO SUTUWETHFRSA 06/23/23 [History] Furosemide [Lasix] 40 mg PO QAM 06/23/23 [History] Docusate [Colace] 100 mg PO DAILY 12/08/23 [History] Pantoprazole Sodium 40 mg PO BID 12/08/23 [History] Cholecalciferol (Vitamin D3) [Vitamin D3 (50 Mcg = 2000 Iu)] 50 mcg PO QAM 01/31/24 [History] Gabapentin 300 mg PO QAM 01/31/24 [History] Gabapentin 600 mg PO HS 01/31/24 [History] Magnesium 400 mg PO QAM 01/31/24 [History] HYDROcodone/APAP 7.5-325MG [[place] 7.5-325] 1 tab PO Q6H PRN 02/20/24 [History] Acetaminophen Tab [Tylenol] 650 mg PO Q4HR PRN tab 03/01/24 [Rx] Aspirin 325 mg PO DAILY tab 03/01/24 [Rx] Brimonidine Tartrate [Alphagan P 0.2% Oph Soln] 1 drops BOTH EYES DAILY PRN ml 03/01/24 [Rx] Clopidogrel [Plavix] 75 mg PO DAILY tab 03/01/24 [Rx] Heparin Sodium,Porcine (1 ml) [Heparin Sodium] 5,000 unit SQ Q8HR each 03/01/24 [Rx] INSULIN ASPART (NovoLOG) [NovoLOG (formulary)] 0 unit SQ ACHS each 03/01/24 [Rx] Insulin Detemir (Levemir) [Levemir] 20 unit SQ DAILY@0900 each 03/01/24 [Rx] Ipratropium-Albuterol Nebulize [Duoneb 0.5 mg-3 mg/3 ml Soln] 3 ml INHALATION RT-Q2H PRN each 03/01/24 [Rx] Ipratropium-Albuterol Nebulize [Duoneb 0.5 mg-3 mg/3 ml Soln] 3 ml INHALATION RT-QID each 03/01/24 [Rx] Linagliptin [Tradjenta] 10 mg PO DAILY tab 03/01/24 [Rx] Magnesium Hydroxide [Milk of Magnesia] 2,400 mg PO BID PRN ml 03/01/24 [Rx] Metoprolol Tartrate [Lopressor] 25 mg PO BID tab 03/01/24 [Rx] Midodrine [ProAmatine] 5 mg PO TID tab 03/01/24 [Rx] bisacodyL [Dulcolax] 10 mg RECTAL DAILY PRN suppositor 03/01/24 [Rx] guaiFENesin [Mucinex] 1,200 mg PO Q12HR tab 03/01/24 [Rx] methocarbamoL [Robaxin] 500 mg PO QID PRN tab 03/01/24 [Rx] Follow up Appointment(s)/Referral(s): Linda Monique MD [STAFF PHYSICIAN] - 1 Week [facility] [NON-STAFF] - 4 Weeks (You will receive a phone call in approximately 4-6 weeks for evaluation for cardiac rehab) Júnior Paniagua MD [Primary Care Provider] - 1 Week Cristino Samson MD [STAFF PHYSICIAN] - 03/28/24 2:00 pm Jean Claude Monique MD [STAFF PHYSICIAN] - 1 Week Activity/Diet/Wound Care/Special Instructions: Discharge to Inpatient Rehab: [facility] Second Floor Rehab Unit [address] [facility] [address] DISCHARGE INSTRUCTIONS: 1. No driving for 4 weeks, or until physician gives their ok. 2. The patient should sleep in their own bed, no medical bed needed. 3. Stairs are not an issue. If the bedroom is upstairs, it is advised that the patient go up at night and down in the morning for the first week. Go slowly, using handrail and take 1 step at a time. 4. OLGA hose are to be worn for 30 days post surgery or until physician discontinues. 5. Heart hugger is to be worn 100% of the time until physician discontinues.(except when showering) 6. No lifting, pushing, or pulling more than 10 pounds for 12 weeks. The physician will advise of any restriction changes. 7. The patient is expected to continue the prescribed walking program. 8. Continue pain control per as needed orders. 9. Continue with incentive spirometry and splinting/heart hugger until otherwise directed by the physician. 10. Must shower daily using liquid antibacterial soap 11. Routine sternal incision care. No powders, lotions, ointments on incisions. No dressings are necessary on incisions unless they are draining. Dermabond tape is to remain on sternal incision until surgeon follow-up. 12. Please call surgeon/IT ADMINISTRATIVE ASSISTANT for temp greater than 101 F or purulent drainage from incisions. 13. You should weigh yourself daily, record and bring log with you to follow up appointments. 14. All prescriptions given by surgeon for 30 days. Refills need to be filled through university controller/primary care physician. 15. A Red armband has been placed on the patient. It should be worn for 30 days post discharge from surgery and will be removed by the cardiac surgeons. If an ER visit is necessary, please make sure the number on the Red armband is called before going to ER. 16. You have been referred to and are expected to begin Cardiac Rehab in approximately 4-6 weeks. 17. Quitting smoking is the most important step you can take to improve your health. For additional information and assistance to quit smoking, please call the [place] tobacco quit line (3-829-YSUV-NOW/ ) or online: [email or web address].gov/[email or web address]-to-qu it-tobacco 18. Please consult Dr. Júnior Paniauga for medical management, Dr. SUSAN Monique for cardiology care and Dr. LIDA Monique for pulmonary care once arrives to [facility] inpatient rehab. 19. Will need a drawn CBC and CMP on Monday, March 04, 2024. HOME HEALTH SERVICES TO PROVIDE: RN SKILLED HOME CARE SERVICES FOR POST-OP SURGICAL PATIENTS WITH THE FOLLOWING: Coronary Artery Bypass Surgery (CABG), Mitral Valve Replacement/Repair ( MVR), Aortic Valve Replacement/Repair (AVR) RN TO CONTINUE EDUCATION FROM ``ROAD TO A HEALTH HEART PATIENT EDUCATION MANUAL (GIVEN TO PATIENT IN THE HOSPITAL) MEDICATION RECONCILIATION WITH EDUCATION NEEDED ON FIRST HOME VISIT EMPHASIZE IMPORTANCE OF WEARING BREAST SUPPORT/HEART HUGGER ENCOURAGE USE OF INCENTIVE SPIROMETER 10 X EVERY HOUR WHILE AWAKE ENCOURAGE UTILIZATION OF LOWER EXTREMITY COMPRESSION STOCKINGS/OLGA HOSE and ELEVATE LEGS ABOVE LEVEL OF HEART WHILE AT REST. ENCOURAGE AMBULATION 3-5x/day INCREASING TOLERATES, WHILE AVOIDING EXTREMES IN TEMPERATURE FREQUENCY: RN TO OPEN THE PATIENT WITHIN 24 HOURS OF DISCHARGE FROM THE HOSPITAL WITH TELEHEALTH INSTALLED AT [facility], RN TO VISIT 2-3 X A WEEK FOR 4 WEEKS ESTABLISHED BY PATIENT NEEDS. LABORATORY: CBC, CMP TO BE DRAWN ON THE THIRD DAY HOME, (RAN STAT) FAX RESULTS TO [phone]. TELEHEALTH PARAMETERS: WEIGHT: NOTIFY MD OF WEIGHT GAIN OF 2 LBS IN 24 HOURS OR 5 LBS IN ONE WEEK HR: NOTIFY MD OF HR <55 BPM OR HR>100 BPM BP: NOTIFY MD IF BP <90/55 OR BP>140/100 O2 SAT: NOTIFY MD IF PO2<93% ON ROOM AIR SEND TELEHEALTH REPORT TO DASHBOARD DEVELOPER AND CARDIOVASCULAR SURGEON THE FIRST WEEK OF CARE AND THEN BI-WEEKLY. PLEASE ADDITIONALLY COMMUNICATE ANY ABNORMALS AND NEW FINDINGS TO THE SURGEONS OFFICE. Discharge Disposition: OTHER INSTITUTION NOT DEFINED
--- NOTE | 2024-03-01 14:42 | P.PN ---
Subjective Progress Note Date: 03/01/24 Principal diagnosis: Status post open heart surgery. This is a 73-year-old male patient with a known history of obstructive sleep apnea, obesity, asthma, psoriasis, chronic back pain. FEV1 value is 60% of predicted. He was recently found to have significant coronary artery disease and was brought in today electively for bypass surgery. He did undergo off-pump coronary artery bypass grafting x 4 with a PARKS to the LAD, sequential left radial artery graft to the intermediate and first diagonal, SVG to the PDA. Ligation of the left atrial appendage with a 35 mm AtriCure clip. He is seen in follow-up in the intensive care unit. He is intubated on the mechanical ventila tor. He is currently on pressure support of 10 and CPAP of 5 with 50% FiO2. His sedation is off. Plan is for early extubation protocol. Arterial blood gases revealed a PaO2 of 256, pCO2 of 45 and a pH of 7.32. His cardiac output is 7.2. Cardiac index 3.1. PA pressure 29/15. CVP 11. He is on lactated Ringer's at 50 MLS per hour. A Cardizem drip at 5 mg/h. Nitroglycerin drip at 5 mcg/min, insulin drip at 6 units/h. Dopamine drip at 3 mcg/kg/min. Mediastinal split chest tube and a left pleural chest tubes are in place. Dust x-ray reveals catheters and drains in appropriate position. Postoperative changes. No pneumothorax. White count 16.3. Hemoglobin 10.1. Platelets 145. Sodium 139. Potassium 4.0. Bicarb 21. BUN 22. Creatinine 1.15. Glucose 167. He is initiated on bronchodilators. Heparin for DVT prophylaxis. The patient is seen today February 27, 2024 in follow-up in the intensive care unit. He is currently sitting up in a chair. Awake and alert in no acute distress. Maintaining O2 saturations in the 90s on 3 L/min per nasal cannula. X-ray reveals atelectasis in the lung bases left greater than right. White count 21.1. Hemoglobin 9.5. Platelets 148. Sodium 136. Potassium 4.3. Bicarb 23. BUN 23. Creatinine 1.27. Glucose 111. Cardiac output 8.4. Cardiac index 3.6. PA pressure 26/8. CVP 2. He did receive albumin today. He is currently on do pamine drip at 4 mcg/kg/min. Remains on insulin drip at 8 units/h. Lactated Ringer's at 20 MLS per hour. Heparin for DVT prophylaxis. Remains on bronchodilators. Working well with the incentive spirometer. The patient is seen today February 28, 2024 in follow-up in the intensive care unit. He is awake and alert in no acute distress. He is currently sitting up in a chair at the bedside. He is maintaining good O2 saturations in the 90s on 2 L/min per nasal cannula. Continues to work well with the incentive spirometer. Chest x-ray reveals postsurgical changes. No evidence of pneumothorax. Heparin for DVT prophylaxis. White count 14.4. Hemoglobin 8.6. Platelets 136. Sodium 134. Potassium 4.3. Bicarb 20. BUN 20. Creatinine 1.27. Glucose 139. Progress note dated February 29, 2024. The patient is seen today in room 370. He is sitting in the chair, next to his bed. He is not receiving any supplemental oxygen, or IV fluids. He is postoperative day #3, status post off-pump four-vessel bypass surgery. Clinically, he has no complaints. Current labs include a white count 14, hemoglobin 8.6, hematocrit 27.6, and a normal platelet count. Sodium 136, potassium 4.2, chlorides 104, CO2 23, BUN 25, creatinine 1.23. Glucose is 152. Magnesium is 2.5. Chest x-ray today shows chest tubes and [place] catheter, to have been removed. There are postoperative changes noted bilaterally, particularly at the bases. Progress note dated March 01, 2024. The patient is seen today in room 370. The patient is doing relatively well. He is on room air. He is not requiring any fluids. The patient denies shortness of breath, cough, wheezing, chest tightness. The patient denies any chest pain or pressure. He has a number of questions. The patient will be discharged to inpatient rehab, at [facility]. The white count 11.8, hemoglobin 8.6, hematocrit 27, platelet count 221,000. Sodium 137, potassium 4, chlorides 104, CO2 26, BUN 26, creatinine 1.25. Glucose is 135. Calcium is 8.9. Chest x-ray shows some worsening aeration, and some pleural effusion, at the left lung base. Objective - Vital Signs Vital signs: Vital Signs Temp 98.3 F 03/01/24 12:00 Pulse 87 03/01/24 12:00 Resp 18 03/01/24 12:00 BP 100/71 03/01/24 12:00 Pulse Ox 92 L 03/01/24 12:00 FiO2 100 02/26/24 15:41 Intake & Output 02/29/24 03/01/24 03/01/24 18:59 06:59 18:59 Intake Total 220 1080 780 Output Total 600 550 600 Balance -380 530 180 Weight 132.3 kg Intake: Oral 220 1080 780 Output: Urine 600 550 600 Other: Voiding Method Toilet Toilet Toilet Urinal Urinal Urinal ABP, PAP, CO, CI - Last Documented Arterial Blood Pressure 90/47 Pulmonary Artery Pressure 33/20 Cardiac Output 6.6 Cardiac Index 2.8 - Exam No acute distress, oriented 3. He on room air. Saturations are 95%. HEENT examination is grossly unremarkable. Mucous membranes are moist. No oral lesions. Neck supple. Full range of motion. No adenopathy thyromegaly or neck vein distention. Cardiovascular examination reveals regular rhythm rate. S1-S2 normal. No S3 or S4. No discernible murmur noted. Heart rate 87 bpm. Lungs reveal minimal basilar rhonchi. No wheezes or crackles. Breath sounds equal bilaterally. Saturations are excellent on room air. Abdomen soft bowel sounds are heard. No masses or tenderness. Extremities are intact. No cyanosis clubbing or edema. Skin is without rash or lesion. Neurologic examination is brief but nonfocal. - Labs CBC & Chem 7: 03/01/24 08:43 03/01/24 08:43 Labs: Abnormal Lab Results - Last 24 Hours (Table) 02/29/24 02/29/24 03/01/24 Range/Units 16:13 20:03 06:13 WBC (3.8-10.6) k/uL RBC (4.30-5.90) m/uL Hgb (13.0-17.5) gm/dL Hct (39.0-53.0) % BUN (9-20) mg/dL Glucose (74-99) mg/dL POC Glucose (mg/dL) 125 H 117 H 131 H (70-110) mg/dL 03/01/24 03/01/24 03/01/24 Range/Units 08:43 08:43 11:40 WBC 11.8 H (3.8-10.6) k/uL RBC 2.77 L (4.30-5.90) m/uL Hgb 8.6 L (13.0-17.5) gm/dL Hct 27.0 L (39.0-53.0) % BUN 26 H (9-20) mg/dL Glucose 135 H (74-99) mg/dL POC Glucose (mg/dL) 135 H (70-110) mg/dL Assessment and Plan Assessment: Coronary artery disease status post off-pump coronary artery bypass grafting x 4 with a PARKS to the LAD, sequential left radial artery graft to the first diagonal and intermediate, SVG to the PDA. Left atrial appendage ligation with clipping using 35mm atrial cure clip. Postoperative day #4. Routine postoperative ventilator management. Obesity. Obstructive sleep apnea. Gastroesophageal reflux disease. History of asthma, mild and intermittent. History of psoriatic arthritis. Chronic back pain. Hyperlipidemia. Hypertension. Plan: Plan dated February 29, 2024. The patient appears to be doing relatively well. The patient continues to deep breathe, cough, clear secretions. The patient continues to use the incentive spirometer, every hour while awake. We will continue to follow make recommendations along the way. Labs, x-rays, and all medications have been reviewed. Prognosis is guarded. Plan dated March 01, 2024. The patient is seen today room 370. He is on room air. Is not receiving any IV fluids. The patient is hoping to be discharged home. Likely, the patient will end up going to inpatient rehab at [facility]. Labs, x-rays, and medications are reviewed. The patient denies any respiratory issues such as shortness of breath, cough, wheezing, chest tightness, or phlegm production. He also denies any chest pain or pressure. The patient had an ultrasound, she reviewed which revealed a very small pleural effusion. Thoracentesis is not necessary, and would likely be dangerous in this patient. Time with Patient: Less than 30
--- NOTE | 2024-03-01 16:20 | CDI ---
Documentation Clarification Form Date: 03/01/2024 05:40:00 PM From: Sugar Angel Phone: [phone] Admit Date: 02/26/2024 05:34:00 AM Patient Name: Kar Moncada Visit Number: [id number] Discharge Date: 03/01/2024 02:45:00 PM ATTENTION: The Clinical Documentation Specialists (CDI) and [facility] Coding Staff appreciate your assistance in clarifying documentation. Please respond to the clarification below the line at the bottom and electronically sign. The CDI & [facility] Coding staff will review the response and follow-up if needed. Please note: Queries are made part of the Legal Health Record. If you have any questions, please contact the author of this message via ITS. Torres WHITMAN Hypotensive postoperatively is documented in the Cardiology process notes on 02/27 and also hypotensive on dopamine documented by the attending on 02/27, and patient had Off-pump CABG x 4 on 02/26/24. Additional clarification is requested regarding the relationship, if any, that exists between the diagnosis and the procedure. Patients Admitting Diagnosis: Coronary artery disease Post-Operative Diagnosis: Same Procedure performed: Off-pump CABG x 4 with PARKS to LAD, sequential left radial artery graft off the PARKS to intermediate and first diagonal, saphenous vein graft to PDA, endovascular vein harvest, endovascular left radial artery harvest, ligation of the left atrial appendage with 35mm AtriCure clip. History/Risk Factors: Coronary artery disease, Obesity, Psoriasis, stage IIIa chronic kidney, obstructive sleep apnea using CPAP, Hyperlipidemia: Clinical Indicators: 73-year-old male with Coronary artery disease present for elective CABG. 02/27 attending progress notes: Blood pressure soft although mean arterial pressure stable. Dopamine was stopped overnight due to tachycardia, blood pressure was stable at that time, and then this morning his systolic pressure was back in the 90s although his mean arterial pressure was stable and he was restarted on low-dose dopamine. 02/27 VS (08:45) 84/61 97 19 99% 2/L NC (11:00) 89/63 8717 (Mean )70 History of hypertension, currently hypotensive on dopamine 02/27 Cardiology progress notes; Hypertension, borderline blood pressures previously hypotensive postoperatively Treatment: ICU/Cardiac monitoring Dopamine Drip 02/25-02/27 Midodrine 5 MG PO TID 02/27-03/01 What relationship, if any, exists between the diagnosis of hypotensive postoperatively and the procedure: [ ] Hypotension is a complication of surgical procedure [ ] Hypotension is an expected outcome of the surgical procedure [ x ] Hypotension is related to patients co-morbid condition(s) of [insert co- morbid dxs] & not a complication of the procedure. [ ] Other please specify ____ [ ] Unable to determine (Template Last Revised: November 2020) MTDD
--- NOTE | 2024-03-04 21:54 | CDI ---
Documentation Clarification Form Date: 03/04/2024 09:36:48 PM From: Magy Khalil Phone: Admit Date: 02/26/2024 05:34:00 AM Patient Name: Kar Moncada Visit Number: [id number] Discharge Date: 03/01/2024 02:45:00 PM ATTENTION: The Clinical Documentation Specialists (CDI) and [facility] Coding Staff appreciate your assistance in clarifying documentation. Please respond to the clarification below the line at the bottom and electronically sign. The CDI & [facility] Coding staff will review the response and follow-up if needed. Please note: Queries are made part of the Legal Health Record. If you have any questions, please contact the author of this message via ITS. Dr. Júnior Paniagua Your patient has an abnormal lab value: [id number] 7.3. Please clarify if there is an additional diagnosis and/or clinical significance related to this value. History/Risk Factors: 73yo M, CAD sp CABG, Hx RI, HTN, HLD, CM, CHF, DMII with CKD 3a, asthma,JOSÉ LUIS, CBP on chronic narcotics,psoriasis, GERD,morbid obesity, PO ABLA Clinical indicators: Glucose: 02/25 133- 176 02/26 111-176 02/27 113-171 02/28 130-156 Treatment: INSULIN ASPART (Novolog) 0 unit SQ ACHS 02/27; Insulin Detemir (Levemir) 20 unit SQ DAILY Home Medications:metformin HCL [Glucophage] 500 mg PO BID; empagliflozin [From Jardiance]; semaglutide [From Ozempic]Allergy Is there an additional diagnosis and/or clinical significance related to the above lab result/information? [ XX ] Diabetes Mellitus Type II with hyperglycemia [ ] No additional diagnosis/Not clinically significant [ ] Other, please specify [ ] Unable to determine (Template Last Revised: October 2020) MTDD
== END 2024-03-01 14:45 | DRG 236 ==
LOC: 2ORMAIN 05:34 → 2SICU 13:22 → 3SCARD 02-28 16:45
PROVIDERS: ADMIT Thoracic Surgery (Cardiothoracic Vascular Surgery); ATTEND Thoracic Surgery (Cardiothoracic Vascular Surgery)
PROC: 06BQ4ZZ Excision of Left Saphenous Vein, Percutaneous Endoscopic Approach (ICD-10-PCS; 2024-02-26)
PROC: 03BC4ZZ Excision of Left Radial Artery, Percutaneous Endoscopic Approach (ICD-10-PCS; 2024-02-26)
PROC: 02L70CK Occlusion of Left Atrial Appendage with Extraluminal Device, Open Approach (ICD-10-PCS; 2024-02-26)
PROC: B24BZZ4 Ultrasonography of Heart with Aorta, Transesophageal (ICD-10-PCS; 2024-02-26)
PROC: 3E033XZ Introduction of Vasopressor into Peripheral Vein, Percutaneous Approach (ICD-10-PCS; 2024-02-26)
PROC: 30233J1 Transfusion of Nonautologous Serum Albumin into Peripheral Vein, Percutaneous Approach (ICD-10-PCS; 2024-02-26)
PROC: 02100Z9 Bypass Coronary Artery, One Artery from Left Internal Mammary, Open Approach (ICD-10-PCS; principal; 2024-02-26 08:00)
PROC: 02110A3 Bypass Coronary Artery, Two Arteries from Coronary Artery with Autologous Arterial Tissue, Open Approach (ICD-10-PCS; 2024-02-26 08:00)
PROC: 0210093 Bypass Coronary Artery, One Artery from Coronary Artery with Autologous Venous Tissue, Open Approach (ICD-10-PCS; 2024-02-26 08:00)
DX: I25.118 Atherosclerotic heart disease of native coronary artery with other forms of angina pectoris (principal); Z68.41 Body mass index [BMI] 40.0-44.9, adult; I13.0 Hypertensive heart and chronic kidney disease with heart failure and stage 1 through stage 4 chronic kidney disease, or unspecified chronic kidney disease; I50.22 Chronic systolic (congestive) heart failure; D62 Acute posthemorrhagic anemia; I42.8 Other cardiomyopathies; L40.50 Arthropathic psoriasis, unspecified; E66.01 Morbid (severe) obesity due to excess calories; E11.42 Type 2 diabetes mellitus with diabetic polyneuropathy; E11.22 Type 2 diabetes mellitus with diabetic chronic kidney disease; N18.31 Chronic kidney disease, stage 3a; E11.65 Type 2 diabetes mellitus with hyperglycemia; I95.89 Other hypotension; I25.82 Chronic total occlusion of coronary artery; J45.998 Other asthma; G47.33 Obstructive sleep apnea (adult) (pediatric); M54.50 Low back pain, unspecified; G89.29 Other chronic pain; E78.5 Hyperlipidemia, unspecified; I25.2 Old myocardial infarction; K21.9 Gastro-esophageal reflux disease without esophagitis; K44.9 Diaphragmatic hernia without obstruction or gangrene; I49.3 Ventricular premature depolarization; M79.18 Myalgia, other site; L40.9 Psoriasis, unspecified; N40.0 Benign prostatic hyperplasia without lower urinary tract symptoms; H18.513 Endothelial corneal dystrophy, bilateral; Z79.82 Long term (current) use of aspirin; Z79.84 Long term (current) use of oral hypoglycemic drugs; Z79.899 Other long term (current) drug therapy; Z88.8 Allergy status to other drugs, medicaments and biological substances; Z79.891 Long term (current) use of opiate analgesic; Z86.79 Personal history of other diseases of the circulatory system
CPT/HCPCS: 71045; 71046; 76604; 80048; 80053; 82330; 82805; 83735; 85025; 85027; 85610; 85730; 86850; 86891; 86900; 86901; 86920; 94002; 94640

== ENCOUNTER → 2025-01-21 | Outpatient (CLI) | payer MEDICARE ==
--- NOTE | 2025-01-21 11:04 | CT ---
EXAMINATION TYPE: CT chest wo con DATE OF EXAM: 01/21/2025 8:01 AM COMPARISON: 12/17/2021 CLINICAL INDICATION: Male, 74 years old with history of R07.9 Chest pain Eval for sternal instability ; PHH, Open heart sx 10 mo ago, eval for sternal instability. TECHNIQUE: Multiple axial images were obtained through the chest without IV contrast. Sagittal and co juan m reformats were created for review. MIP was performed on a separate workstation. CT DLP: 651 mGycm, Automated exposure control for dose reduction was used. FINDINGS: Postsurgical change of median sternotomy. Residual strandy density overlying the sternotomy likely sc ar tissue. No abnormal fluid collection is seen. There is some partial bony bridging along the upper third sternal body and also at the xiphoid, but otherwise, the majority of the sternotomy margins josiah ear corticated and nonunited. Some strandy density, likely additional scarring in the anterior mediastinum deep to the sternotomy. Heart borderline in size without pericardial effusion. Post-CABG changes are present. Ectatic ascending aorta 3.6 cm. Mild aneurysm upper descending thoracic aorta at 3.5 cm. Aneurysm mid descending thoracic aorta 3.5 cm. Conventional arch vessel branching anatomy. Borderline to mildly enlarged caliber main right and left pulmonary arteries up to 2.7 cm may reflect underlying pulmonary arterial hypertension. No thoracic lymph adenopathy by CT size criteria. Mild bronchial wall thickening. Some strandy scarring or atelectasis within the lingula and bilateral lung bases. No consolidation or pleural effusion. Visualized upper abdomen shows post cystectomy clips and scattered mild stool. DISH throughout the mid and lower thoracic spine with slight accentuated mid thoracic kyphosis. IMPRESSION: 1. Status post median sternotomy and post CABG changes. 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 Small areas of bony bridging are present along the superior third sternal body and also at th e xiphoid process. 2. Some strandy scar tissue superficial and deep to the sternotomy. No abnormal fluid collection. 3. 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 Possible underlying pulmonary arterial hypert ension. Mild bronchial wall thickening could reflect bronchitis or asthma. 4. Incidental DISH throughout the mid and lower thoracic spine. [facility], , 01/21/2025 11:02 AM
== END | disposition home or self-care (01) ==
LOC: RADCTMAIN 07:41
PROVIDERS: ATTEND Thoracic Surgery (Cardiothoracic Vascular Surgery)
DX: I71.21 Aneurysm of the ascending aorta, without rupture (principal); M48.14 Ankylosing hyperostosis [Forestier], thoracic region; Z98.890 Other specified postprocedural states; Z95.1 Presence of aortocoronary bypass graft
CPT/HCPCS: 71250